=== PATIENT | female | born 1935 | race Caucasian/White ===

== ENCOUNTER 2022-10-31 12:46 | Emergency (ER) | payer OTHER, SELFPAY ==
[2022-10-31 13:00] VITALS: BP 134/86; PULSE 58; RESP 20; TEMP 36.2; O2SAT 98; BMI 38.6
--- NOTE | 2022-10-31 13:23 | CRLHL7_ITS ---
For Patients: As a result of the Cures Act, medical imaging exams and procedure reports are released immediately into your electronic medical record. You may view this report before your referring provider. If you have questions, please contact your health care provider. INDICATION: Shortness of breath. TECHNIQUE: Chest 1 views. COMPARISON: None. FINDINGS: Lungs: Clear lungs. No consolidation. Pleura: No pleural effusion or pneumothorax. Heart and Mediastinum: The cardiomediastinal silhouette is enlarged. The vessels are unremarkable. Bones: Unremarkable. IMPRESSION: No acute cardiopulmonary disease. Dictated by Chad Nunes MD @ 10/31/2022 2:20:40 PM (Electronically Signed)
--- OUTSIDE RECORDS SUMMARY | 2022-10-31 13:40 | XMS_ITS | Clinical Summary ---
:1935 Author Organization [email or web address] [facility] [place] [address] Care Team Providers Name Role Phone Pcp, No Primary Care Provider Unavailable Allergies Active Allergy Reactions Severity Noted Date Comments Alendronate Other - Describe In Low 12/16/2021 Nauseate d, joint Comment Field pain Codeine Rash 04/10/2015 Morphine Rash 04/10/2015 Phenobarbital Itching 07/15/2019 Sulfa (Sulfonamide Stomach Upset 04/10/2015 Antibiotics) Medications Medication Sig Dispensed Refills Start Date End Date Status albuterol HFA Inhale 2 0 04/10/2015 Activ e (PROAIR HFA) 90 Puffs by mcg/actuation mouth 4 inhaler times daily if needed. torsemide (DEMADEX) Take 1 30 tablet 2 07/22/2019 Active 10 mg tablet by tabletIndications: mouth once HTN (hypertension) daily. fluticasone Use once 0 01/14/2021 Active yac-zyhkdhjomzxl-oty daily anterol (Trelegy Ellipta) 100-62.5-25 mcg inhaler cholecalciferol Take 1 0 Acti ve (VITAMIN D3) 1,000 Capsule by unit capsule mouth. artificial tears, Place 1 Drop 0 Active [employer]-Uen, into the 0.1-0.3-0.2 % eye(s). ophthalmic solution ibuprofen (ADVIL; Take 400 mg 0 Active MOTRIN) 200 mg by mouth tablet every 6 hours if needed. Eliquis 2.5 mg Take 2.5 mg 0 05/08/2022 Ac tive tablet by mouth two times daily. metoprolol tartrate Take 1 0 10/02/2022 Active (LOPRESSOR) 50 mg Tablet (50 tablet mg) by mouth once daily. calcium carbonate Chew 1 0 10/02/2022 A ctive CHEWABLE (Tums Tablet by Ultra) 400 mg mouth once calcium (1,000 mg) daily. chew atorvastatin Take 1 0 10/02/2022 Active (LIPITOR) 80 mg Tablet (80 tablet mg) by mouth at bedtime. multivitamin (MVI) Take 1 0 10/02/2022 Active tablet Tablet by mouth once daily. carvedilol (COREG) 1 tablet 2 0 04/10/2015 Discontinued 3.125 mg tablet times daily. 2 ( *Patient states no longer taking/Not on sending fa cility list) potassium chloride Daily 0 07/15/2019 Discontinued (MICRO-K) 10 mEq 2 (*P atient states Controlled-release n o longer capsule taking/Not on sending fa cility list) apixaban (ELIQUIS) Twice A Day 0 Discontinued tablet in a dose 2 (*P atient states pack no longer taking/Not on sending fa cility list) calcium carbonate Daily 0 Di scontinued (OS-TOO 500) 500 mg 2 (*Patient states calcium (1,250 mg) n o longer tablet taking/Not on sending fa cility list) BREO ELLIPTA 100-25 3 05/21/2019 Discontinued mcg/dose inhaler 2 (*P atient states no longer taking/Not on sending fa cility list) lisinopril Take 1 30 tablet 3 07/22/2019 Disconti nued (PRINIVIL; ZESTRIL) tablet by 2 (*Patient states 20 mg mouth once no longer tabletIndications: daily. t aking/Not on HTN (hypertension) s ending facility list) atorvastatin 0 09/17/2022 Discon tinued (LIPITOR) 80 mg 2 (Reo rder tablet (E-cancel not sent)) metoprolol tartrate Take 50 mg 0 01/14/2021 10/02/20 2 Discontinued (LOPRESSOR) 50 mg by mouth. 2 (R eorder tablet (E-cancel not sent)) Active Problems Problem Noted Date Chronic atrial fibrillation 10/02/2022 COPD (chronic obstructive pulmonary disease) 2 Age related osteoporosis 10/02/2022 HTN (hypertension) 10/02/2022 Encounters Date Type Specialty Care Team Description 10/31/2022 Office Visit Karissa San PA Aiyana rtness Of Breath (Low heart rate and Bp at home, low energy) 10/31/2022 Telephone Karissa San PA ER visit 10/31/2022 Travel 10/29/2022 Nurse Triage Jaci Gómez Low Blo od Pressure MD Leann 10/23/2022 Orders Only Scanner <No scans attac hed> 10/23/2022 Orders Only Scanner <No scans attac hed> 10/20/2022 Telephone Jaci Gómez (Physical Therapy) MD Leann 10/02/2022 Office Visit [facility] (discharged MD Leann 09/18- stroke ) 10/02/2022 Travel from Last 3 Months Immunizations Name Administration Dates Next Due AMB INFLUENZA IIV3 (AGE 65+ YRS) PF (Flu Clinic Only) 2021 COVID-19 vaccine (Moderna 100mcg/0.5mL) MD JMV 07/11/2021, 06/13/2021 Hepatitis B (Adult) 11/23/1994 Influenza, High-dose Quadrivalent Inactivated 07/17/2022, Pneumococcal Poly,23-Valent (Pneumovax) 11/23/2001 Pneumococcal conj 7-Valent (Prevnar 7) 11/23/2014 Tdap 04/16/2022 Family History Medical History Relation Name Comments Other Daughter Adopted Other Son Adopted Relation Name Status Comments Daughter Alive Son Alive Social History Tobacco Use Types Packs/Day Years Used Date Former Smoker Smokeless Tobacco: Never Used Tobacco Cessation: Counseling Given: Yes Alcohol Use Standard Drinks/Week Comments Yes 0 (1 standard drink = 0.6 oz pure alcoho l) Alcohol Habits Answer Date Recorded How often do you have a drink containing alcohol? 2-4 times a month 07/22/2019 How many drinks containing alcohol do you have on a 1 or 2 07/22/2019 typical day when you are drinking? How often do you have six or more drinks on one Not asked occasion? 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 Obstetrics History Last Filed Vital Signs Vital Sign Reading Time Taken Comments Blood Pressure 97/62 10/31/2022 11:25 AM CONCRETE HOPPER OPERATOR Pulse 64 10/31/2022 11:25 AM CONCRETE HOPPER OPERATOR Temperature 37.2 ??C (98.9 ??F) 07/22/2019 2:39 PM CDT Respiratory Rate - - Oxygen Saturation 98% 10/31/2022 11:25 AM CONCRETE HOPPER OPERATOR Inhaled Oxygen Concentration - - Weight 101 kg (222 lb 9.6 oz) 10/02/2022 1:34 PM CONCRETE HOPPER OPERATOR Height 162 cm (5' 3.78) 07/22/2019 2:39 PM CDT Body Mass Index 38.47 07/22/2019 2:39 PM CDT Plan of Treatment Health Maintenance Due Date Last Done Comments Zoster (shingles) series for age 50+ 1987 (1 of 2) DEXA/DXA scan for age 65+ 2002 Medicare Wellness for age 65+ 2002 Pneumococcal series for age 65+ (2 - 11/23/2015 11/23/2014, 11/23/2001 PCV) BMI (ht and wt on same day) for age 0807/22/2020 07/22/2019 18+ Depression screening for age 12+ 07/22/2020 07/22/2019 COVID-19 vaccine series (3 - Booster 09/05/2021 07/11/2021, 06/13/2021 for Moderna series) Influenza for age 65+ 07/24/2022 07/17/2022, 07/17/2022, 08/20/2020 Tetanus booster 04/16/2032 04/16/2022 Tdap Completed 04/16/2022 Procedures Procedure Name Priority Date/Time Associated Diagnosis Comme nts SCAN CORRESP-EKG 10/23/2022 12:00 AM Resu lts for this RESULTS CONCRETE HOPPER OPERATOR procedure are i n the results section. SCAN 10/23/2022 12:00 AM Results for this CORRESP-DIAGNOSTICS CONCRETE HOPPER OPERATOR procedur e are in the results section. from Last 3 Months Results SCAN CORRESP-EKG RESULTS (10/23/2022 12:00 AM CONCRETE HOPPER OPERATOR) Narrative This result has an attachment that is no t available. Scanner OTHER SCAN CORRESP-DIAGNOSTICS (10/23/2022 12:00 AM CONCRETE HOPPER OPERATOR) Narrative This result has an attachment that is no t available. 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
[2022-10-31 13:44] VITALS: O2SAT 96
[2022-10-31 13:48] LABS: Basophils Percent Auto 0.3 % (0.0-3.0); Eosinophils Percent Auto 1.9 % (0.0-7.0); Hematocrit 38.3 % (33.0-51.0); Hemoglobin* 12.7 gm/dL (12.0-16.0); Immature Granulocytes Pct Auto 0.3 %; Lymphocytes Percent Auto 19.8 % (20-44); Mean Corpuscular HGB Conc 33 gm/dL (32-36); Mean Corpuscular Hemoglobin 28 pg (26-34); Mean Corpuscular Volume 83 fL (80-100); Monocytes Percent Auto 7.9 % (0.0-11.0); Neutrophils Percent Auto 69.8 % (42.0-72.0); Platelet Count* 354 K/uL (140-440); RDW Coefficient of Variation % 13.6 % (11.5-15.5); Red Blood Count 4.59 m/uL (4.00-5.20); White Blood Count* 11.69 K/uL (4.50-11.00)
[2022-10-31 13:53] LABS: Slide Review Reflex No
[2022-10-31 13:55] LABS: Appearance Urine Clear (Clear); Bilirubin Urine Negative (Negative); Blood Urine Trace-intact (Negative); Color Urine Yellow (Yellow); Glucose Urine Negative (Negative); Ketones Urine Negative (Negative); Leukocyte Esterase Urine Negative (Negative); Nitrite Urine Negative (Negative); Protein Urine Negative (Negative); Urobilinogen Urine 0.2 (0.2-1.0); pH Urine 6.5 (5.0-8.5)
[2022-10-31 13:59] LABS: Albumin* 4.2 g/dL (3.3-5.0); Chloride* 96 mmol/L (96-114); Sodium* 132 mmol/L (135-149)
[2022-10-31 14:01] LABS: Creatinine* 0.9 mg/dL (0.5-1.5); Est. Creatinine Clearance* 36.16; Estimated Glomerular Filt Rate 63 ml/min
[2022-10-31 14:02] LABS: Alanine Aminotransferase* 26 U/L (4-35); Alkaline Phosphatase* 113 U/L (40-150); Aspartate Amino Transferase* 33 U/L (12-35); Bilirubin Direct* 0.2 mg/dL (0.0-0.5); Bilirubin Total* 0.6 mg/dL (0.1-1.5); Blood Urea Nitrogen* 17 mg/dL (7-30); Carbon Dioxide* 27 mmol/L (20-32); Glucose* 98 mg/dL (60-115); Total Protein* 7.1 g/dL (6.0-8.3)
[2022-10-31 14:03] LABS: Calcium* 8.5 mg/dL (8.4-10.6)
[2022-10-31 14:05] LABS: C Reactive Protein* 1.6 mg/dL (0.5-1.0)
[2022-10-31] MEDS: IPRAT-ALBUT 0.5-2.5 MG/3 ML NEB 1 NEB IH (14:05)
[2022-10-31 14:06] LABS: RBC Urine 0-2 (0-2); WBC Urine 0-2 (0-5)
[2022-10-31 14:11] VITALS: PULSE 71; O2SAT 100
[2022-10-31 14:19] LABS: PCR FLU A Negative PCR FLU A (Negative); PCR FLU B Negative PCR FLU B (Negative)
[2022-10-31 14:21] VITALS: BP 138/89; PULSE 76; O2SAT 96
[2022-10-31 14:25] LABS: SARS PCR* Negative SARS-CoV-2 (Negative)
[2022-10-31 14:31] VITALS: BP 142/80; PULSE 76; O2SAT 94
[2022-10-31 14:32] VITALS: PULSE 84; O2SAT 97
[2022-10-31 14:33] LABS: Troponin I* < 0.01 ng/mL (0.01-0.04)
--- NOTE | 2022-10-31 14:33 | ED.NURSE ---
feels improved after neb
--- NOTE | 2022-10-31 14:38 | ED_ITS ---
HPI - General Adult General Chief complaint: Shortness of Breath/Dyspnea Stated complaint: Irregular EKG Time Seen by Provider: 10/31/22 12:52 Source: patient Mode of arrival: ambulatory Limitations: no limitations History of Present Illness HPI narrative: 86-year-old female coming in today concerned about shortness of breath. She has felt this way for about a week with worsening shortness of breath. She does h ave a COPD which is not oxygen dependent. She denies any fevers or chills. No changes in her appetite. She does have a cough which is not new. She denies difficulty sleeping at night or lying flat. She denies swelling of her legs. She denies chest pain. Shortness of breath comes on with minimal exertion, which she also has some baseline shortness of breath at rest. Patient is in [place] resident, moved to [place] last August. She denies any recent trips. No recent surgeries. Patient's past medical history significant for COPD for which she is on Trelegy. Atrial fibrillation-patient is on daily aspirin and Eliquis. History of CVA-patient is on atorvastatin. She is also on daily metoprolol and torsemide. Related Data Home Medications Medication Instructions Recorded Confirmed apixaban 2.5 mg tablet (Eliquis) 2.5 mg PO Q12H 10/31/22 10/31/22 aspirin 81 mg chewable tablet 81 mg PO DAILY 10/31/22 10/31/22 (Aspirin Childrens) atorvastatin 80 mg tablet (Lipitor) 80 mg PO DAILY 10/31/22 10/31/22 fluticasone fur. 100 mcg-umeclid 1 inh inhalation Q24H 10/31/22 10/31/22 62.5 mcg-vilant 25 mcg inhalat.powder (Trelegy Ellipta) metoprolol tartrate 50 mg tablet 50 mg PO DAILY 10/31/22 10/31/22 torsemide 10 mg tablet 10 mg PO DAILY 10/31/22 10/31/22 Previous Rx's Medication Instructions Recorded methylprednisolone 4 mg tablets in See Rx Instructions PO .COMPLEX 10/31/22 a dose pack (Medrol (Michael)) #21 ea Allergies Allergy/AdvReac Type Severity Reaction Status Date / Time codeine Allergy Mild itchy Verified 10/31/22 13:06 morphine Allergy Mild itchy Verified 10/31/22 13:06 Sulfa (Sulfonamide Allergy Mild rash Verified 10/31/22 13:06 Antibiotics) oxycodone Allergy Mild stomach Uncoded 10/31/22 13:06 upset Review of Systems Status of ROS: Reports: 10 or more systems reviewed and unremarkable except as noted in History and below [facility] Social History Smoking Status: Never smoker Do you use any of these nicotine containing products: None How often do you have a drink containing alcohol: never How often do you have six or more drinks on one occasion: Never AUDIT-C Alcohol total score: 0 Non-prescribed substance use: denies use Exam Narrative: Exam Narrative: Overweight, well-developed patient in no acute distress. Alert and oriented. Answers questions appropriately. Mood and affect are appropriate. Thoughts are goal oriented and rational. No tangential or magical thinking noted. Patient speaks in full sentences without needing to catch her breath. Speech is not slurred or pressured. HEENT: Normocephalic atraumatic. Pupils are equally round reactive to light. Extraocular muscles are intact. Conjunctivae are moist without any icterus noted. Moist mucous membranes. Cardiovascular: Heart is regular rate and rhythm S1 and S2 are present without any murmurs. Lungs: Bilateral wheezing is appreciated. Abdomen: Soft and nontender nondistended with normal bowel sounds. No guarding or rebound. Extremities: Bilateral lower extremities are without edema. Normal DP and PT pulses. Skin: Well perfused without any obvious rashes. Const: Vital Signs, click to edit/add: Vital Signs - 24 hr 10/31/22 13:00 10/31/22 13:44 10/31/22 14:11 Temperature 97.1 F L Pulse Rate 71 Pulse Rate [Left P ulse Oximeter] 58 L Respiratory Rate 20 Blood Pressure [Ri ght Upper Arm] 134/86 Pulse Oximetry 98 96 100 Oxygen Delivery Me thod Room Air Course Course Hospital Course: Patient received a DuoNeb which did seem to make her feel better. Lab work was unremarkable. EKG, read by me, shows atrial fibrillation with a pulse of 59. Chest x-ray, read by me, was unremarkable. Patient had no evidence of hypoxia or tachypnea while she was here. Vital Signs Vital signs: Initial Vital Signs Temperature 97.1 F L 10/31/22 13:00 Temperature Source Temporal Artery Scan 10/31/22 13:00 Pulse Rate 58 L 10/31/22 13:00 Respiratory Rate 20 10/31/22 13:00 Blood Pressure 134/86 10/31/22 13:00 Blood Pressure Mean 102 10/31/22 13:00 Blood Pressure Position Sitting 10/31/22 13:00 Pulse Oximetry 98 10/31/22 13:00 Oxygen Delivery Method 10/31/22 13:00 Vital Signs Temperature 97.1 F L 10/31/22 13:00 Pulse Rate 58 L 10/31/22 13:00 Respiratory Rate 20 10/31/22 13:00 Blood Pressure 134/86 10/31/22 13:00 Pulse Oximetry 98 10/31/22 13:00 Oxygen Delivery Method 10/31/22 13:00 Temperature 97.1 F L 10/31/22 13:00 Pulse Rate 71 10/31/22 14:11 Respiratory Rate 20 10/31/22 13:00 Blood Pressure 134/86 10/31/22 13:00 Pulse Oximetry 100 10/31/22 14:11 Oxygen Delivery Method 10/31/22 13:00 Medical Decision Making MDM Narrative Medical decision making narrative: 86-year-old female with a probable COPD exacerbation which is fairly mild. Will treat her with a Medrol Dosepak. I do want her follow-up with primary care next week. Patient was agreeable with everything we discussed had no other questions. Lab Data Lab results reviewed: Yes I reviewed the patient's lab results Labs: Lab Results 10/31/22 10/31/22 10/31/22 Range/Units 13:23 13:37 13:37 WBC 11.69 H (4.50-11.00) K/uL RBC 4.59 (4.00-5.20) m/uL Hgb 12.7 (12.0-16.0) gm/dL Hct 38.3 (33.0-51.0) % MCV 83 (80-100) fL MCH 28 (26-34) pg MCHC 33 (32-36) gm/dL RDW Coeff of Marissa 13.6 (11.5-15.5) % Plt Count 354 (140-440) K/uL Neut % (Auto) 69.8 (42.0-72.0) % Lymph % (Auto) 19.8 L (20-44) % Walker % (Auto) 7.9 (0.0-11.0) % Eos % (Auto) 1.9 (0.0-7.0) % Baso % (Auto) 0.3 (0.0-3.0) % Neut # (Auto) 8.20 H (1.7-7.0) K/uL Lymph # (Auto) 2.30 (0.90-2.90) K/uL Walker # (Auto) 0.90 (0.00-0.90) K/UL Eos # (Auto) 0.20 (0.00-0.50) K/uL Baso # (Auto) 0.00 (0.00-0.30) K/uL Abs Immat Gran (auto) 0.00 (0.00-0.30) K/uL Imm/Tot Granulo (auto) 0.3 % Sodium 132 L (135-149) mmol/L Potassium 4.0 (3.6-5.1) mmol/L Chloride 96 (96-114) mmol/L Carbon Dioxide 27 (20-32) mmol/L BUN 17 (7-30) mg/dL Creatinine 0.9 (0.5-1.5) mg/dL Estimated Creat Clear 36.16 Estimated GFR 63 ml/min Glucose 98 (60-115) mg/dL Calcium 8.5 (8.4-10.6) mg/dL Total Bilirubin 0.6 (0.1-1.5) mg/dL Direct Bilirubin 0.2 (0.0-0.5) mg/dL AST 33 (12-35) U/L ALT 26 (4-35) U/L Alkaline Phosphatase 113 (40-150) U/L Troponin I (0.01-0.04) ng/mL C-Reactive Protein 1.6 H (0.5-1.0) mg/dL Total Protein 7.1 (6.0-8.3) g/dL Albumin 4.2 (3.3-5.0) g/dL Urine Color (Yellow) Urine Appearance (Clear) Urine pH (5.0-8.5) Ur Specific [place] (1.000-1.030) Urine Protein (Negative) Urine Glucose (UA) (Negative) Urine Ketones (Negative) Urine Blood (Negative) Urine Nitrite (Negative) Urine Bilirubin (Negative) Urine Urobilinogen (0.2-1.0) Ur Leukocyte Esterase (Negative) Urine RBC (0-2) Urine WBC (0-5) Ur Squamous Epith Cells (None-Few) Urine Bacteria (None) SARS-CoV-2 (PCR) Negative SARS-CoV-2 (Negative) Influenza Type A (PCR) Negative PCR FLU A (Negative) Influenza Type B (PCR) Negative PCR FLU B (Negative) 10/31/22 10/31/22 Range/Units 13:37 13:45 WBC (4.50-11.00) K/uL RBC (4.00-5.20) m/uL Hgb (12.0-16.0) gm/dL Hct (33.0-51.0) % MCV (80-100) fL MCH (26-34) pg MCHC (32-36) gm/dL RDW Coeff of Marissa (11.5-15.5) % Plt Count (140-440) K/uL Neut % (Auto) (42.0-72.0) % Lymph % (Auto) (20-44) % Walker % (Auto) (0.0-11.0) % Eos % (Auto) (0.0-7.0) % Baso % (Auto) (0.0-3.0) % Neut # (Auto) (1.7-7.0) K/uL Lymph # (Auto) (0.90-2.90) K/uL Walker # (Auto) (0.00-0.90) K/UL Eos # (Auto) (0.00-0.50) K/uL Baso # (Auto) (0.00-0.30) K/uL Abs Immat Gran (auto) (0.00-0.30) K/uL Imm/Tot Granulo (auto) % Sodium (135-149) mmol/L Potassium (3.6-5.1) mmol/L Chloride (96-114) mmol/L Carbon Dioxide (20-32) mmol/L BUN (7-30) mg/dL Creatinine (0.5-1.5) mg/dL Estimated Creat Clear Estimated GFR ml/min Glucose (60-115) mg/dL Calcium (8.4-10.6) mg/dL Total Bilirubin (0.1-1.5) mg/dL Direct Bilirubin (0.0-0.5) mg/dL AST (12-35) U/L ALT (4-35) U/L Alkaline Phosphatase (40-150) U/L Troponin I < 0.01 L (0.01-0.04) ng/mL C-Reactive Protein (0.5-1.0) mg/dL Total Protein (6.0-8.3) g/dL Albumin (3.3-5.0) g/dL Urine Color Yellow (Yellow) Urine Appearance Clear (Clear) Urine pH 6.5 (5.0-8.5) Ur Specific [place] 1.010 (1.000-1.030) Urine Protein Negative (Negative) Urine Glucose (UA) Negative (Negative) Urine Ketones Negative (Negative) Urine Blood Trace-intact A (Negative) Urine Nitrite Negative (Negative) Urine Bilirubin Negative (Negative) Urine Urobilinogen 0.2 (0.2-1.0) Ur Leukocyte Esterase Negative (Negative) Urine RBC 0-2 (0-2) Urine WBC 0-2 (0-5) Ur Squamous Epith Cells None (None-Few) Urine Bacteria None (None) SARS-CoV-2 (PCR) (Negative) Influenza Type A (PCR) (Negative) Influenza Type B (PCR) (Negative) Imaging Data Chest x-ray: Attestation: I have reviewed the pertinent imaging results. Radiologist's impression: Chest 1 views. COMPARISON: None. FINDINGS: Lungs: Clear lungs. No consolidation. Pleura: No pleural effusion or pneumothorax. Heart and Mediastinum: The cardiomediastinal silhouette is enlarged. The vessels are unremarkable. Bones: Unremarkable. IMPRESSION: No acute cardiopulmonary disease. ECG Data Attestation: I personally reviewed and interpreted this ECG as follows: (Atrial fibrillation, pulse 59) Discharge Plan Discharge Clinical Impression: COPD exacerbation Patient Disposition: Home, Self-Care Condition: Stable Additional Instructions: Take steroids as prescribed. Follow-up with your primary care provider next week for a checkup. Return to the ER if your symptoms are getting worse instead of better. Prescriptions: New methylprednisolone [Medrol (Michael)] 4 mg tablets,dose pack See Rx Instructions .ROUTE .COMPLEX Qty: 21 0RF Rx Instructions: orally per package directions No Action Eliquis 2.5 mg tablet 2.5 mg PO Q12H Label Comments: TAKE 1 TABLET BY MOUTH TWICE DAILY torsemide 10 mg tablet 10 mg PO DAILY Label Comments: TAKE 1 TABLET BY MOUTH TWICE DAILY metoprolol tartrate 50 mg tablet 50 mg PO DAILY Label Comments: TAKE 1 TABLET BY MOUTH EVERY DAY WITH MEALS Trelegy Ellipta 100-62.5-25 mcg blister with device 1 inh INHALATION Q24H Label Comments: INHALE 1 PUFF BY MOUTH EVERY DAY atorvastatin [Lipitor] 80 mg tablet 80 mg PO DAILY aspirin [Aspirin Childrens] 81 mg tablet,chewable 81 mg PO DAILY Follow Up/Referrals: Provider,Not a Local [Primary Care Provider] - Stand Alone Forms: [email or web address] Info Instructions
== END 2022-10-31 15:13 | disposition home or self-care (01) ==
PROVIDERS: Emergency Provider Family Medicine
DX: J44.1 Chronic obstructive pulmonary disease with (acute) exacerbation (principal)
CPT/HCPCS: 36415; 71046; 80048; 80076; 81003; 81015; 84484; 85025; 86140; 87631; 93005; 94640; 94761; 99284; 99285

== ENCOUNTER 2022-12-07 04:15 | Outpatient (CLI) | payer OTHER, SELFPAY | END 2022-12-07 04:16 | disposition home or self-care (01) | LOC: AMB 12-08 01:35 | PROVIDERS: Visit Provider Family Medicine | DX: R10.9 Unspecified abdominal pain (principal) | CPT/HCPCS: A0425; A0433 ==

== ENCOUNTER 2022-12-07 04:57 | Inpatient (IN) | payer OTHER, SELFPAY ==
[2022-12-07] VITALS (37 sets, daily range): BP systolic 103–176; BP diastolic 66–113; PULSE 66–101; RESP 16–20; TEMP 36.4–37.4; O2SAT 87–98; BMI 36.4
--- NOTE | 2022-12-07 05:39 | ED_ITS ---
HPI - Abdominal Pain General Chief Complaint: Abdominal Pain Stated Complaint: Abdominal Pain Time Seen by Provider: 12/07/22 05:29 History of Present Illness HPI narrative: 87 yo woman presenting to the ED with almost 8 hours now of colicky abdominal pain. Would describe herself as constipated. Has struggled with this for years. However did have a bowel movement earlier today. Prior to that had been a couple of days. No fever. Is nauseated. Does not feel she needs anything fo r pain right now. Did receive something for nausea and pain via EMS. Initiated on fluids. Never history kidney stones. History of smoking but quit 27-30 years ago. Tingling in her feet that is chronic. Otherwise no pain radiating pain to arms or legs. No loss of sensation otherwise. No dysuria or frequency. Generally lives in [place]. Here staying with daughter. 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 History of chronic atrial fibrillation anticoagulated with apixaban and rate controlled History of CLL Hypertension COPD History of venous stasis leg disease with endovenous ablation bilaterally history of endometriosis status post total abdominal hysterectomy with bilateral salpingo-oophorectomy Related Data Home Medications Medication Instructions Recorded Confirmed apixaban 2.5 mg tablet (Eliquis) 2.5 mg PO Q12H 10/31/22 10/31/22 aspirin 81 mg chewable tablet 81 mg PO DAILY 10/31/22 10/31/22 (Aspirin Childrens) atorvastatin 80 mg tablet (Lipitor) 80 mg PO DAILY 10/31/22 10/31/22 fluticasone fur. 100 mcg-umeclid 1 inh inhalation Q24H 10/31/22 10/31/22 62.5 mcg-vilant 25 mcg inhalat.powder (Trelegy Ellipta) metoprolol tartrate 50 mg tablet 50 mg PO DAILY 10/31/22 10/31/22 torsemide 10 mg tablet 10 mg PO DAILY 10/31/22 10/31/22 Previous Rx's Medication Instructions Recorded methylprednisolone 4 mg tablets in See Rx Instructions PO .COMPLEX 10/31/22 a dose pack (Medrol (Michael)) #21 ea Allergies Allergy/AdvReac Type Severity Reaction Status Date / Time codeine Allergy Mild itchy Verified 10/31/22 13:06 morphine Allergy Mild itchy Verified 10/31/22 13:06 Sulfa (Sulfonamide Allergy Mild rash Verified 10/31/22 13:06 Antibiotics) oxycodone Allergy Mild stomach Uncoded 10/31/22 13:06 upset Review of Systems Status of ROS Reports: 10 or more systems reviewed and unremarkable except as noted in History and below [facility] Social History Smoking Status: Never smoker Do you use any of these nicotine containing products: None How often do you have a drink containing alcohol: never How often do you have six or more drinks on one occasion: Never AUDIT-C Alcohol total score: 0 Non-prescribed substance use: denies use service: No Exam Narrative: Exam Narrative: Seems generally uncomfortable as she looks me up and down. Skin is warm and dry. No no extremity edema maybe little dependent in the lower extremities with some diffuse superficial varicosities. Oropharynx is rather dry. Cranial nerves 2-12 look to be intact. Lungs with clearing bi basilar crepitus otherwise clear. heart appears to be irregularly irregular. Abdomen with normoactive bowel sounds. Quite tender in right upper quadrant and little bit in the epigastrium. No peritoneal signs Const: Vital Signs, click to edit/add: Vital Signs - 24 hr 12/07/22 05:04 12/07/22 06:34 12/07/22 07:06 Temperature 97.6 F Pulse Rate Pulse Rate [Right Pulse Oximeter] 76 75 67 Respiratory Rate 20 18 16 Blood Pressure Blood Pressure [Le ft Upper Arm] 147/98 H 171/113 H 171/106 H Pulse Oximetry 96 98 92 Oxygen Delivery Me thod Room Air Room Air Room Air 12/07/22 07:30 12/07/22 08:35 12/07/22 08:36 Temperature Pulse Rate 101 H Pulse Rate [Right Pulse Oximeter] 79 Respiratory Rate Blood Pressure 165/80 H Blood Pressure [Le ft Upper Arm] 151/102 H Pulse Oximetry 96 92 Oxygen Delivery Me thod Room Air 12/07/22 08:00 Temperature Pulse Rate Pulse Rate [Right Pulse Oximeter] 89 Respiratory Rate Blood Pressure Blood Pressure [Le ft Upper Arm] 166/113 H Pulse Oximetry 95 Oxygen Delivery Me thod Room Air Documenting provider has reviewed patient's vital signs: yes Course Vital Signs Vital signs: Initial Vital Signs Temperature 97.6 F 12/07/22 05:04 Temperature Source Temporal Artery Scan 12/07/22 05:04 Pulse Rate 76 12/07/22 05:04 Pulse Rhythm 12/07/22 05:04 Respiratory Rate 20 12/07/22 05:04 Blood Pressure 147/98 H 12/07/22 05:04 Blood Pressure Mean 114 12/07/22 05:04 Blood Pressure Position Semi-Fowlers 12/07/22 05:04 Pulse Oximetry 96 12/07/22 05:04 Oxygen Delivery Method 12/07/22 05:04 Vital Signs Temperature 97.6 F 12/07/22 05:04 Pulse Rate 76 12/07/22 05:04 Respiratory Rate 20 12/07/22 05:04 Blood Pressure 147/98 H 12/07/22 05:04 Pulse Oximetry 96 12/07/22 05:04 Oxygen Delivery Method 12/07/22 05:04 Temperature 97.6 F 12/07/22 05:04 Pulse Rate 101 H 12/07/22 08:35 Respiratory Rate 16 12/07/22 07:06 Blood Pressure 165/80 H 12/07/22 08:36 Pulse Oximetry 92 12/07/22 08:35 Oxygen Delivery Method 12/07/22 08:00 MDM - Abdominal Pain MDM Narrative Medical decision making narrative: Certainly could simply be constipation, for pain on exam at least most concentrated right upper quadrant. Initially ordered of flat plate of the abdomen. She noted initially she did feel she needed anything for pain but after I left did request pain medication. Was ordered for fentanyl which showed apparently did help. Has required repeat dosing. White count rather elevated. Will change flat plate to CT. Transaminases show an AST of 44. IV contrasted CT scan by my read shows atherosclerotic disease and a rather dilated gallbladder. Radiology over-read as below Indication: Abdominal pain, right upper quadrant Comparison: 07/15/2019 Technique: CT of the abdomen and pelvis with intravenous contrast. Findings: Gallbladder distention measuring up to 5.1 cm, with pericholecystic fat stranding seen. Small amount of high density material seen within the gallbladder on image 71, series 2. Trace/mild intrahepatic biliary ductal dilatation. The common bile duct appears normal in size. Duodenal diverticulum is present. No pancreatic ductal dilatation. Coronary artery calcifications. Biatrial enlargement. No pericardial effusion. No pleural effusion lung bases. Severe atherosclerotic disease. No abdominal aortic aneurysm. Non cirrhotic liver morphology with patent portal and hepatic veins. No suspicious liver lesion. The spleen is normal size. Adrenal glands appear unremarkable. The kidneys enhance symmetrically without hydronephrosis. No bowel obstruction. The urinary bladder appears unremarkable. Hysterectomy change. No suspicious adnexal mass. The bones appear stable. Mild wedging of several lower thoracic vertebral bodies. Large body habitus. End-stage degenerative change left hip. Mild degenerative change right hip. Impression: Acute cholecystitis. I have spoke with our surgeon who would anticipate admission with antibiotics and surgery pending hold of anticoagulant. At this time struggling with bed availability. Hoping to still admit at this facility but also looking elsewhere. This disposition pending at change of shift handoff. Medical Records Attestation: I reviewed the patient's medical records. Lab Data Attestation: I reviewed the patient's lab results. Labs: Lab Results 12/07/22 12/07/22 12/07/22 Range/Units 05:56 05:56 05:56 WBC 15.78 H (4.50-11.00) K/uL RBC 4.34 (4.00-5.20) m/uL Hgb 12.1 (12.0-16.0) gm/dL Hct 36.9 (33.0-51.0) % MCV 85 (80-100) fL MCH 28 (26-34) pg MCHC 33 (32-36) gm/dL RDW Coeff of Marissa 14.2 (11.5-15.5) % Plt Count 290 (140-440) K/uL Neut % (Auto) 76.2 H (42.0-72.0) % Lymph % (Auto) 13.3 L (20-44) % [place] % (Auto) 6.7 (0.0-11.0) % Eos % (Auto) 3.2 (0.0-7.0) % Baso % (Auto) 0.3 (0.0-3.0) % Neut # (Auto) 12.00 H (1.7-7.0) K/uL Lymph # (Auto) 2.10 (0.90-2.90) K/uL [place] # (Auto) 1.10 H (0.00-0.90) K/UL Eos # (Auto) 0.50 (0.00-0.50) K/uL Baso # (Auto) 0.00 (0.00-0.30) K/uL INR 1.22 H (0.91-1.10) APTT 34 H (23-33) Seconds D-Dimer Quant (PE/DVT) 0.51 H (0.00-0.50) ug/ml Sodium 134 L (135-149) mmol/L Potassium 4.3 (3.6-5.1) mmol/L Chloride 103 (96-114) mmol/L Carbon Dioxide 25 (20-32) mmol/L BUN 24 (7-30) mg/dL Creatinine 0.9 (0.5-1.5) mg/dL Estimated GFR 63 ml/min Glucose 133 H (60-115) mg/dL Calcium 8.9 (8.4-10.6) mg/dL Total Bilirubin (0.1-1.5) mg/dL Direct Bilirubin (0.0-0.5) mg/dL AST (12-35) U/L ALT (4-35) U/L Alkaline Phosphatase (40-150) U/L C-Reactive Protein 0.5 (0.5-1.0) mg/dL Total Protein (6.0-8.3) g/dL Albumin (3.3-5.0) g/dL Lipase (23-300) U/L Urine Color (Yellow) Urine Appearance (Clear) Urine pH (5.0-8.5) Ur Specific [place] (1.000-1.030) Urine Protein (Negative) Urine Glucose (UA) (Negative) Urine Ketones (Negative) Urine Blood (Negative) Urine Nitrite (Negative) Urine Bilirubin (Negative) Urine Urobilinogen (0.2-1.0) Ur Leukocyte Esterase (Negative) Urine RBC (0-2) Urine WBC (0-5) Ur Squamous Epith Cells (None-Few) Urine Bacteria (None) Ethyl Alcohol (0.01-0.03) % 12/07/22 12/07/22 Range/Units 05:56 07:20 WBC (4.50-11.00) K/uL RBC (4.00-5.20) m/uL Hgb (12.0-16.0) gm/dL Hct (33.0-51.0) % MCV (80-100) fL MCH (26-34) pg MCHC (32-36) gm/dL RDW Coeff of Marissa (11.5-15.5) % Plt Count (140-440) K/uL Neut % (Auto) (42.0-72.0) % Lymph % (Auto) (20-44) % [place] % (Auto) (0.0-11.0) % Eos % (Auto) (0.0-7.0) % Baso % (Auto) (0.0-3.0) % Neut # (Auto) (1.7-7.0) K/uL Lymph # (Auto) (0.90-2.90) K/uL [place] # (Auto) (0.00-0.90) K/UL Eos # (Auto) (0.00-0.50) K/uL Baso # (Auto) (0.00-0.30) K/uL INR (0.91-1.10) APTT (23-33) Seconds D-Dimer Quant (PE/DVT) (0.00-0.50) ug/ml Sodium (135-149) mmol/L Potassium (3.6-5.1) mmol/L Chloride (96-114) mmol/L Carbon Dioxide (20-32) mmol/L BUN (7-30) mg/dL Creatinine (0.5-1.5) mg/dL Estimated GFR ml/min Glucose (60-115) mg/dL Calcium (8.4-10.6) mg/dL Total Bilirubin 0.8 (0.1-1.5) mg/dL Direct Bilirubin 0.3 (0.0-0.5) mg/dL AST 44 H (12-35) U/L ALT 33 (4-35) U/L Alkaline Phosphatase 153 H (40-150) U/L C-Reactive Protein (0.5-1.0) mg/dL Total Protein 6.5 (6.0-8.3) g/dL Albumin 3.8 (3.3-5.0) g/dL Lipase 128 (23-300) U/L Urine Color Yellow (Yellow) Urine Appearance Clear (Clear) Urine pH 6.0 (5.0-8.5) Ur Specific [place] 1.015 (1.000-1.030) Urine Protein Negative (Negative) Urine Glucose (UA) Negative (Negative) Urine Ketones 1+ A (Negative) Urine Blood Trace-intact A (Negative) Urine Nitrite Negative (Negative) Urine Bilirubin Negative (Negative) Urine Urobilinogen 0.2 (0.2-1.0) Ur Leukocyte Esterase Negative (Negative) Urine RBC 0-2 (0-2) Urine WBC 0-2 (0-5) Ur Squamous Epith Cells None (None-Few) Urine Bacteria Few A (None) Ethyl Alcohol < 0.01 L (0.01-0.03) % Discharge Plan Discharge Clinical Impression: Abdominal pain, Acute cholecystitis Prescriptions: No Action Eliquis 2.5 mg tablet 2.5 mg PO Q12H Label Comments: TAKE 1 TABLET BY MOUTH TWICE DAILY torsemide 10 mg tablet 10 mg PO DAILY Label Comments: TAKE 1 TABLET BY MOUTH TWICE DAILY metoprolol tartrate 50 mg tablet 50 mg PO DAILY Label Comments: TAKE 1 TABLET BY MOUTH EVERY DAY WITH MEALS Trelegy Ellipta 100-62.5-25 mcg blister with device 1 inh INHALATION Q24H Label Comments: INHALE 1 PUFF BY MOUTH EVERY DAY atorvastatin [Lipitor] 80 mg tablet 80 mg PO DAILY aspirin [Aspirin Childrens] 81 mg tablet,chewable 81 mg PO DAILY methylprednisolone [Medrol (Michael)] 4 mg tablets,dose pack See Rx Instructions .ROUTE .COMPLEX Qty: 21 0RF Rx Instructions: orally per package directions Follow Up/Referrals: Provider,Not a Local [Primary Care Provider] -
[2022-12-07] MEDS: 0.9 % SODIUM CHLORIDE 1000 ml 1,000 ML IV (05:51)
[2022-12-07 06:01] LABS: Basophils Percent Auto 0.3 % (0.0-3.0); Eosinophils Percent Auto 3.2 % (0.0-7.0); Hematocrit 36.9 % (33.0-51.0); Hemoglobin* 12.1 gm/dL (12.0-16.0); Immature Granulocytes Pct Auto 0.3 %; Lymphocytes Percent Auto 13.3 % (20-44); Mean Corpuscular HGB Conc 33 gm/dL (32-36); Mean Corpuscular Hemoglobin 28 pg (26-34); Mean Corpuscular Volume 85 fL (80-100); Monocytes Percent Auto 6.7 % (0.0-11.0); Neutrophils Percent Auto 76.2 % (42.0-72.0); Platelet Count* 290 K/uL (140-440); RDW Coefficient of Variation % 14.2 % (11.5-15.5); Red Blood Count 4.34 m/uL (4.00-5.20); White Blood Count* 15.78 K/uL (4.50-11.00)
[2022-12-07 06:02] LABS: Slide Review Reflex No
--- NOTE | 2022-12-07 06:06 | CRLHL7_ITS ---
For Patients: As a result of the Century Cures Act, medical imaging exams and procedure reports are released immediately into your electronic medical record. You may view this report before your referring provider. If you have questions, please contact your health care provider. Indication: Abdominal pain, right upper quadrant Comparison: 07/15/2019 Technique: CT of the abdomen and pelvis with intravenous contrast. Findings: Gallbladder distention measuring up to 5.1 cm, with pericholecystic fat stranding seen. Small amount of high density material seen within the gallbladder on image 71, series 2. Trace/mild intrahepatic biliary ductal dilatation. The common bile duct appears normal in size. Duodenal diverticulum is present. No pancreatic ductal dilatation. Coronary artery calcifications. Biatrial enlargement. No pericardial effusion. No pleural effusion lung bases. Severe atherosclerotic disease. No abdominal aortic aneurysm. Non cirrhotic liver morphology with patent portal and hepatic veins. No suspicious liver lesion. The spleen is normal size. Adrenal glands appear unremarkable. The kidneys enhance symmetrically without hydronephrosis. No bowel obstruction. The urinary bladder appears unremarkable. Hysterectomy change. No suspicious adnexal mass. The bones appear stable. Mild wedging of several lower thoracic vertebral bodies. Large body habitus. End-stage degenerative change left hip. Mild degenerative change right hip. Impression: Acute cholecystitis. Please note that all CT scans at this facility use dose modulation, iterative reconstruction, and/or weight-based dosing when appropriate to reduce radiation dose to as low as reasonably achievable. Dictated by Estuardo Carroll MD @ 12/07/2022 8:12:21 AM (Electronically Signed)
[2022-12-07 06:14] LABS: Chloride* 103 mmol/L (96-114); Potassium* 4.3 mmol/L (3.6-5.1); Sodium* 134 mmol/L (135-149)
[2022-12-07 06:15] LABS: Albumin* 3.8 g/dL (3.3-5.0)
[2022-12-07 06:17] LABS: Creatinine* 0.9 mg/dL (0.5-1.5); Estimated Glomerular Filt Rate 63 ml/min
[2022-12-07 06:18] LABS: Aspartate Amino Transferase* 44 U/L (12-35); Bilirubin Direct* 0.3 mg/dL (0.0-0.5); Bilirubin Total* 0.8 mg/dL (0.1-1.5); Blood Urea Nitrogen* 24 mg/dL (7-30); Calcium* 8.9 mg/dL (8.4-10.6); Carbon Dioxide* 25 mmol/L (20-32); Glucose* 133 mg/dL (60-115); Total Protein* 6.5 g/dL (6.0-8.3)
[2022-12-07 06:19] LABS: Alanine Aminotransferase* 33 U/L (4-35); Alkaline Phosphatase* 153 U/L (40-150); Lipase* 128 U/L (23-300)
[2022-12-07 06:20] LABS: D Dimer Quantitative* 0.51 ug/ml (0.00-0.50); Ethanol* < 0.01 % (0.01-0.03)
[2022-12-07 06:21] LABS: C Reactive Protein* 0.5 mg/dL (0.5-1.0)
[2022-12-07] MEDS: fentaNYL 100 MCG/2 ML inj 25 MCG IVP ×4 (06:33→13:56)
[2022-12-07 07:33] LABS: Appearance Urine Clear (Clear); Bilirubin Urine Negative (Negative); Blood Urine Trace-intact (Negative); Color Urine Yellow (Yellow); Glucose Urine Negative (Negative); Ketones Urine 1+ (Negative); Leukocyte Esterase Urine Negative (Negative); Nitrite Urine Negative (Negative); Protein Urine Negative (Negative); Specific Gravity Urine 1.015 (1.000-1.030); Urobilinogen Urine 0.2 (0.2-1.0)
[2022-12-07 07:49] LABS: RBC Urine 0-2 (0-2); WBC Urine 0-2 (0-5)
[2022-12-07 07:50] LABS: Bacteria Urine Few
[2022-12-07 08:49] LABS: INR 1.22 (0.91-1.10); Prothrombin Time 16.1 Seconds
[2022-12-07 08:50] LABS: Partial Thromboplastin Time* 34 Seconds (23-33)
--- NOTE | 2022-12-07 09:10 | ED.NURSE ---
HYDRATE CONTROL TENDER swabbed
[2022-12-07 10:16] LABS: SARS PCR* Negative SARS-CoV-2 (Negative)
--- NOTE | 2022-12-07 10:54 | ED.NURSE ---
pt was able to sleep for a little bit. up to bsc with assist. RUQ pain continues, asking for more pain meds. pt drinking water.
[2022-12-07] MEDS: LACTATED RINGERS 1000 ML 1,000 ML 100 ML IV (11:11)
[2022-12-07] MEDS: ONDANSETRON 2 MG/ML inj 4 MG IVP (11:12)
[2022-12-07] MEDS: PIPERACILLIN/TAZOBACTAM 3.375 GM in 0.9 % SODIUM CHLORIDE Mini-bag 100 ML IVPB ×2 (13:37→19:55)
--- NOTE | 2022-12-07 13:45 | ED.NURSE ---
pt has been sleeping well. easily arouses to voice. antibiotics infusing. pt up to bsc with assist. pt's sister here and at bedside. pt continues to have RUQ pain.
--- NOTE | 2022-12-07 14:15 | ED.NURSE ---
pt will transfer to room 261 via cart with belongings.
--- NOTE | 2022-12-07 14:20 | P.IMHP_ITS ---
Hospitalist- H&P: HPI History of Present Illness Date Seen: 12/07/22 Chief complaint: Abdominal Pain Narrative: Sofiya Torres is a 87 year old female with past medical history of CLL, COPD, Atrial fibrillation (on metoprolol, eliquis), Hypertension, hyponatremia who presented to the ED for evaluation of abdominal pain. She has had crampy intermittent abdominal pain. She denies nausea and vomiting. Denies chest pain. Denies adverse reaction to general anthesia. In the ED CT AP showed acute cholecystitis. Notable labs included WBc 15.8, Sodium 134, AST 44, ALT 33, Alk Phos 153. She was started on IVF, fentantyl, and zosyn. Her case was discussed with surgery and she was admitted for further evaluation. CT AP Acute cholecystitis. PMHx Atrial Fibrillation CLL COPD HTN CKD 3 CVA Venous stasis Hyponatremia Surgical History Surgical History Surgery Date Site/Laterality Comments APPENDECTOMY ? ? ? HYSTERECTOMY ? ? Total abdominal hysterectomy with removal of ovaries? Medical History Medical History Medical History Date Comments Pneumonia of right upper lobe due to infectious organism 01/11/2021 ? Family History Family History Medical History Relation Comments Diabetes Father ? Breast cancer Mother ? Cancer Mother ? Family History Relation Status Comments Father ? ? Mother ? ? Social History Social History Tobacco Use Types Packs/Day Years Used Date Smoking Tobacco: Former Cigarettes 2 40 Quit: 1994 Smokeless Tobacco: Never ? Social History Alcohol Use Standard Drinks/Week Comments Yes 0 (1 standard drink = 0.6 oz pure alcohol) social drinker Social History Sex Assigned at Date Recorded Not on file ? Review of Systems Status of ROS: Reports: 10 or more systems reviewed and unremarkable except as noted in History and below [facility] Social History Highest level of school completed/degree received: Bachelor's degree Smoking Status: Never smoker Do you use any of these nicotine containing products: None How often do you have a drink containing alcohol: never How often do you have six or more drinks on one occasion: Never AUDIT-C Alcohol total score: 0 Non-prescribed substance use: denies use Caffeine: Yes (1 cup of coffee/day) service: No Meds Home Medications and Allergies Home Medications Medication Instructions Recorded Confirmed Type apixaban 2.5 mg tablet (Eliquis) 2.5 mg PO BID 10/31/22 12/07/22 History aspirin 81 mg chewable tablet 81 mg PO DAILY 10/31/22 12/07/22 History (Aspirin Childrens) atorvastatin 80 mg tablet (Lipitor) 80 mg PO HS 10/31/22 12/07/22 History fluticasone fur. 100 mcg-umeclid 1 inh inhalation DAILY 10/31/22 12/07/22 Histor y 62.5 mcg-vilant 25 mcg inhalat.powder (Trelegy Ellipta) metoprolol tartrate 50 mg tablet 50 mg PO DAILY 10/31/22 12/07/22 History torsemide 10 mg tablet 10 mg PO DAILY 10/31/22 12/07/22 History albuterol sulfate 90 mcg/actuation 2 inh inhalation Q6H PRN 12/07/22 12/07/22 History breath activated powder inhaler calcium carbonate 400 mg calcium 400 mg PO DAILY 12/07/22 12/07/22 History (1,000 mg) chewable tablet (Tums Ultra) cholecalciferol (vitamin D3) 25 75 mcg PO DAILY 12/07/22 12/07/22 History mcg (1,000 unit) capsule diphenhydramine HCl 25 mg capsule 25 mg PO QHS PRN 12/07/22 12/07/22 History (Allergy Medication) multivitamin (Daily Multi-Vitamin 1 tab PO DAILY 12/07/22 12/07/22 History tablet) sennosides 8.6 mg-docusate sodium 1 tab-cap PO DAILY 12/07/22 12/07/22 History 50 mg tablet (Senna with Docusate Sodium) Allergies Allergy/AdvReac Type Severity Reaction Status Date / Time codeine Allergy Mild itchy Verified 10/31/22 13:06 morphine Allergy Mild itchy Verified 10/31/22 13:06 oxycodone Allergy Mild Gastrointestinal Verified 12/07/22 14:28 Upset Sulfa (Sulfonamide Allergy Mild rash Verified 10/31/22 13:06 Antibiotics) Exam Narrative: Exam Narrative: Gen: no acute distress HEENT: NCAT EOMI mmm Neck: Supple CV: RRR normal s1 s2 Lungs: CTAB Abd: mild tenderness no rebound or guarding Neuro: Alert, oriented, CN grossly intact; nonfocal screening?exam Psych: appropriate affect MSK: age appropriate muscle mass Skin; Warm, dry no rash on face EXT: 1+ bilateral lower extremity edema Const: Vital Signs, click to edit/add: Vital Signs - 24 hr 12/07/22 05:04 12/07/22 06:34 12/07/22 07:06 Temperature 97.6 F Pulse Rate Pulse Rate [Right Pulse Oximeter] 76 75 67 Respiratory Rate 20 18 16 Blood Pressure Blood Pressure [Le ft Upper Arm] 147/98 H 171/113 H 171/106 H Pulse Oximetry 96 98 92 Oxygen Delivery Me thod Room Air Room Air Room Air 12/07/22 07:30 12/07/22 08:35 12/07/22 08:36 Temperature Pulse Rate 101 H Pulse Rate [Right Pulse Oximeter] 79 Respiratory Rate Blood Pressure 165/80 H Blood Pressure [Le ft Upper Arm] 151/102 H Pulse Oximetry 96 92 [facility] 12/07/22 08:00 12/07/22 08:48 12/07/22 09:00 Temperature Pulse Rate 87 91 Pulse Rate [Right Pulse Oximeter] 89 Respiratory Rate Blood Pressure Blood Pressure [Le ft Upper Arm] 166/113 H Pulse Oximetry 95 96 93 [facility] 12/07/22 09:02 12/07/22 09:30 12/07/22 09:32 Temperature Pulse Rate 93 81 84 Pulse Rate [Right Pulse Oximeter] Respiratory Rate Blood Pressure 154/94 H 173/94 H Blood Pressure [Le ft Upper Arm] Pulse Oximetry 96 94 94 Oxygen Delivery Pa thod 12/07/22 10:00 12/07/22 10:02 12/07/22 10:30 Temperature Pulse Rate 84 90 83 Pulse Rate [Right Pulse Oximeter] Respiratory Rate Blood Pressure 176/104 H Blood Pressure [Le ft Upper Arm] Pulse Oximetry 94 94 94 [facility] 12/07/22 10:32 12/07/22 10:33 12/07/22 11:00 Temperature Pulse Rate 85 87 91 Pulse Rate [Right Pulse Oximeter] Respiratory Rate Blood Pressure 171/103 H Blood Pressure [Le ft Upper Arm] Pulse Oximetry 94 94 94 Oxygen Delivery Pa thod 12/07/22 11:02 12/07/22 11:03 12/07/22 11:30 Temperature Pulse Rate 98 86 78 Pulse Rate [Right Pulse Oximeter] Respiratory Rate Blood Pressure 131/71 Blood Pressure [Le ft Upper Arm] Pulse Oximetry 87 L 94 91 [facility] 12/07/22 11:32 12/07/22 12:00 12/07/22 12:02 Temperature Pulse Rate 82 76 77 Pulse Rate [Right Pulse Oximeter] Respiratory Rate Blood Pressure 124/75 126/79 Blood Pressure [Le ft Upper Arm] Pulse Oximetry 91 91 92 [facility] 12/07/22 12:30 12/07/22 12:32 12/07/22 13:00 Temperature Pulse Rate 79 85 92 Pulse Rate [Right Pulse Oximeter] Respiratory Rate Blood Pressure 133/81 Blood Pressure [Le ft Upper Arm] Pulse Oximetry 92 91 91 [facility] 12/07/22 13:02 12/07/22 13:03 12/07/22 13:30 Temperature Pulse Rate 85 91 81 Pulse Rate [Right Pulse Oximeter] Respiratory Rate Blood Pressure 150/82 H Blood Pressure [Le ft Upper Arm] Pulse Oximetry 91 91 94 [facility] 12/07/22 13:32 12/07/22 14:03 12/07/22 14:04 Temperature Pulse Rate 89 87 Pulse Rate [Right Pulse Oximeter] Respiratory Rate Blood Pressure 136/71 103/86 Blood Pressure [Le ft Upper Arm] Pulse Oximetry 93 94 [facility] - H&P: Result Labs Labs: Short CBC 12/07/22 Range/Units 05:56 WBC 15.78 H (4.50-11.00) K/uL Hgb 12.1 (12.0-16.0) gm/dL Hct 36.9 (33.0-51.0) % Plt Count 290 (140-440) K/uL [facility] 12/07/22 05:56 Sodium 134 L Potassium 4.3 Chloride 103 Carbon Dioxide 25 BUN 24 Creatinine 0.9 Glucose 133 H Calcium 8.9 Liver Function 12/07/22 Range/Units 05:56 Total Bilirubin 0.8 (0.1-1.5) mg/dL Direct Bilirubin 0.3 (0.0-0.5) mg/dL AST 44 H (12-35) U/L ALT 33 (4-35) U/L Alkaline Phosphatase 153 H (40-150) U/L Albumin 3.8 (3.3-5.0) g/dL Urine 12/07/22 Range/Units 07:20 Urine Color Yellow (Yellow) Urine Appearance Clear (Clear) Urine pH 6.0 (5.0-8.5) Ur Specific [place] 1.015 (1.000-1.030) Urine Protein Negative (Negative) Urine Glucose (UA) Negative (Negative) Assessment and Plan Assessment and plan (1) Acute cholecystitis: Status: Acute (2) Atrial fibrillation: Status: Acute (3) COPD (chronic obstructive pulmonary disease): Status: Acute (4) HTN (hypertension): Status: Acute (5) CLL (chronic lymphocytic leukemia): Status: Acute (6) CVA (cerebral vascular accident): Status: Acute Plan Sofiya Torres is a 87 year old female with past medical history of CLL, COPD, Atrial fibrillation (on metoprolol, eliquis), Hypertension, hyponatremia who pre sented to the ED for evaluation of abdominal pain. In the ED CT AP showed acute cholecystitis. Notable labs included WBc 15.8, Sodium 134, AST 44, ALT 33, Alk Phos 153. She was started on IVF, fentantyl, and zosyn. Her case was discussed with surgery and she was admitted for further evaluation. 1. Acute cholecystitis 2. Hx of chronic Atrial Fibrillation 3. Hx of CLL 4. Hx of COPD 5. Hx of HTN 6. Hx of CKD 3 7. Hx of CVA 8. Hx of Venous stasis 9. Hx of Hyponatremia Plan -admit to inpatient -Preop evaluation: EKG, UA -continue zosyn -RUQ US -follow LFTs -NPO midnight -surgery consult -continue metoprolol; give dose today -continue TRAFFIC INVESTIGATOR inhalers, prn nebs -hold statin -hold aspirin -hold eliquis -hold torsemide Code-Full DVT ppx-SCD
[2022-12-07] MEDS: IPRAT-ALBUT 0.5-2.5 MG/3 ML NEB 1 NEB IH (15:07)
[2022-12-07] MEDS: METOPROLOL TARTRATE 50 MG TABLET PO (15:07)
[2022-12-07] MEDS: HYDROmorphone 0.5 mg/0.5 ml inj IVP ×2 (15:21→23:56)
[2022-12-07] MEDS: 5 % DEXTROSE IN LAC RINGER'S 1,000 ML 75 ML IV (15:22)
[2022-12-07] MEDS: SODIUM CHLORIDE 0.9 % (FLUSH) 10 ML SYRINGE 5 ML IVF (19:56)
[2022-12-08] MEDS: PIPERACILLIN/TAZOBACTAM 3.375 GM in 0.9 % SODIUM CHLORIDE Mini-bag 100 ML IVPB ×4 (01:29→22:39)
[2022-12-08 03:00] VITALS: BP 118/61; PULSE 80; RESP 20; TEMP 36.8; O2SAT 92
[2022-12-08] MEDS: METOPROLOL TARTRATE 50 MG TABLET PO (06:11)
[2022-12-08] MEDS: Fluticasone-Umeclidin-Vilanter [Trelegy Ellipta] 1 EACH IH (06:15)
--- NOTE | 2022-12-08 06:24 | PC.NURSE ---
Shift note: Pt still complained of abdominal pain and right upper quadrant tenderness. A1 with GB to bed side commode. No BM this shift. Right antecubital IV got infiltrated at 0555. Attempt to insert new one failed. New IV inserted at 0630. NPO status maintained for possible surgery today.
[2022-12-08] MEDS: 5 % DEXTROSE IN LAC RINGER'S 1,000 ML 75 ML IV ×2 (06:29→21:57)
[2022-12-08] MEDS: HYDROmorphone 0.5 mg/0.5 ml inj IVP ×5 (06:37→20:45)
[2022-12-08 07:18] LABS: Eosinophils Percent Auto 0.2 % (0.0-7.0); Hematocrit 41.9 % (33.0-51.0); Hemoglobin* 13.6 gm/dL (12.0-16.0); Immature Granulocytes Pct Auto 0.7 %; Lymphocytes Percent Auto 7.6 % (20-44); Mean Corpuscular HGB Conc 33 gm/dL (32-36); Mean Corpuscular Hemoglobin 28 pg (26-34); Mean Corpuscular Volume 86 fL (80-100); Neutrophils Percent Auto 84.5 % (42.0-72.0); Platelet Count* 276 K/uL (140-440); RDW Coefficient of Variation % 14.8 % (11.5-15.5); Red Blood Count 4.86 m/uL (4.00-5.20)
[2022-12-08 07:37] LABS: Albumin* 3.8 g/dL (3.3-5.0)
[2022-12-08 07:38] LABS: Chloride* 102 mmol/L (96-114); Potassium* 4.4 mmol/L (3.6-5.1); Sodium* 133 mmol/L (135-149)
[2022-12-08 07:40] LABS: Creatinine* 0.9 mg/dL (0.5-1.5); Est. Creatinine Clearance* 35.52; Estimated Glomerular Filt Rate 63 ml/min
[2022-12-08 07:41] LABS: Alanine Aminotransferase* 37 U/L (4-35); Alkaline Phosphatase* 127 U/L (40-150); Aspartate Amino Transferase* 52 U/L (12-35); Bilirubin Direct* 0.5 mg/dL (0.0-0.5); Bilirubin Total* 1.5 mg/dL (0.1-1.5); Blood Urea Nitrogen* 20 mg/dL (7-30); Calcium* 8.3 mg/dL (8.4-10.6); Carbon Dioxide* 24 mmol/L (20-32); Glucose* 91 mg/dL (60-115); Total Protein* 6.8 g/dL (6.0-8.3)
[2022-12-08 07:45] VITALS: BP 106/63; PULSE 77; RESP 20; TEMP 37.2; O2SAT 92
[2022-12-08 07:45] LABS: INR 1.57 (0.91-1.10); Prothrombin Time 19.6 Seconds
--- NOTE | 2022-12-08 07:47 | PM.IMPN1 ---
Progress Note: A&P Assessment and plan (1) Acute cholecystitis: Problem details: -on zosyn; to the OR later today (12/08/22) -trending leukocytosis, inflammatory markers. Lipase and bilirubin normal. Status: Acute (2) Atrial fibrillation: Problem details: -rate controlled; holding eliquis. Last dose was p.m. of 10/06. -last dose of aspirin a.m. of 10/06 Status: Acute (3) COPD (chronic obstructive pulmonary disease): Problem details: -on room air Status: Acute (4) HTN (hypertension): Status: Acute (5) CLL (chronic lymphocytic leukemia): Problem details: Under surveillance only. Has been reassured by Oncology in recent visits. Status: Acute Subjective Date Seen: 12/08/22 Interval history: Daily Progress Note - Hospital Medicine #: 2 CC: Acute cholecystitis, history of recent stroke OVERNIGHT UPDATES FROM STAFF & MED, LAB, IMAGING UPDATES 87-year-old Sofiya was admitted yesterday with acute cholecystitis. She presented to the ER with abdominal pain. Please see the H&P for further detail. Overnight her pain has been fairly well managed. She is coherent this morning. She has pain worse with any ambulation and with deep breathing. As she lies still she says it is fairly manageable. Her mouth is dry. She is using some ice chips for comfort. Afebrile Blood pressure 106/63, 118/61 pulse 80s Pulse ox 92% on room air Weight is 96 kilos CBC reflects an up trending white blood cell count, 15.8-25.5 - her inflammatory marker, CRP, has up trended from 0.5-8.1. Hemoglobin is stable Platelet count is stable INR is 1.57 (PATIENT IS ON ELIQUIS, LAST DOSE P.M. OF 12/06) Sodium is stable at 133. The rest of her electrolytes are unremarkable. Her renal function is normal. Her glucose is 91. Her LFTs are still abnormal. However, her total bilirubin has remained normal. Lipase is normal. CT abdomen pelvis from yesterday Gallbladder distention measuring up to 5.1 cm, with pericholecystic fat stranding seen. Small amount of high density material seen within the gallbladder on image 71, series 2. Trace/mild intrahepatic biliary ductal dilatation. The common bile duct appears normal in size. Duodenal diverticulum is present. No pancreatic ductal dilatation. Review of Systems: See subjective Cardiac: No new chest pain/pressure/palpitations. Respiratory: no new dyspnea. GI: No abdominal bloating Objective: Vitals: see above Lungs: Clear. Cardiac: S1S2. Abdomen: Moderately obese. No rebound. Generally tender mid epigastric and right upper quadrant. Disposition/Potential discharge - Patient is currently living with her daughter, Manuela, here in [place]. Her residence is in [facility]. Manuela and the patient's sister, Abbey, our emergency contacts. Total time is 35 minutes with greater than 50% spent in counseling and coordination of care. Exam Const: Vital Signs, click to edit/add: Vital Signs - 24 hr 12/07/22 08:35 12/07/22 08:36 12/07/22 08:00 Temperature Pulse Rate 101 H Pulse Rate [Left R adial] Pulse Rate [Right Pulse Oximeter] 89 Respiratory Rate Blood Pressure 165/80 H Blood Pressure [Le ft Arm] Blood Pressure [Le ft Upper Arm] 166/113 H Pulse Oximetry 92 [facility] 12/07/22 08:48 12/07/22 09:00 12/07/22 09:02 Temperature Pulse Rate 87 91 93 Pulse Rate [Left R adial] Pulse Rate [Right Pulse Oximeter] Respiratory Rate Blood Pressure 154/94 H Blood Pressure [Le ft Arm] Blood Pressure [Le ft Upper Arm] Pulse Oximetry 96 93 96 [facility] 12/07/22 09:30 12/07/22 09:32 12/07/22 10:00 Temperature Pulse Rate 81 84 84 Pulse Rate [Left R adial] Pulse Rate [Right Pulse Oximeter] Respiratory Rate Blood Pressure 173/94 H Blood Pressure [Le ft Arm] Blood Pressure [Le ft Upper Arm] Pulse Oximetry 94 94 94 [facility] 12/07/22 10:02 12/07/22 10:30 12/07/22 10:32 Temperature Pulse Rate 90 83 85 Pulse Rate [Left R adial] Pulse Rate [Right Pulse Oximeter] Respiratory Rate Blood Pressure 176/104 H 171/103 H Blood Pressure [Le ft Arm] Blood Pressure [Le ft Upper Arm] Pulse Oximetry 94 94 94 [facility] 12/07/22 10:33 12/07/22 11:00 12/07/22 11:02 Temperature Pulse Rate 87 91 98 Pulse Rate [Left R adial] Pulse Rate [Right Pulse Oximeter] Respiratory Rate Blood Pressure 131/71 Blood Pressure [Le ft Arm] Blood Pressure [Le ft Upper Arm] Pulse Oximetry 94 94 87 L [facility] 12/07/22 11:03 12/07/22 11:30 12/07/22 11:32 Temperature Pulse Rate 86 78 82 Pulse Rate [Left R adial] Pulse Rate [Right Pulse Oximeter] Respiratory Rate Blood Pressure 124/75 Blood Pressure [Le ft Arm] Blood Pressure [Le ft Upper Arm] Pulse Oximetry 94 91 91 [facility] 12/07/22 12:00 12/07/22 12:02 12/07/22 12:30 Temperature Pulse Rate 76 77 79 Pulse Rate [Left R adial] Pulse Rate [Right Pulse Oximeter] Respiratory Rate Blood Pressure 126/79 Blood Pressure [Le ft Arm] Blood Pressure [Le ft Upper Arm] Pulse Oximetry 91 92 92 Oxygen Delivery [facility] 12/07/22 12:32 12/07/22 13:00 12/07/22 13:02 Temperature Pulse Rate 85 92 85 Pulse Rate [Left R adial] Pulse Rate [Right Pulse Oximeter] Respiratory Rate Blood Pressure 133/81 150/82 H Blood Pressure [Le ft Arm] Blood Pressure [Le ft Upper Arm] Pulse Oximetry 91 91 91 [facility] 12/07/22 13:03 12/07/22 13:30 12/07/22 13:32 Temperature Pulse Rate 91 81 89 Pulse Rate [Left R adial] Pulse Rate [Right Pulse Oximeter] Respiratory Rate Blood Pressure 136/71 Blood Pressure [Le ft Arm] Blood Pressure [Le ft Upper Arm] Pulse Oximetry 91 94 93 [facility] 12/07/22 14:03 12/07/22 14:04 12/07/22 14:27 Temperature 98.5 F Pulse Rate 87 Pulse Rate [Left R adial] 66 Pulse Rate [Right Pulse Oximeter] Respiratory Rate 20 Blood Pressure 103/86 Blood Pressure [Le ft Arm] 134/83 Blood Pressure [Le ft Upper Arm] Pulse Oximetry 94 94 Oxygen Delivery [facility] Room Air 12/07/22 15:30 12/07/22 15:30 12/07/22 19:00 Temperature 98.5 F 98.2 F Pulse Rate Pulse Rate [Left R adial] 80 70 Pulse Rate [Right Pulse Oximeter] Respiratory Rate 18 18 20 Blood Pressure Blood Pressure [Le ft Arm] 134/83 109/83 Blood Pressure [Le ft Upper Arm] Pulse Oximetry 92 92 92 Oxygen Delivery Me thod Room Air Room Air Room Air 12/07/22 23:00 12/07/22 23:00 12/08/22 03:00 Temperature 99.3 F 98.2 F Pulse Rate Pulse Rate [Left R adial] 77 77 80 Pulse Rate [Right Pulse Oximeter] Respiratory Rate 20 20 20 Blood Pressure Blood Pressure [Le ft Arm] 111/66 118/61 Blood Pressure [Le ft Upper Arm] Pulse Oximetry 95 92 Oxygen Delivery Me thod Room Air Room Air Labs Labs: Laboratory Results - last 24 hr 12/07/22 12/07/22 12/07/22 05:56 07:20 09:09 INR 1.22 H APTT 34 H Sodium Potassium Chloride Carbon Dioxide BUN Creatinine Estimated Creat Clear Estimated GFR Glucose Calcium Total Bilirubin Direct Bilirubin AST ALT Alkaline Phosphatase Total Protein Albumin Urine Color Yellow Urine Appearance Clear Urine pH 6.0 Ur Specific [place] 1.015 Urine Protein Negative Urine Glucose (UA) Negative Urine Ketones 1+ A Urine Blood Trace-intact A Urine Nitrite Negative Urine Bilirubin Negative Urine Urobilinogen 0.2 Ur Leukocyte Esterase Negative Urine RBC 0-2 Urine WBC 0-2 Ur Squamous Epith Cells None Urine Bacteria Few A SARS-CoV-2 (PCR) Negative SARS-CoV-2 12/08/22 12/08/22 06:24 06:24 INR 1.57 H APTT Sodium 133 L Potassium 4.4 Chloride 102 Carbon Dioxide 24 BUN 20 Creatinine 0.9 Estimated Creat Clear 35.52 Estimated GFR 63 Glucose 91 Calcium 8.3 L Total Bilirubin 1.5 Direct Bilirubin 0.5 AST 52 H ALT 37 H Alkaline Phosphatase 127 Total Protein 6.8 Albumin 3.8 Urine Color Urine Appearance Urine pH Ur Specific [place] Urine Protein Urine Glucose (UA) Urine Ketones Urine Blood Urine Nitrite Urine Bilirubin Urine Urobilinogen Ur Leukocyte Esterase Urine RBC Urine WBC Ur Squamous Epith Cells Urine Bacteria SARS-CoV-2 (PCR)
[2022-12-08 07:56] LABS: Slide Review Acceptable Review (Acceptable); Slide Review Reflex Yes; White Blood Count* 25.48 K/uL (4.50-11.00)
[2022-12-08 08:11] LABS: C Reactive Protein* 8.1 mg/dL (0.5-1.0)
[2022-12-08 11:00] VITALS: BP 118/60; PULSE 82; RESP 20; TEMP 36.9; O2SAT 94
[2022-12-08] MEDS: SODIUM CHLORIDE 0.9 % (FLUSH) 10 ML SYRINGE 5 ML IVF ×2 (11:39→17:36)
--- NOTE | 2022-12-08 13:24 | PC.NURSE ---
Pt remains NPO for removal of gall bladder secondary to cholecystitis this afternoon @ 4:30 pm. Surgical paperwork initiated on front of chart. Teaching with pt and her sister Oralia by primary RN and Dr. Meraz. RUQ pain treated with IV Dilaudid 0.5 mg prn. Pt VS are unremarkable, Sofiya is calm/cooperative. Sleeping between nsg interventions. IV Zosyn infused w/o difficulty, maintenance fluids continue at 75 cc/hr. Up with GB and walker to BSC, 150cc out in clear yellow urine.
--- NOTE | 2022-12-08 13:43 | PM.GSCN ---
History of Present Illness Consult details Date Seen: 12/08/22 Consult date: 12/08/22 Narrative: Patient is an 87-year-old female, who presented the emergency department with persistent right upper quadrant abdominal pain. The pain started on Thursday and has persisted. She has never had pain like this before. Initially she thought she may be constipated, however the pain persisted despite having a bowel movement. She denies any nausea or vomiting. No fevers. Her abdominal surgical history is positive for hysterectomy and appendectomy. She is on Eliquis for atrial fibrillation, which she last took Thursday evening. 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 She lives in [place], but is currently staying with her daughter here in [place]. Review of Systems Status of ROS: Reports: 6 or more systems reviewed and unremarkable except as noted in History and below [facility] Medical History (Updated 12/08/22 @ 11:19 by Manuela Meraz MD) Atrial fibrillation CLL (chronic lymphocytic leukemia) COPD (chronic obstructive pulmonary disease) CVA (cerebral vascular accident) HTN (hypertension) Surgical History (Updated 12/08/22 @ 07:49 by Manuela Meraz MD) Hx of appendectomy Hx of total hysterectomy with removal of both tubes and ovaries Social History (Updated 12/08/22 @ 11:18 by Manuela Meraz MD) Narrative: in July of 2022. Lives in [facility]. Has family in [place] and here in [place]. Daughter Manuela and sister Abbey are her emergency contacts. Cellphone 4 Abbey is phone #[phone]. Highest level of school completed/degree received: Bachelor's degree Smoking Status: Never smoker Do you use any of these nicotine containing products: None How often do you have a drink containing alcohol: never How often do you have six or more drinks on one occasion: Never AUDIT-C Alcohol total score: 0 Non-prescribed substance use: denies use Caffeine: Yes (1 cup of coffee/day) service: No Meds Home Medications and Allergies Home Medications Medication Instructions Recorded Confirmed Type apixaban 2.5 mg tablet (Eliquis) 2.5 mg PO BID 10/31/22 12/07/22 History aspirin 81 mg chewable tablet 81 mg PO DAILY 10/31/22 12/07/22 History (Aspirin Childrens) atorvastatin 80 mg tablet (Lipitor) 80 mg PO HS 10/31/22 12/07/22 History fluticasone fur. 100 mcg-umeclid 1 inh inhalation DAILY 10/31/22 12/07/22 History 62.5 mcg-vilant 25 mcg inhalat.powder (Trelegy Ellipta) metoprolol tartrate 50 mg tablet 50 mg PO DAILY 10/31/22 12/07/22 History torsemide 10 mg tablet 10 mg PO DAILY 10/31/22 12/07/22 History albuterol sulfate 90 mcg/actuation 2 inh inhalation Q6H PRN 12/07/22 12/07/22 History breath activated powder inhaler calcium carbonate 400 mg calcium 400 mg PO DAILY 12/07/22 12/07/22 History (1,000 mg) chewable tablet (Tums Ultra) cholecalciferol (vitamin D3) 25 75 mcg PO DAILY 12/07/22 12/07/22 History mcg (1,000 unit) capsule diphenhydramine HCl 25 mg capsule 25 mg PO QHS PRN 12/07/22 12/07/22 History (Allergy Medication) multivitamin (Daily Multi-Vitamin 1 tab PO DAILY 12/07/22 12/07/22 History tablet) sennosides 8.6 mg-docusate sodium 1 tab-cap PO DAILY 12/07/22 12/07/22 History 50 mg tablet (Senna with Docusate Sodium) Allergies Allergy/AdvReac Type Severity Reaction Status Date / Time codeine Allergy Mild itchy Verified 10/31/22 13:06 morphine Allergy Mild itchy Verified 10/31/22 13:06 oxycodone Allergy Mild Gastrointestinal Verified 12/07/22 14:28 Upset Sulfa (Sulfonamide Allergy Mild rash Verified 10/31/22 13:06 Antibiotics) Exam Narrative: Exam Narrative: General: Alert and oriented, no acute distress. Nontoxic in appearance. Respiratory: Equal breath rise bilaterally, maintained on room air CV irregularly irregular, regular rate Abdomen: Lower midline incision well healed. Abdomen is soft, nondistended. Tender to palpation right upper quadrant with positive Duke sign. Const: Vital Signs, click to edit/add: Vital Signs - 24 hr 12/07/22 14:03 12/07/22 14:04 12/07/22 14:27 Temperature 98.5 F Pulse Rate 87 Pulse Rate [Left R adial] 66 Respiratory Rate 20 Blood Pressure 103/86 Blood Pressure [Le ft Arm] 134/83 Pulse Oximetry 94 94 Oxygen Delivery Ut thod Room Air 12/07/22 15:30 12/07/22 15:30 12/07/22 19:00 Temperature 98.5 F 98.2 F Pulse Rate Pulse Rate [Left R adial] 80 70 Respiratory Rate 18 18 20 Blood Pressure Blood Pressure [Le ft Arm] 134/83 109/83 Pulse Oximetry 92 92 92 Oxygen Delivery Ut thod Room Air Room Air Room Air 12/07/22 23:00 12/07/22 23:00 12/08/22 03:00 Temperature 99.3 F 98.2 F Pulse Rate Pulse Rate [Left R adial] 77 77 80 Respiratory Rate 20 20 20 Blood Pressure Blood Pressure [Le ft Arm] 111/66 118/61 Pulse Oximetry 95 92 Oxygen Delivery Ut thod Room Air Room Air 12/08/22 07:45 12/08/22 11:00 Temperature 98.9 F 98.4 F Pulse Rate Pulse Rate [Left R adial] 77 82 Respiratory Rate 20 20 Blood Pressure Blood Pressure [Le ft Arm] 106/63 118/60 Pulse Oximetry 92 94 Oxygen Delivery Ut thod Room Air Room Air Results Labs Labs: Abnormal lab results 12/08/22 12/08/22 12/08/22 Range/Units 06:24 06:24 06:24 WBC 25.48 H* (4.50-11.00) K/uL Neut % (Auto) 84.5 H (42.0-72.0) % Lymph % (Auto) 7.6 L (20-44) % Neut # (Auto) 21.50 H (1.7-7.0) K/uL [place] # (Auto) 1.80 H (0.00-0.90) K/UL INR 1.57 H (0.91-1.10) Sodium 133 L (135-149) mmol/L Calcium 8.3 L (8.4-10.6) mg/dL AST 52 H (12-35) U/L ALT 37 H (4-35) U/L C-Reactive Protein 8.1 H (0.5-1.0) mg/dL Diabetes panel 12/08/22 Range/Units 06:24 Sodium 133 L (135-149) mmol/L Potassium 4.4 (3.6-5.1) mmol/L Chloride 102 (96-114) mmol/L Carbon Dioxide 24 (20-32) mmol/L BUN 20 (7-30) mg/dL Creatinine 0.9 (0.5-1.5) mg/dL Glucose 91 (60-115) mg/dL Calcium 8.3 L (8.4-10.6) mg/dL AST 52 H (12-35) U/L ALT 37 H (4-35) U/L Alkaline Phosphatase 127 (40-150) U/L Total Protein 6.8 (6.0-8.3) g/dL Albumin 3.8 (3.3-5.0) g/dL Calcium panel 12/08/22 Range/Units 06:24 Calcium 8.3 L (8.4-10.6) mg/dL Albumin 3.8 (3.3-5.0) g/dL Pituitary panel 12/08/22 Range/Units 06:24 Sodium 133 L (135-149) mmol/L Potassium 4.4 (3.6-5.1) mmol/L Chloride 102 (96-114) mmol/L Carbon Dioxide 24 (20-32) mmol/L BUN 20 (7-30) mg/dL Creatinine 0.9 (0.5-1.5) mg/dL Glucose 91 (60-115) mg/dL Calcium 8.3 L (8.4-10.6) mg/dL Adrenal panel 12/08/22 Range/Units 06:24 Sodium 133 L (135-149) mmol/L Potassium 4.4 (3.6-5.1) mmol/L Chloride 102 (96-114) mmol/L Carbon Dioxide 24 (20-32) mmol/L BUN 20 (7-30) mg/dL Creatinine 0.9 (0.5-1.5) mg/dL Glucose 91 (60-115) mg/dL Calcium 8.3 L (8.4-10.6) mg/dL Total Bilirubin 1.5 (0.1-1.5) mg/dL AST 52 H (12-35) U/L ALT 37 H (4-35) U/L Alkaline Phosphatase 127 (40-150) U/L Total Protein 6.8 (6.0-8.3) g/dL Albumin 3.8 (3.3-5.0) g/dL All other labs normal. Imaging Abdomen CT scan report/results: report reviewed and image reviewed Assessment and Plan Assessment and plan (1) Acute cholecystitis: Problem comment: -on zosyn; to the OR later today (12/08/22) -trending leukocytosis, inflammatory markers. Lipase and bilirubin normal. Status: Acute Plan Patient is an 87-year-old female with clinical history and workup consistent with acute cholecystitis. Vital signs stable and afebrile since admission. Her CT scan did demonstrated distended gallbladder with associated gayatri cholecystic inflammation. Her clinical exam is consistent with acute cholecystitis with tenderness in the right upper quadrant. Her LFTs have been within normal limits. WBC is elevated and increased when compared to yesterday (15--25). Patient does have significant comorbidities, including a recent CVA and being on anticoagulation secondary to atrial fibrillation. Her Eliquis has been held for greater than 24 hours. She has been evaluated by the hospitalist, who advised that she is medically optimized to proceed to the operating room. I had a detailed conversation with the patient regarding the diagnosis of acute cholecystitis. We discussed the treatment options including observation with diet modification and laparoscopic cholecystectomy. We discussed the risks of surgery (including but not limited to) the risks of bleeding, infection, injury to other structures in the abdomen including bile duct injury, bile leak and conversion to an open operation. We discussed the possibility that the patient's pain not improve with surgery. We discussed the possibility of permanent post-operative diarrhea that may require medical management. Additionally, the conceivably of complications requiring additional surgery or further hospitalization were also discussed including the risks of NM, respiratory failure, stroke and blood clots. The patient voiced an understanding of our conversation, had the opportunity to ask questions, agreed to accept the risks of surgery and asked that we proceed with surgery. -OR for laparoscopic cholecystectomy
--- NOTE | 2022-12-08 14:37 | PC.NURSE ---
Pre-op check list initiated with assistance of pt and her sister Oralia. Both are [employer] [employer]. Dr. Cisneros had them sign the operative permit. Dilaudid 0.5 given for pain 7 of 10 w/movement, 9 of 10 with coughing per pt report this afternoon. Report will be given to oncoming shift RN.
[2022-12-08 16:30] VITALS: BP 107/65; PULSE 77; RESP 16; TEMP 36.8; O2SAT 94
[2022-12-08 19:05] VITALS: BP 118/65; PULSE 97; RESP 18; TEMP 37.2; O2SAT 95
--- NOTE | 2022-12-08 22:57 | PC.NURSE ---
Addendum entered by Tess Keith RN 12/08/22 23:36: MD contacted due to oliguria- see charting for values. orders bladder scan to check for retaining. No further orders Original Note: Shift [id number]- Patient states pain at rest is minimal, but it is 7-9/10 with exertion or coughing. PRN pain medication administered with relief- see eMAR. She states tonight that the antibiotics must be helping because her pain is less than it was earlier. She remains NPO, IV patent. She uses bedside commode with SBA. She is [place]. Sx planned for tomorrow. Demetra, granddaughter, updated.
[2022-12-08 23:00] VITALS: BP 132/86; PULSE 84; RESP 20; TEMP 37.1; O2SAT 95
[2022-12-09] VITALS (19 sets, daily range): BP systolic 94–146; BP diastolic 28–87; PULSE 73–111; RESP 10–20; TEMP 35.8–37.4; O2SAT 91–100
[2022-12-09] MEDS: HYDROmorphone 0.5 mg/0.5 ml inj IVP ×8 (02:11→23:03)
[2022-12-09] MEDS: SODIUM CHLORIDE 0.9 % (FLUSH) 10 ML SYRINGE 5 ML IVF ×5 (02:12→19:58)
[2022-12-09] MEDS: PIPERACILLIN/TAZOBACTAM 3.375 GM in 0.9 % SODIUM CHLORIDE Mini-bag 100 ML IVPB ×4 (04:13→22:16)
[2022-12-09] MEDS: IPRAT-ALBUT 0.5-2.5 MG/3 ML NEB 1 NEB IH (04:57)
[2022-12-09] MEDS: METOPROLOL TARTRATE 50 MG TABLET PO (05:22)
[2022-12-09] MEDS: Fluticasone-Umeclidin-Vilanter [Trelegy Ellipta] 1 EACH IH (05:22)
--- NOTE | 2022-12-09 05:55 | PC.NURSE ---
[id number] Pt uncomfortable during night, some relief with prn pain medications, states she has no pain at rest, increases with coughing and movement. BM x1, watery, NPO with ice chips at bedside. hypoactive bowel sounds. denies chest pain, acknowledged SOB but states this is baseline for her.
[2022-12-09 06:29] LABS: HCO3 VBG 25 mmol/L (21-28); Ionized Calcium* 1.01 mmol/L (1.11-1.30); PCO2 VBG 47 mmHG (40-50); PO2 VBG 29.6 mmHG (25-47); pH VBG 7.332 (7.32-7.43)
[2022-12-09 06:40] LABS: Basophils Percent Auto 0.1 % (0.0-3.0); Eosinophils Percent Auto 0.2 % (0.0-7.0); Hematocrit 39.4 % (33.0-51.0); Hemoglobin* 12.7 gm/dL (12.0-16.0); Immature Granulocytes Pct Auto 0.9 %; Lymphocytes Percent Auto 8.7 % (20-44); Mean Corpuscular HGB Conc 32 gm/dL (32-36); Mean Corpuscular Hemoglobin 28 pg (26-34); Mean Corpuscular Volume 87 fL (80-100); Monocytes Percent Auto 7.1 % (0.0-11.0); Platelet Count* 285 K/uL (140-440); RDW Coefficient of Variation % 14.8 % (11.5-15.5); Red Blood Count 4.53 m/uL (4.00-5.20)
[2022-12-09 06:52] LABS: Albumin* 3.5 g/dL (3.3-5.0); Chloride* 104 mmol/L (96-114)
[2022-12-09 06:53] LABS: Potassium* 3.7 mmol/L (3.6-5.1); Sodium* 133 mmol/L (135-149)
[2022-12-09 06:55] LABS: Creatinine* 0.9 mg/dL (0.5-1.5); Est. Creatinine Clearance* 35.52; Estimated Glomerular Filt Rate 63 ml/min
[2022-12-09 06:56] LABS: Alanine Aminotransferase* 31 U/L (4-35); Alkaline Phosphatase* 131 U/L (40-150); Aspartate Amino Transferase* 38 U/L (12-35); Blood Urea Nitrogen* 19 mg/dL (7-30); Calcium* 7.9 mg/dL (8.4-10.6); Carbon Dioxide* 23 mmol/L (20-32); Glucose* 126 mg/dL (60-115); Lipase* 32 U/L (23-300); Total Protein* 6.6 g/dL (6.0-8.3)
[2022-12-09 06:57] LABS: Magnesium* 1.9 mg/dL (1.5-2.6)
[2022-12-09 07:35] LABS: Slide Review Reflex Yes; White Blood Count* 32.16 K/uL (4.50-11.00)
[2022-12-09 07:36] LABS: Slide Review Acceptable Review (Acceptable)
[2022-12-09 07:37] LABS: Bilirubin Direct* 0.7 mg/dL (0.0-0.5)
[2022-12-09 07:41] LABS: C Reactive Protein* 4.7 mg/dL (0.5-1.0)
--- NOTE | 2022-12-09 07:43 | PM.IMPN1 ---
Progress Note: A&P Assessment and plan (1) Acute cholecystitis: Problem details: -on zosyn; to the OR 12/09/2022 -trending leukocytosis, inflammatory markers. Status: Acute (2) Atrial fibrillation: Problem details: -rate controlled; holding eliquis. Last dose was p.m. of 10/06. -last dose of aspirin a.m. of 10/06 Patient is typically on home furosemide. Unclear why this was held at admission. We will place a Fregoso catheter this morning and give her some IV Lasix to alleviate some of the pedal edema we are seeing and shortness of breath. Also I am sure 3rd spacing is coming postop. Status: Acute (3) COPD (chronic obstructive pulmonary disease): Problem details: -on room air Status: Acute (4) HTN (hypertension): Status: Acute Subjective Date Seen: 12/09/22 Interval history: Daily Progress Note - Hospital Medicine Day #: 3 CC: Acute cholecystitis, history of recent stroke OVERNIGHT UPDATES FROM STAFF & MED, LAB, IMAGING UPDATES Overnight patient continued to have mild to moderate abdominal pain. This was relieved by IV Dilaudid. Dosing of Dilaudid overnight was every 1-4 hours. She is still on fluids, 75 mL of LR per hour. She has been without her home torsemide now for 3 days. While still on room air she is a little more short of breath. Were going to place a Fregoso this morning and start some IV Lasix. Labs reflect continued climbing leukocytosis, WBC 32 K. Hemoglobin stable, platelet count stable PH this morning 7.3 Sodium stable, creatinine stable, GFR 63. Glucose 126. Ionized calcium 1.01- WILL REPLACE WITH CALCIUM GLUCONATE Magnesium normal. LFTs are down trending. Total bilirubin is up just mildly to 1.6 C reactive protein is down trending Procalcitonin reassuring No micro pending T-max 99.3? F 146/84, 132/86 Pulse rate 103 Respiratory rate 18 Pulse ox 94% on RA Weight 96.2 kilos Hydromorphone: 0626 half a mg 0530 half a mg 0200 half a mg 845pm half a mg 445pm half a mg Continues on Zosyn INR is 1.57 on 12/08 (PATIENT IS ON ELIQUIS, LAST DOSE P.M. OF 12/06) From Admission CT abdomen pelvis from yesterday Gallbladder distention measuring up to 5.1 cm, with pericholecystic fat stranding seen. Small amount of high density material seen within the gallbladder on image 71, series 2. Trace/mild intrahepatic biliary ductal dilatation. The common bile duct appears normal in size. Duodenal diverticulum is present. No pancreatic ductal dilatation. Objective: Vitals: see above Lungs: Clear. Cardiac: S1S2. 1+ pedal edema Abdomen: Moderately obese. No rebound. Generally tender mid epigastric and right upper quadrant. Disposition/Potential discharge - Patient is currently living with her daughter, Manuela, here in [place]. Her residence is in [facility]. Manuela and the patient's sister, Abbey, our emergency contacts. Total time is 35 minutes with greater than 50% spent in counseling and coordination of care. Exam Const: Vital Signs, click to edit/add: Vital Signs - 24 hr 12/08/22 07:45 12/08/22 11:00 12/08/22 16:30 Temperature 98.9 F 98.4 F 98.3 F Pulse Rate [Left R adial] 77 82 77 Respiratory Rate 20 20 16 Blood Pressure [Le ft Arm] 106/63 118/60 107/65 Pulse Oximetry 92 94 94 Oxygen Delivery Me thod Room Air Room Air Room Air 12/08/22 19:05 12/08/22 23:00 12/09/22 03:00 Temperature 98.9 F 98.7 F 98.5 F Pulse Rate [Left R adial] 97 84 103 H Respiratory Rate 18 20 18 Blood Pressure [Le ft Arm] 118/65 132/86 146/84 H Pulse Oximetry 95 95 94 Oxygen Delivery Me thod Room Air Room Air Room Air Labs Labs: Laboratory Results - last 24 hr 12/08/22 12/08/22 12/08/22 06:24 06:24 06:24 WBC 25.48 H* RBC 4.86 Hgb 13.6 Hct 41.9 MCV 86 MCH 28 MCHC 33 RDW Coeff of Marissa 14.8 Plt Count 276 Neut % (Auto) 84.5 H Lymph % (Auto) 7.6 L [place] % (Auto) 7.0 Eos % (Auto) 0.2 Baso % (Auto) 0.0 Neut # (Auto) 21.50 H Lymph # (Auto) 1.90 [place] # (Auto) 1.80 H Eos # (Auto) 0.10 Baso # (Auto) 0.00 Diff Slide Review Acceptable Review INR 1.57 H VBG pH VBG pCO2 VBG pO2 VBG HCO3 Sodium 133 L Potassium 4.4 Chloride 102 Carbon Dioxide 24 BUN 20 Creatinine 0.9 Estimated Creat Clear 35.52 Estimated GFR 63 Glucose 91 Calcium 8.3 L Ionized Calcium Gilda Magnesium Total Bilirubin 1.5 Direct Bilirubin 0.5 AST 52 H ALT 37 H Alkaline Phosphatase 127 C-Reactive Protein 8.1 H Total Protein 6.8 Albumin 3.8 Lipase Procalcitonin 12/09/22 12/09/22 12/09/22 06:09 06:09 06:09 WBC 32.16 H* RBC 4.53 Hgb 12.7 Hct 39.4 MCV 87 MCH 28 MCHC 32 RDW Coeff of Marissa 14.8 Plt Count 285 Neut % (Auto) 83.0 H Lymph % (Auto) 8.7 L [place] % (Auto) 7.1 Eos % (Auto) 0.2 Baso % (Auto) 0.1 Neut # (Auto) 26.70 H Lymph # (Auto) 2.80 [place] # (Auto) 2.30 H Eos # (Auto) 0.10 Baso # (Auto) 0.00 Diff Slide Review Acceptable Review INR VBG pH 7.332 VBG pCO2 47 VBG pO2 29.6 VBG HCO3 25 Sodium 133 L Potassium 3.7 Chloride 104 Carbon Dioxide 23 BUN 19 Creatinine 0.9 Estimated Creat Clear 35.52 Estimated GFR 63 Glucose 126 H Calcium 7.9 L Ionized Calcium Gilda 1.01 L Magnesium 1.9 Total Bilirubin 1.6 H Direct Bilirubin 0.7 H AST 38 H ALT 31 Alkaline Phosphatase 131 C-Reactive Protein 4.7 H Total Protein 6.6 Albumin 3.5 Lipase 32 Procalcitonin 0.43
[2022-12-09] MEDS: FUROSEMIDE 10 MG/ML inj 20 MG IVP (07:58)
[2022-12-09 08:01] LABS: Bilirubin Total* 1.7 mg/dL (0.1-1.5)
[2022-12-09] MEDS: LIDOCAINE 0.5%-EPI 1:200,000 50 ML VIAL INJECTION (11:58)
[2022-12-09] MEDS: BUPIVACAINE 0.25% 30 ML INJECTION (11:58)
--- NOTE | 2022-12-09 13:42 | PC.NURSE ---
BP elevated at initial assessment. New orders for norvasc & atenolol initiated. Pt UAL in room and hallway. Denies SOB or pain. Adequate I & 0. Tele indicates afib with RVR and occasionl PACs noted-rate 118. MD aware of high BP and tachycardia. Echocardiogram in process at bedside currently. Adequate I & 0. Rechecked standing scale weight at pt's request this am 296.7. No behaviors or difficulty with swallowing pills.
--- NOTE | 2022-12-09 13:50 | W.ANESCHARGE ---
Anesthesia Charges Start Date/Time Anesthesia Start Date: 12/09/22 Anesthesia Start Time: 11:34 Stop Date/Time Anesthesia Stop Date: 12/09/22 Anesthesia Stop Time: 13:49 Summary Emergency: No Extremes of Age: Over 72-CPT 98396
--- NOTE | 2022-12-09 13:55 | W.ANESCHARGE ---
Anesthesia Charges Start Date/Time Anesthesia Start Date: 12/09/22 Anesthesia Start Time: 11:34 Stop Date/Time Anesthesia Stop Date: 12/09/22 Anesthesia Stop Time: 13:49 Summary Emergency: No Extremes of Age: Over 72-CPT 73748
--- NOTE | 2022-12-09 13:57 | PC.NURSE ---
Pt NPO except for ice chips sparingly this am. Pt stated she did not sleep well overnight and startled awake every 10 minutes or so. Pt has profound hearing loss, bilateral hearing aides out for planned surgery at 1100 am today. Jewelry removed and glasses are off. Pt received 20mg of IV Lasix, guardado catheter #16 Czech inserted with 350 cc of light melanie urine returned. IV Calcium gluconate infused per new order. Pain managed with dilaudid 0.5 mg prn. Pt states pain is 0 at rest, 8-9 with movement or deep breathing w/cough. Sister Oralia and her sister's spouse Skip present at bedside. IV Zosyn 3.375 mg completed through patent IV #[address] Zarate surgeon up to speak with pt and family. Anesthesia visit. SBAR completed. Pt taken to OR in her hospital bed for planned laparoscopic cholecystectomy with Dr. Zarate.
--- NOTE | 2022-12-09 14:03 | P.GSOP_ITS ---
Operative Note Date of procedure: 12/09/22 Pre-op diagnosis: 1. Acute cholecystitis. Post-op diagnosis: 1. Acute necrotizing cholecystitis with peritonitis. Type of Procedure: 1. Laparoscopic cholecystectomy. Indications: 87-year-old female was admitted to the hospital with acute cholecystitis. Patient was on Eliquis and Eliquis was held. Patient's WBC was elevated with normal liver function tests. An abdominal CT was obtained that showed acute cholecystitis with pericholecystic inflammation. On clinical exam patient had tenderness to palpation in the right upper quadrant. Given patient's clinical history and her imaging laboratory findings, acute cholecystitis was suspected, and laparoscopic cholecystectomy was recommended. Procedure was discussed in detail. The risks associated procedure including infection, bleeding, injury to intra-abdominal organs, and injury to the common bile duct were all discussed with the patient, and she agreed to proceed. Procedure Description: After discussing the risks and benefits of the procedure, the patient signed informed consent.? The operative site was marked and the patient was brought to the operating room and placed on the operating table in supine position.? Care was taken to pad the patient's pressure points.?? The patient was then intubated by anesthesia.?? The operative site was then prepped and draped in the usual sterile fashion.? A time-out was then performed. A 5-mm laparoscopy port was placed in the left upper quadrant guided by a 5-mm laparoscope placed into a translucent trochar.~ Passage through the layers of the abdominal wall was visualized with the laparoscope.~ A pneumoperitoneum was established. A 0-degree 5-mm laparoscope was advanced into the abdomen. The abdomen was briefly surveyed, and no adhesions were noted. A 10-mm port were placed supraumbilically and two more 5 mm ports were placed on the right under direct visualization by laparoscope. The camera was then changed to 10 mm 30- degree scope and placed into the abdomen through the 10 mm port. The left upper quadrant port entrance was examined and no injury to intra-abdominal organs was identified. Small bowel was dilated and there was evidence of peritonitis in the right upper quadrant. Omentum and transverse colon were adherent to the gallbladder and th ose were peeled off of the gallbladder with blunt dissection. The gallbladder was visualized and had patchy necrotic areas. The gallbladder was distended. I used laparoscopic needle and a 60 mL syringe to drain cloudy bile out of the gallbladder to be able to grasp the gallbladder with laparoscopic grasper. The bile was sent to microbiology for culture. The gallbladder was then dissected from nearby structures with blunt dissection and minimal hook cautery to avoid injury to adjacent structures. A thick inflammatory rind was encasing the gallbladder. The infundibulum was grasped and retracted laterally, the node of Calot was identified and dissected of the gallbladder with hook cautery. The cystic artery was clearly identified and was just medial and posterior to the cystic duct. The cystic artery was circumferentially dissected bluntly and with hook cautery. The cystic artery was then clipped with 2 5 mm clips on the patient's side and a single clip on the specimen side and divided with scissors. This allowed increased visualization to the structures posterior to the cystic duct. I continued dissecting bluntly posterior to the cystic duct until the cystic duct was circumferentially clear from inflammatory tissues. The cystic duct was clearly going into the gallbladder. The cystic duct was then doubly ligated with surgical clips on the patient's side and singly clipped on the gallbladder side and divided. The gallbladder was dissected from the liver bed in retrograde fashion using hookcautery. Significant inflammation was noted in the gallbladder wall. Ble eding was noted from the gallbladder fossa. This was controlled with hook cautery. The surface of the liver was friable. The gallbladder was placed into an Endo-Catch bag and removed through the supraumbilical incision. Surgical site was examined for bleeding and the surfaces in the gallbladder fossa were friable. Surgicel was used at the lateral edge of the liver to control bleeding that was not controlled with hook cautery. The Surgicel was then removed. No active bleeding was visualized. I elected to leave a GOMEZ drain in the gallbladder fossa. The drain was placed into the abdomen through the right- sided 5 mm port. The port was removed. The drain was secured in place with nylon stitch. The intra-abdominal portion of the drain was placed in the gallbladder fossa. Lobito was sprayed in the gallbladder fossa as well. The fascia of the supraumbilical incision was then closed with 0-0 vicryl running stitch under direct visualization. This closure was examined intra-abdominally and no intra-abdominal structures were incarcerated in the closure. Pneumoperitoneum was completely reduced after viewing removal of the trocars under direct vision. The skin was then closed with 4-0 monocryl and steristrips were applied. Instrument, sponge, and needle counts were correct at closure and at the conclusion of the case. The patient was transferred to PACU in stable condition. Findings: Necrotizing cholecystitis with peritonitis and ileus. Anesthesia: GETA Surgeon: Gabriella Zarate MD Estimated blood loss (mL): 10 Specimen: Gallbladder Condition: stable Disposition: PACU
--- NOTE | 2022-12-09 14:53 | PC.NURSE ---
Pt returned to room 261 s/p surgery @ 1425 pm. Initial assessment completed by myself. Pt has glassy stare and responds to voice, follows simple commands, oxygen at 2L/NC. Please see frequent VS. Pt is tolerating ice chips. Pt denies pain, dozes off between nsg interventions. HOB slightly elevated. GOMEZ draining serosanguinous fluid. Fregoso patent with light yellow urine. Abdominal dressing CDI. Family notified that pt has returned to her room. HUSLIA. Report will be given to oncoming shift RN.
[2022-12-09] MEDS: 0.9 % SODIUM CHLORIDE 250 ml IV (18:20)
--- NOTE | 2022-12-09 18:41 | PC.NURSE ---
Shift note: Pt condition is stable and has been in bed throughout the shift. Pt complained of incisional pain of 7 and get worse with movement in bed. Ice pack applied and PRN pain medication given as ordered. Dressing appears clean and dry. Jourdan tube drained bloody content and empted about 160ml this shift. Vitally stable. Sips and ice chips given as ordered. Appears comfortable and sleeping. Urethral catheter is patent draining clear urine.
[2022-12-09 18:52] LABS: Albumin* 3.2 g/dL (3.3-5.0)
[2022-12-09 18:54] LABS: Bilirubin Direct* 2.3 mg/dL (0.0-0.5); Bilirubin Total* 2.8 mg/dL (0.1-1.5)
[2022-12-09 18:55] LABS: Alanine Aminotransferase* 45 U/L (4-35); Alkaline Phosphatase* 309 U/L (40-150); Aspartate Amino Transferase* 80 U/L (12-35); Total Protein* 6.2 g/dL (6.0-8.3)
[2022-12-09] MEDS: 5 % DEXTROSE IN LAC RINGER'S 1,000 ML 75 ML IV (22:16)
[2022-12-10] VITALS (12 sets, daily range): BP systolic 118–162; BP diastolic 75–112; PULSE 86–136; RESP 12–20; TEMP 36.4–36.9; O2SAT 94–100
[2022-12-10] MEDS: HYDROmorphone 0.5 mg/0.5 ml inj IVP ×9 (00:14→23:33)
[2022-12-10] MEDS: SODIUM CHLORIDE 0.9 % (FLUSH) 10 ML SYRINGE 5 ML IVF ×3 (00:15→17:36)
[2022-12-10] MEDS: PIPERACILLIN/TAZOBACTAM 3.375 GM in 0.9 % SODIUM CHLORIDE Mini-bag 100 ML IVPB ×4 (04:28→22:39)
--- NOTE | 2022-12-10 05:25 | PC.NURSE ---
[id number] Pt bedrest during shift, pain to upper abdomen increases with cough/movement. some relief with prn dilaudid and ice. Pt c/o hard area to upper abdomen feels bloated, tender to touch and distended. bowel sounds hypoactive, pt unsure if shes passing gas. Lap sites C/D/I, GOMEZ drain stripped and emptied q4h. Denies N/V, occasionally burps. Eating ice chips. Fregoso patent and draining. Denies SOB, chest pain or headache.
[2022-12-10] MEDS: Fluticasone-Umeclidin-Vilanter [Trelegy Ellipta] 1 EACH IH (05:56)
[2022-12-10 07:37] LABS: Hematocrit 37.2 % (33.0-51.0); Hemoglobin* 12.2 gm/dL (12.0-16.0); Immature Granulocytes Pct Auto 0.3 %; Lymphocytes Percent Auto 10.9 % (20-44); Mean Corpuscular HGB Conc 33 gm/dL (32-36); Mean Corpuscular Hemoglobin 28 pg (26-34); Mean Corpuscular Volume 85 fL (80-100); Monocytes Percent Auto 3.8 % (0.0-11.0); Platelet Count* 300 K/uL (140-440); RDW Coefficient of Variation % 14.6 % (11.5-15.5); Red Blood Count 4.36 m/uL (4.00-5.20); White Blood Count* 22.92 K/uL (4.50-11.00)
[2022-12-10 07:39] LABS: Slide Review Reflex No
[2022-12-10 07:52] LABS: Chloride* 102 mmol/L (96-114)
[2022-12-10 07:53] LABS: Potassium* 3.2 mmol/L (3.6-5.1); Sodium* 135 mmol/L (135-149)
[2022-12-10 07:55] LABS: Creatinine* 0.9 mg/dL (0.5-1.5); Est. Creatinine Clearance* 35.52; Estimated Glomerular Filt Rate 63 ml/min
[2022-12-10 07:56] LABS: Blood Urea Nitrogen* 17 mg/dL (7-30); Calcium* 8.2 mg/dL (8.4-10.6); Carbon Dioxide* 28 mmol/L (20-32); Glucose* 153 mg/dL (60-115)
[2022-12-10] MEDS: ONDANSETRON 2 MG/ML inj 4 MG IVP ×3 (09:17→20:11)
--- NOTE | 2022-12-10 09:26 | PM.GSPN ---
Subjective Subjective Date Seen: 12/10/22 Interval history: Patient complains of abdominal bloating and pain. She states that she ?does not feel good?. Patient was tachycardic at multiple checks. She denies vomiting. She is not passing gas. She has not been out of bed. Patient's hemoglobin is 12.2 today, not significantly changed from yesterday. Exam Narrative: Exam Narrative: Abdomen is mildly distended in the upper abdomen, tender to palpation in the right upper quadrant and epigastrium. The GOMEZ drain is in place with minimal amount of serosanguineous fluid. Const: Vital Signs, click to edit/add: Vital Signs - 24 hr 12/09/22 11:00 12/09/22 13:45 12/09/22 14:00 Temperature 98.2 F Pulse Rate 77 81 Pulse Rate [Left R adial] 99 Respiratory Rate 20 19 16 Blood Pressure 95/28 L 97/69 Blood Pressure [Le ft Arm] Blood Pressure [Ri ght Arm] Pulse Oximetry 99 91 Oxygen Delivery Me thod OxyMask Room Air Oxygen Flow Rate 12/09/22 14:10 12/09/22 13:55 12/09/22 14:05 Temperature Pulse Rate 84 73 87 Pulse Rate [Left R adial] Respiratory Rate 16 16 16 Blood Pressure 94/59 L 100/63 99/57 L Blood Pressure [Le ft Arm] Blood Pressure [Ri ght Arm] Pulse Oximetry 92 98 92 Oxygen Delivery Me thod Nasal Cannula OxyMask Nasal Cannula Oxygen Flow Rate 2 2 12/09/22 14:15 12/09/22 14:25 12/09/22 14:45 Temperature 97.8 F 97.8 F Pulse Rate 93 111 H Pulse Rate [Left R adial] 111 H Respiratory Rate 16 20 20 Blood Pressure 101/72 Blood Pressure [Le ft Arm] 111/47 L 119/61 Blood Pressure [Ri ght Arm] Pulse Oximetry 94 97 Oxygen Delivery Me thod Nasal Cannula Nasal Cannula Nasal Cannula Oxygen Flow Rate 2 2 2 12/09/22 14:45 12/09/22 15:00 12/09/22 15:00 Temperature 97.6 F Pulse Rate Pulse Rate [Left R adial] 91 95 96 Respiratory Rate 20 20 18 Blood Pressure Blood Pressure [Le ft Arm] 110/46 L 112/62 105/61 Blood Pressure [Ri ght Arm] Pulse Oximetry 92 95 97 Oxygen Delivery Me thod Nasal Cannula Nasal Cannula Room Air Oxygen Flow Rate 2 2 12/09/22 15:15 12/09/22 15:45 12/09/22 16:00 Temperature 97.6 F 97.1 F L 96.5 F L Pulse Rate Pulse Rate [Left R adial] 96 104 H 108 H Respiratory Rate 18 18 18 Blood Pressure Blood Pressure [Le ft Arm] 105/61 107/76 118/72 Blood Pressure [Ri ght Arm] Pulse Oximetry 97 95 100 Oxygen Delivery Me thod Room Air Room Air Room Air Oxygen Flow Rate 2 2 2 12/09/22 18:00 12/09/22 19:00 12/09/22 19:00 Temperature 97 F L 97.8 F 97.8 F Pulse Rate Pulse Rate [Left R adial] 110 H 96 96 Respiratory Rate 18 18 18 Blood Pressure Blood Pressure [Le ft Arm] 121/73 Blood Pressure [Ri ght Arm] 130/87 130/87 Pulse Oximetry 100 96 96 Oxygen Delivery Me thod Room Air Room Air Room Air Oxygen Flow Rate 2 0 0 12/09/22 20:00 12/09/22 22:49 12/10/22 03:00 Temperature 97.3 F L 97.1 F L 98.1 F Pulse Rate Pulse Rate [Left R adial] 101 H 108 H 120 H Respiratory Rate 18 10 L 12 Blood Pressure Blood Pressure [Le ft Arm] Blood Pressure [Ri ght Arm] 130/77 130/77 161/75 H Pulse Oximetry 95 94 97 Oxygen Delivery Me thod Room Air Room Air Room Air Oxygen Flow Rate 0 0 0 Progress Note: A&P Assessment and plan (1) Acute cholecystitis: Problem details: -on zosyn; -trending leukocytosis, inflammatory markers. Status: Acute Plan 87-year-old female s/p laparoscopic cholecystectomy for necrotizing cholecystitis with peritonitis POD 1. I explained to the patient that she had significant inflammation in her abdomen and most likely has an ileus now. Will continue with IV antibiotics and NPO. Patient can have ice chips for comfort. Patient is tachycardic and this is most likely due to systemic inflammatory response or sepsis. Her blood pressure is stable. Her hemoglobin is not significantly changed from preoperative. Will work on controlling patient's pain. I discussed with the patient that she needs to sit in the chair and ambulate. We can start her Lovenox for DVT prophylaxis tonight.
[2022-12-10 09:57] LABS: Albumin* 3.2 g/dL (3.3-5.0)
[2022-12-10 10:00] LABS: Aspartate Amino Transferase* 73 U/L (12-35); Bilirubin Direct* 0.8 mg/dL (0.0-0.5); Bilirubin Total* 1.3 mg/dL (0.1-1.5); Total Protein* 6.7 g/dL (6.0-8.3)
[2022-12-10 10:01] LABS: Alanine Aminotransferase* 46 U/L (4-35); Alkaline Phosphatase* 281 U/L (40-150)
[2022-12-10] MEDS: dilTIAZem 5 MG/ML inj 10 MG IVP (10:08)
[2022-12-10] MEDS: 0.9 % SODIUM CHLORIDE 500 ML 500 ML IV (10:11)
--- NOTE | 2022-12-10 10:29 | CRLHL7_ITS ---
For Patients: As a result of the Century Cures Act, medical imaging exams and procedure reports are released immediately into your electronic medical record. You may view this report before your referring provider. If you have questions, please contact your health care provider. INDICATION: Congestive heart failure COMPARISON: October 31, 2022 TECHNIQUE: Single-view study December 02, 2022 at 10:37 a.m. FINDINGS: TUBES AND LINES: None. HEART AND MEDIASTINUM: Stable enlargement of the heart. LUNGS AND PLEURAL SPACES: Vascular congestion likely representing mild edema/CHF. The pleural spaces appear normal OSSEOUS STRUCTURES: Age-appropriate appearance. No acute focal finding. IMPRESSION: Unchanged enlargement of the heart. Vascular congestion likely representing mild edema/CHF. No focal consolidation. Normal pleural spaces. Dictated by Yakov Mccormick MD @ 12/10/2022 12:17:58 PM (Electronically Signed)
[2022-12-10 10:59] LABS: Gamma Glutamyl Transpeptidase* 244 U/L (8-55); Magnesium* 2.7 mg/dL (1.5-2.6)
[2022-12-10] MEDS: METOPROLOL TARTRATE 25 MG TABLET PO (11:07)
[2022-12-10 11:10] LABS: NT Pro B Type NatriureticPept* 3710 pg/mL
[2022-12-10 11:17] LABS: Procalcitonin* 0.29 ng/mL (<0.50)
[2022-12-10 11:24] LABS: Troponin I* < 0.01 ng/mL (0.01-0.04)
--- NOTE | 2022-12-10 12:20 | PM.IMPN1 ---
Progress Note: A&P Assessment and plan (1) Peritonitis: Problem details: -continue Zosyn -I's and O's. Follow urine output. Already has some mild CHF so we need to be gentle with our fluids. She is in RVR. Needs rate control while preserving systolic blood pressure. Her anticoagulation will begin tonight with Lovenox. He does have home Eliquis to start, if she is able to tolerate p.o. we can also do this in lieu of Lovenox. Status: Acute (2) Acute cholecystitis: Problem details: -necrotizing with peritonitis. Likely postop ileus. -ice chips only -supportive care - antiemetics, fluid bolus p.r.n. -pain management Status: Acute (3) Atrial fibrillation with RVR: Problem details: Given 1 dose of IV diltiazem this morning on the floor followed by 1 p.o. dose of oral metoprolol 25 mg. I have this ordered Q 4 p.r.n. heart rate greater than 110. Status: Acute (4) CHF with unknown LVEF: Problem details: reviewed echo 09/13, normal EF. neg troponin this am AFIB/RVR hemodynamically stable careful observation of UOP/fluids/O2 needs/GALAVIZ Status: Acute (5) HTN (hypertension): Problem details: stable Status: Acute Subjective Date Seen: 12/10/22 Interval history: Daily Progress Note - Hospital Medicine Day #: 4 POD #1 1. Laparoscopic cholecystectomy. CC: Acute necrotizing cholecystitis with peritonitis, history of recent stroke OVERNIGHT UPDATES FROM STAFF & MED, LAB, IMAGING UPDATES Patient feels unwell this morning. She states she feels so exhausted, intermittent abdominal pain, shortness of breath and anxious but tired all at the same time. She has remained on room air. She has remained afebrile. She does have a Fregoso and a GOMEZ drain from her lap choly last night. Her acute cholecystitis was complicated by peritonitis. She is on only sips and chips p.o.. Afebrile since surgery Blood pressure is 140/90, 160/75, 130/77 Pulse rate she started become tachycardia yesterday afternoon prior to surgery, seem to level out but then became tachycardic to the 120s and 130s overnight. ECG showed AFib with RVR. Her AFib is not new. Her meds were not restarted after surgery so she did not get her metoprolol this morning. She continues to be on room air White blood cell count is down to 22.9 from 30/ 0.16 Hemoglobin is stable 12.2 85% neutrophils Platelet count is adequate at 300 Potassium is a little low at 3.2 Renal function and other electrolytes are normal Glucose 153 Magnesium is acceptable Bilirubin has down trended nicely LFTs are down trending Troponin negative this morning CRP did jump quite a bit from 4.7-27, procalcitonin 0.29 BNP is 3700 - no baseline Abdomen is just a little low at 3.2 Chest x-ray this morning Unchanged enlargement of the heart. Vascular congestion likely representing mild edema/CHF. No focal consolidation. Normal pleural spaces. G stain from the biliary fluid shows Gram-positive cocci, cultures pending No blood cultures are pending Patient continues on Zosyn Echo ([employer] 09/13) Normal EF (60-65%) . mild LVH. indeterminate dystolic function, normal systolic function and right sided function. No significant vavlular abnl. From Admission CT abdomen pelvis from yesterday Gallbladder distention measuring up to 5.1 cm, with pericholecystic fat stranding seen. Small amount of high density material seen within the gallbladder on image 71, series 2. Trace/mild intrahepatic biliary ductal dilatation. The common bile duct appears normal in size. Duodenal diverticulum is present. No pancreatic ductal dilatation. Objective: Vitals: see above Lungs: Clear. Cardiac: S1S2. 1+ pedal edema Abdomen: Moderately obese. No rebound. Generally tender mid epigastric and right upper quadrant. Disposition/Potential discharge - Patient is currently living with her daughter, Manuela, here in [place]. Her residence is in [facility]. Manuela and the patient's sister, Abbey, our emergency contacts. Total time is 35 minutes with greater than 50% spent in counseling and coordination of care. Exam Const: Vital Signs, click to edit/add: Vital Signs - 24 hr 12/09/22 13:45 12/09/22 14:00 12/09/22 14:10 Temperature 98.2 F Pulse Rate 77 81 84 Pulse Rate [Left R adial] Respiratory Rate 19 16 16 Blood Pressure 95/28 L 97/69 94/59 L Blood Pressure [Le ft Arm] Blood Pressure [Ri ght Arm] Pulse Oximetry 99 91 92 Oxygen Delivery Me thod OxyMask Room Air Nasal Cannula Oxygen Flow Rate 2 12/09/22 13:55 12/09/22 14:05 12/09/22 14:15 Temperature Pulse Rate 73 87 93 Pulse Rate [Left R adial] Respiratory Rate 16 16 16 Blood Pressure 100/63 99/57 L 101/72 Blood Pressure [Le ft Arm] Blood Pressure [Ri ght Arm] Pulse Oximetry 98 92 94 Oxygen Delivery Me thod OxyMask Nasal Cannula Nasal Cannula Oxygen Flow Rate 2 2 12/09/22 14:25 12/09/22 14:45 12/09/22 14:45 Temperature 97.8 F 97.8 F Pulse Rate 111 H Pulse Rate [Left R adial] 111 H 91 Respiratory Rate 20 20 20 Blood Pressure Blood Pressure [Le ft Arm] 111/47 L 119/61 110/46 L Blood Pressure [Ri ght Arm] Pulse Oximetry 97 92 Oxygen Delivery Me thod Nasal Cannula Nasal Cannula Nasal Cannula Oxygen Flow Rate 2 2 2 12/09/22 15:00 12/09/22 15:00 12/09/22 15:15 Temperature 97.6 F 97.6 F Pulse Rate Pulse Rate [Left R adial] 95 96 96 Respiratory Rate 20 18 18 Blood Pressure Blood Pressure [Le ft Arm] 112/62 105/61 105/61 Blood Pressure [Ri ght Arm] Pulse Oximetry 95 97 97 Oxygen Delivery Me thod Nasal Cannula Room Air Room Air Oxygen Flow Rate 2 2 12/09/22 15:45 12/09/22 16:00 12/09/22 18:00 Temperature 97.1 F L 96.5 F L 97 F L Pulse Rate Pulse Rate [Left R adial] 104 H 108 H 110 H Respiratory Rate 18 18 18 Blood Pressure Blood Pressure [Le ft Arm] 107/76 118/72 121/73 Blood Pressure [Ri ght Arm] Pulse Oximetry 95 100 100 Oxygen Delivery Me thod Room Air Room Air Room Air Oxygen Flow Rate 2 2 2 12/09/22 19:00 12/09/22 19:00 12/09/22 20:00 Temperature 97.8 F 97.8 F 97.3 F L Pulse Rate Pulse Rate [Left R adial] 96 96 101 H Respiratory Rate 18 18 18 Blood Pressure Blood Pressure [Le ft Arm] Blood Pressure [Ri ght Arm] 130/87 130/87 130/77 Pulse Oximetry 96 96 95 Oxygen Delivery Me thod Room Air Room Air Room Air Oxygen Flow Rate 0 0 0 12/09/22 22:49 12/10/22 03:00 12/10/22 08:03 Temperature 97.1 F L 98.1 F 97.5 F L Pulse Rate Pulse Rate [Left R adial] 108 H 120 H 103 H Respiratory Rate 10 L 12 20 Blood Pressure Blood Pressure [Le ft Arm] Blood Pressure [Ri ght Arm] 130/77 161/75 H 143/91 H Pulse Oximetry 94 97 99 Oxygen Delivery Me thod Room Air Room Air Room Air Oxygen Flow Rate 0 0 Labs Labs: Laboratory Results - last 24 hr 12/09/22 12/10/22 12/10/22 18:30 07:25 07:25 WBC 22.92 H RBC 4.36 Hgb 12.2 Hct 37.2 MCV 85 MCH 28 MCHC 33 RDW Coeff of Marissa 14.6 Plt Count 300 Neut % (Auto) 85.0 H Lymph % (Auto) 10.9 L [place] % (Auto) 3.8 Eos % (Auto) 0.0 Baso % (Auto) 0.0 Neut # (Auto) 19.50 H Lymph # (Auto) 2.50 [place] # (Auto) 0.90 Eos # (Auto) 0.00 Baso # (Auto) 0.00 Sodium 135 Potassium 3.2 L Chloride 102 Carbon Dioxide 28 BUN 17 Creatinine 0.9 Estimated Creat Clear 35.52 Estimated GFR 63 Glucose 153 H Calcium 8.2 L Magnesium 2.7 H Total Bilirubin 2.8 H Direct Bilirubin 2.3 H GGT 244 H AST 80 H ALT 45 H Alkaline Phosphatase 309 H Troponin I < 0.01 L C-Reactive Protein 27.0 H NT-Pro-B Natriuret Pep 3710 Total Protein 6.2 Albumin 3.2 L Procalcitonin 0.29 12/10/22 07:25 WBC RBC Hgb Hct MCV MCH MCHC RDW Coeff of Marissa Plt Count Neut % (Auto) Lymph % (Auto) [place] % (Auto) Eos % (Auto) Baso % (Auto) Neut # (Auto) Lymph # (Auto) [place] # (Auto) Eos # (Auto) Baso # (Auto) Sodium Potassium Chloride Carbon Dioxide BUN Creatinine Estimated Creat Clear Estimated GFR Glucose Calcium Magnesium Total Bilirubin 1.3 Direct Bilirubin 0.8 H GGT AST 73 H ALT 46 H Alkaline Phosphatase 281 H Troponin I C-Reactive Protein NT-Pro-B Natriuret Pep Total Protein 6.7 Albumin 3.2 L Procalcitonin
[2022-12-10] MEDS: PROCHLORPERAZINE 5 MG/ML VIAL IV (12:22)
[2022-12-10] MEDS: 5 % DEXTROSE IN LAC RINGER'S 1,000 ML 75 ML IV (15:36)
[2022-12-10] MEDS: METOPROLOL TARTRATE 25 MG TABLET 50 MG PO (17:34)
[2022-12-10] MEDS: 0.9 % SODIUM CHLORIDE 250 ml IV (17:34)
[2022-12-10] MEDS: ENOXAPARIN 40 MG/0.4 ML INJ SUBCUT (17:34)
--- NOTE | 2022-12-10 19:24 | PC.NURSE ---
Pt c/o nausea, pain at initial shift assessment. I just got up and walked around the bed. New IV bag hung, pt received ondansetron 4mg IV and 0.5mg IV Dilaudid from Demetra morse RN. Pt slept well. Continues on sips and chips. Pt received her IV ATB and Lovenox. Dilaudid repeated prior to scheduled shift change. Report to Tess Cohen RN for manager cardiac cath.
[2022-12-10] MEDS: 0.9 % SODIUM CHLORIDE 1000 ml 1,000 ML 500 ML IV (22:45)
[2022-12-11] VITALS (8 sets, daily range): BP systolic 138–173; BP diastolic 80–118; PULSE 81–106; RESP 18–20; TEMP 36.3–37; O2SAT 94–99
--- NOTE | 2022-12-11 00:01 | CRLHL7_ITS ---
For Patients: As a result of the Century Cures Act, medical imaging exams and procedure reports are released immediately into your electronic medical record. You may view this report before your referring provider. If you have questions, please contact your health care provider. INDICATION: Evaluate for small bowel obstruction versus postoperative ileus, bowel perforation. TECHNIQUE: CT abdomen and pelvis without contrast. COMPARISON: CT abdomen/pelvis dated 12/07/2022. FINDINGS: Lower chest: Small right pleural effusion, trace left pleural effusion, bibasilar dependent atelectasis. Evaluation of solid organs is limited secondary to lack of IV contrast administration. Liver: No suspicious focal hepatic lesion. Gallbladder and bile ducts: Postcholecystectomy. Mild inflammatory changes adjacent to the cholecystectomy bed, expected postoperatively. Pancreas: Unremarkable. Spleen: Unremarkable. Adrenal glands: Unremarkable. Kidneys: No renal calculi or hydronephrosis bilaterally. Retroperitoneum: No lymphadenopathy. Bowel and mesentery: Numerous loops of mildly dilated fluid-filled small bowel, with gradual tapering at the terminal ileum, favored to reflect ileus. Patulous fluid-filled distal esophagus is noted. Mild mesenteric edema. No pneumoperitoneum to suggest presence of bowel perforation. Right ventral abdominal wall percutaneous drain is in place, tip projects near the right pericolic gutter. No fluid collection identified. Bladder: Partially decompressed in the presence of a Fregoso catheter. Reproductive organs: Posthysterectomy. Pelvic lymph nodes: No lymphadenopathy. Vessels: Atherosclerotic calcifications. Abdominal wall: Laparoscopic port sites are noted. Mild anasarca. Bones: Multilevel degenerative changes of the spine. Bones are osteopenic. IMPRESSION: 1. Numerous loops of mildly dilated fluid-filled small bowel without focal transition point, favored to reflect ileus. 2. No pneumoperitoneum to suggest presence of bowel perforation. 3. Expected postsurgical changes following cholecystectomy. 4. Small bilateral pleural effusions. Patulous fluid-filled esophagus is noted, which predisposes the patient to aspiration. Please note that all CT scans at this facility use dose modulation, iterative reconstruction, and/or weight-based dosing when appropriate to reduce radiation dose to as low as reasonably achievable. Dictated by Nilam Fernandez MD @ 12/11/2022 1:08:38 AM (Electronically Signed)
[2022-12-11] MEDS: ONDANSETRON 2 MG/ML inj 4 MG IVP ×2 (01:04→05:51)
--- NOTE | 2022-12-11 01:05 | PM.EN ---
Chart Event Note Time Seen by Provider: 01:05 Date Seen: 12/11/22 Chart Event Note: yang c/o of dry lips, dry mouth and upper abdominal pain that is coming in waves, getting worse throughout he evening. AFIB RVR is much better controlled. CT A/P ordered I gave her a bolus and reviewed CT images - No perforation, SBO. ileus likely - may be at risk for aspiration. 30 degree HOB. pain management and antiemetics. no NG needed at this time
[2022-12-11] MEDS: HYDROmorphone 0.5 mg/0.5 ml inj IVP ×4 (03:50→16:01)
[2022-12-11] MEDS: PROCHLORPERAZINE 5 MG/ML VIAL IV (03:50)
[2022-12-11] MEDS: PIPERACILLIN/TAZOBACTAM 3.375 GM in 0.9 % SODIUM CHLORIDE Mini-bag 100 ML IVPB ×4 (04:28→22:41)
[2022-12-11] MEDS: Fluticasone-Umeclidin-Vilanter [Trelegy Ellipta] 1 EACH IH (05:46)
[2022-12-11] MEDS: METOPROLOL TARTRATE 50 MG TABLET PO (05:46)
--- NOTE | 2022-12-11 06:35 | PC.NURSE ---
Pt is alert and oriented x3. Afebrile. Pt reports 10/10 upper quadrant abdominal pain and nausea, pain and nausea managed with PRN medications throughout night. Pt has one right abdominal GOMEZ drain that is patent and draining serosanguinous liquid overnight it drained a total of 170 ml. Abdominal dressing is CDI. Pt is up A1 with walker and gait belt. Pt is NPO. ?
[2022-12-11 07:21] LABS: Basophils Percent Auto 0.1 % (0.0-3.0); Eosinophils Percent Auto 0.1 % (0.0-7.0); Hematocrit 35.6 % (33.0-51.0); Hemoglobin* 11.7 gm/dL (12.0-16.0); Immature Granulocytes Pct Auto 0.6 %; Lymphocytes Percent Auto 14.2 % (20-44); Mean Corpuscular HGB Conc 33 gm/dL (32-36); Mean Corpuscular Hemoglobin 28 pg (26-34); Mean Corpuscular Volume 85 fL (80-100); Platelet Count* 361 K/uL (140-440); RDW Coefficient of Variation % 14.5 % (11.5-15.5); Red Blood Count 4.17 m/uL (4.00-5.20); White Blood Count* 17.57 K/uL (4.50-11.00)
[2022-12-11 07:27] LABS: Slide Review Reflex No
[2022-12-11 07:38] LABS: Chloride* 102 mmol/L (96-114); Potassium* 3.1 mmol/L (3.6-5.1); Sodium* 137 mmol/L (135-149)
[2022-12-11 07:41] LABS: Blood Urea Nitrogen* 22 mg/dL (7-30); Calcium* 7.6 mg/dL (8.4-10.6); Carbon Dioxide* 28 mmol/L (20-32); Creatinine* 0.8 mg/dL (0.5-1.5); Est. Creatinine Clearance* 35.52; Estimated Glomerular Filt Rate 72 ml/min; Glucose* 149 mg/dL (60-115)
[2022-12-11] MEDS: SODIUM CHLORIDE 0.9 % (FLUSH) 10 ML SYRINGE 5 ML IVF (10:15)
--- NOTE | 2022-12-11 10:39 | P.IMPN_ITS ---
Progress Note: A&P Assessment and plan (1) Acute cholecystitis: Problem details: -necrotizing with peritonitis. Likely postop ileus. -pain control; diet; dvt ppx per surgery Status: Acute (2) Peritonitis: Problem details: -continue Zosyn -I's and O's. Follow urine output. Already has some mild CHF so we need to be gentle with our fluids. She is in RVR. Needs rate control while preserving sy stolic blood pressure. on prophylactic Lovenox. Resume eliquis once able to take meds and ok with surgery Status: Acute (3) Atrial fibrillation: Problem details: -rate controlled; holding eliquis. Last dose was p.m. of 10/06. -last dose of aspirin a.m. of 10/06 Status: Acute (4) CHF with unknown LVEF: Problem details: reviewed echo 09/13, normal EF. neg troponin this am AFIB/RVR hemodynamically stable careful observation of UOP/fluids/O2 needs/GALAVIZ Status: Acute (5) COPD (chronic obstructive pulmonary disease): Problem details: -on room air Status: Acute (6) CLL (chronic lymphocytic leukemia): Problem details: Under surveillance only. Has been reassured by Oncology in recent visits. Status: Acute (7) Hypokalemia: Problem details: potassium replacement ordered 12/11 Status: Acute Subjective Date Seen: 12/11/22 Interval history: patient endorses fatigue no BM/not passing gas NPO endorses nausea denies chest pain denies SOB Exam Narrative: Exam Narrative: Gen: no acute distress HEENT: NCAT EOMI mmm CV: IRIR normal s1 s2 Lungs: CTAB Abd: Soft,nt, nd; hypoactive bowel sounds Neuro: Alert, oriented, CN grossly intact; nonfocal screening?exam Psych: appropriate affect MSK: age appropriate muscle mass Skin; Warm, dry no rash on face Const: Vital Signs, click to edit/add: Vital Signs - 24 hr 12/10/22 11:17 12/10/22 10:42 12/10/22 12:19 Temperature Pulse Rate 109 H Pulse Rate [Left R adial] 109 H 96 Pulse Rate [Pulse Oximeter] Respiratory Rate Blood Pressure [Ri ght Arm] 144/108 H 149/82 H Pulse Oximetry Oxygen Delivery Me thod Oxygen Flow Rate 12/10/22 15:45 12/10/22 15:00 12/10/22 19:00 Temperature 98 F 98.2 F Pulse Rate 109 H Pulse Rate [Left R adial] 109 H 86 Pulse Rate [Pulse Oximeter] Respiratory Rate 20 20 Blood Pressure [Ri ght Arm] 153/108 H 118/93 H Pulse Oximetry 96 95 Oxygen Delivery Me thod Room Air Room Air Oxygen Flow Rate 0 12/10/22 19:00 12/11/22 01:23 12/10/22 23:00 Temperature Pulse Rate 103 H 106 H Pulse Rate [Left R adial] 104 H Pulse Rate [Pulse Oximeter] Respiratory Rate Blood Pressure [Ri ght Arm] Pulse Oximetry Oxygen Delivery Me thod Oxygen Flow Rate 12/10/22 23:00 12/11/22 04:30 12/11/22 05:21 Temperature 98.5 F 97.4 F L Pulse Rate 104 H Pulse Rate [Left R adial] 104 H 81 Pulse Rate [Pulse Oximeter] Respiratory Rate 20 20 Blood Pressure [Ri ght Arm] 119/95 H 141/90 H Pulse Oximetry 100 95 Oxygen Delivery Me thod Room Air Room Air Oxygen Flow Rate 0 12/11/22 07:30 12/11/22 08:09 Temperature 97.8 F Pulse Rate 94 Pulse Rate [Left R adial] Pulse Rate [Pulse Oximeter] 92 Respiratory Rate 18 Blood Pressure [Ri ght Arm] 153/105 H Pulse Oximetry 94 Oxygen Delivery Me thod Room Air Oxygen Flow Rate Labs Labs: Laboratory Results - last 24 hr 12/10/22 12/11/22 12/11/22 07:25 06:39 06:39 WBC 17.57 H RBC 4.17 Hgb 11.7 L Hct 35.6 MCV 85 MCH 28 MCHC 33 RDW Coeff of Marissa 14.5 Plt Count 361 Neut % (Auto) 78.0 H Lymph % (Auto) 14.[address] [facility] % (Auto) 7.0 Eos % (Auto) 0.1 Baso % (Auto) 0.1 Neut # (Auto) 13.70 H Lymph # (Auto) 2.50 [facility] # (Auto) 1.20 H Eos # (Auto) 0.00 Baso # (Auto) 0.00 Sodium 137 Potassium 3.1 L Chloride 102 Carbon Dioxide 28 BUN 22 Creatinine 0.8 Estimated Creat Clear 35.52 Estimated GFR 72 Glucose 149 H Calcium 7.6 L Magnesium 2.7 H GGT 244 H Troponin I < 0.01 L C-Reactive Protein 27.0 H NT-Pro-B Natriuret Pep 3710 Procalcitonin 0.29
[2022-12-11] MEDS: POTASSIUM CHLORIDE 10 MEQ/100 ML PIGGYBACK 100 MEQ IVPB ×4 (10:53→14:44)
[2022-12-11 10:54] LABS: Magnesium* 2.6 mg/dL (1.5-2.6)
[2022-12-11] MEDS: 5 % DEXTROSE IN LAC RINGER'S 1,000 ML 75 ML IV (10:55)
--- NOTE | 2022-12-11 12:34 | P.GSPN_ITS ---
Subjective Subjective Date Seen: 12/11/22 Interval history: Patient developed AFib with RVR yesterday. Her heart rate is coming down today. Patient complains of abdominal bloating. She is not passing gas. He still complains of abdominal pain that is relieved with pain medication. She sat in the chair yesterday and today. She did not ambulate. She vomited once yesterday. GOMEZ drain with serosanguineous fluid. Exam Narrative: Exam Narrative: Abdomen is distended, minimally tender to palpation in epigastrium but not tender anywhere else. This is improved from yesterday. GOMEZ drain with serosanguineous fluid. The drain was removed today and the drain site was covered with absorbent dressing. Laparoscopic incisions are covered with Steri- Strips and there is no surrounding erythema. Const: Vital Signs, click to edit/add: Vital Signs - 24 hr 12/10/22 15:45 12/10/22 15:00 12/10/22 19:00 Temperature 98 F 98.2 F Pulse Rate 109 H Pulse Rate [Left R adial] 109 H 86 Pulse Rate [Pulse Oximeter] Respiratory Rate 20 20 Blood Pressure [Ri ght Arm] 153/108 H 118/93 H Pulse Oximetry 96 95 Oxygen Delivery Me thod Room Air Room Air Oxygen Flow Rate 0 12/10/22 19:00 12/11/22 01:23 12/10/22 23:00 Temperature Pulse Rate 103 H 106 H Pulse Rate [Left R adial] 104 H Pulse Rate [Pulse Oximeter] Respiratory Rate Blood Pressure [Ri ght Arm] Pulse Oximetry Oxygen Delivery Me thod Oxygen Flow Rate 12/10/22 23:00 12/11/22 04:30 12/11/22 05:21 Temperature 98.5 F 97.4 F L Pulse Rate 104 H Pulse Rate [Left R adial] 104 H 81 Pulse Rate [Pulse Oximeter] Respiratory Rate 20 20 Blood Pressure [Ri ght Arm] 119/95 H 141/90 H Pulse Oximetry 100 95 Oxygen Delivery Me thod Room Air Room Air Oxygen Flow Rate 0 12/11/22 07:30 12/11/22 08:09 12/11/22 11:10 Temperature 97.8 F 98.6 F Pulse Rate 94 Pulse Rate [Left R adial] Pulse Rate [Pulse Oximeter] 92 86 Respiratory Rate 18 18 Blood Pressure [Ri ght Arm] 153/105 H 138/80 Pulse Oximetry 94 99 Oxygen Delivery Me thod Room Air Room Air Oxygen Flow Rate Progress Note: A&P Assessment and plan (1) Acute cholecystitis: Problem details: -necrotizing with peritonitis. Likely postop ileus. -pain control; diet; dvt ppx per surgery Status: Acute Assessment and Plan: 87-year-old female s/p laparoscopic cholecystectomy for necrotizing cholecystitis POD 2. Patient is starting around the corner. She has expected ileus given the amount of inflammation she had. Will continue with NPO but she can have ice chips for comfort until return of bowel function. Patient is on antibiotics. Her WBC is coming down. Patient had an abdominal CT scan yesterday that confirmed presence of ileus. Patient's hemoglobin is only slightly down from yesterday so I think it is reasonable to restart her Eliquis. Patient needs to ambulate and physical therapy will be consulted to increase her ambulation. I discussed with the patient that 1 my partners will see her tomorrow.
--- NOTE | 2022-12-11 14:05 | PC.NURSE ---
Pt up in chair X 2 this shift. Pt's pain has ranged 8-10 through out shift. Managed by movement and PRN medication-see EMAR. Pt. has been sleeping through out most of shift.
--- NOTE | 2022-12-11 16:45 | PC.SOCIAL ---
Discharge planning- Received a phone call from Helen in therapy informing that pt recommendation is SNF for short term rehab. Charge nurse informed that pt would like a phone call on her cell phone vs. the hospital phone. Phone call to pt on her cell phone at [phone] to discuss discharge plans. Informed that therapy was recommending a short term rehab stay at SNF. Pt stated that she would prefer to go home with her daughter in [place]. Pt states she is visiting the area and is from [place]. Pt stated that she will only go to SNF if it is absolutely necessary. Informed pt that this worker will visit in person with her in the AM to discuss discharge plans and recommendations. Phone call to pt's daughter, Manuela, to discuss discharge plans. Manuela states that she is not able to provide 24 hour care in the home and requests SNF for pt. Manuela will discuss with pt jodi. Manuela states that when pt is in her home she does not want to move or make progress and she believes pt would make more progress with therapy in SNF. Informed Manuela that there are a lack of beds in the area and pts insurance ([employer]) is only accepted at certain SNF's. Manuela understands and is ok with this worker locating a SNF as close to [place] as possible. Social Work will follow up as necessary.
[2022-12-11] MEDS: APIXABAN 5 MG TABLET 2.5 MG PO (20:39)
[2022-12-11] MEDS: 0.9 % SODIUM CHLORIDE 250 ml IV (20:40)
[2022-12-11] MEDS: IPRAT-ALBUT 0.5-2.5 MG/3 ML NEB 1 NEB IH (20:40)
[2022-12-11 20:45] LABS: Potassium* 3.8 mmol/L (3.6-5.1)
--- NOTE | 2022-12-11 23:40 | PC.NURSE ---
Shift Note [id number]: Pt verbalizes flatus, she is tolerating sips/chips. Up to chair for 2 hours this afternoon. Expiratory rhonci, moist and coarse cough. Duoneb given PRN. BP's slightly hypertensive, rate no higher than 110.
[2022-12-12] VITALS (8 sets, daily range): BP systolic 122–153; BP diastolic 66–106; PULSE 71–105; RESP 20; TEMP 36.6–37.2; O2SAT 94–98; BMI 39.9
[2022-12-12] MEDS: HYDRALAZINE HCL 20 MG/ML inj 10 MG IVP (00:15)
[2022-12-12] MEDS: 5 % DEXTROSE IN LAC RINGER'S 1,000 ML 75 ML IV (00:54)
[2022-12-12] MEDS: PIPERACILLIN/TAZOBACTAM 3.375 GM in 0.9 % SODIUM CHLORIDE Mini-bag 100 ML IVPB ×4 (04:36→22:36)
[2022-12-12] MEDS: METOPROLOL TARTRATE 50 MG TABLET PO (06:20)
[2022-12-12] MEDS: SODIUM CHLORIDE 0.9 % (FLUSH) 10 ML SYRINGE 5 ML IVF ×2 (06:21→08:30)
[2022-12-12] MEDS: Fluticasone-Umeclidin-Vilanter [Trelegy Ellipta] 1 EACH IH (06:21)
[2022-12-12] MEDS: HYDROmorphone 0.5 mg/0.5 ml inj IVP ×5 (06:21→22:36)
[2022-12-12 06:48] LABS: Basophils Percent Auto 0.2 % (0.0-3.0); Eosinophils Percent Auto 0.7 % (0.0-7.0); Hematocrit 34.1 % (33.0-51.0); Immature Granulocytes Pct Auto 1.1 %; Lymphocytes Percent Auto 19.1 % (20-44); Mean Corpuscular HGB Conc 32 gm/dL (32-36); Mean Corpuscular Hemoglobin 28 pg (26-34); Mean Corpuscular Volume 86 fL (80-100); Monocytes Percent Auto 9.7 % (0.0-11.0); Neutrophils Percent Auto 69.2 % (42.0-72.0); Platelet Count* 357 K/uL (140-440); RDW Coefficient of Variation % 14.7 % (11.5-15.5); Red Blood Count 3.98 m/uL (4.00-5.20); White Blood Count* 15.05 K/uL (4.50-11.00)
[2022-12-12 06:53] LABS: Albumin* 2.7 g/dL (3.3-5.0); Chloride* 107 mmol/L (96-114); Sodium* 136 mmol/L (135-149)
[2022-12-12 06:54] LABS: Potassium* 3.4 mmol/L (3.6-5.1)
[2022-12-12 06:56] LABS: Aspartate Amino Transferase* 30 U/L (12-35); Bilirubin Direct* 0.3 mg/dL (0.0-0.5); Bilirubin Total* 0.7 mg/dL (0.1-1.5); Blood Urea Nitrogen* 20 mg/dL (7-30); Creatinine* 0.8 mg/dL (0.5-1.5); Est. Creatinine Clearance* 35.52; Estimated Glomerular Filt Rate 72 ml/min; Glucose* 113 mg/dL (60-115); Slide Review Reflex No; Total Protein* 5.5 g/dL (6.0-8.3)
[2022-12-12 06:57] LABS: Alanine Aminotransferase* 25 U/L (4-35); Alkaline Phosphatase* 189 U/L (40-150); Calcium* 7.8 mg/dL (8.4-10.6)
[2022-12-12 07:13] LABS: Carbon Dioxide* 26 mmol/L (20-32)
--- NOTE | 2022-12-12 07:47 | PC.NURSE ---
Pt is alert and oriented x3. Afebrile. Pt?denies pain, SOB, chest pain and N/V. Pt slept intermittently throughout night only waking during vitals. Abdominal dressing is CDI. Pt is up A1 with walker and gait belt. Pt is sips and chips and tolerating well.
[2022-12-12] MEDS: APIXABAN 5 MG TABLET 2.5 MG PO ×2 (09:11→21:30)
--- NOTE | 2022-12-12 09:18 | PM.GSPN ---
Subjective Subjective Date Seen: 12/12/22 Interval history: This morning yang is having quite a bit of abdominal pain on the right side which is rating around to her back. She states that this has been coming and going since surgery. She states that she has passed a very small amount of gas from below but also has had some burping as well. She says that she has some intermittent nausea. Exam Narrative: Exam Narrative: General: Patient appears somewhat uncomfortable on my exam. CV: Irregular Respiratory: Breathing is nonlabored on room air Abdomen: Protuberant. Appropriately tender for the postop state. Incisions without erythema. Drain site without significant drainage at this time Const: Vital Signs, click to edit/add: Vital Signs - 24 hr 12/11/22 11:10 12/11/22 15:00 12/11/22 15:00 Temperature 98.6 F 98.4 F Pulse Rate Pulse Rate [Pulse Oximeter] 86 94 94 Respiratory Rate 18 18 18 Blood Pressure [Ri ght Arm] 138/80 142/118 H Pulse Oximetry 99 98 Oxygen Delivery Me thod Room Air Room Air Oxygen Flow Rate 0 12/11/22 15:00 12/11/22 23:00 12/11/22 23:00 Temperature Pulse Rate 90 89 Pulse Rate [Pulse Oximeter] Respiratory Rate 20 Blood Pressure [Ri ght Arm] Pulse Oximetry Oxygen Delivery Me thod Oxygen Flow Rate 12/11/22 23:00 12/12/22 04:25 Temperature 98.2 F 97.9 F Pulse Rate Pulse Rate [Pulse Oximeter] 102 H 100 Respiratory Rate 20 20 Blood Pressure [Ri ght Arm] 173/113 H 148/100 H Pulse Oximetry 97 94 Oxygen Delivery Me thod Room Air Room Air Oxygen Flow Rate Labs/Imaging Labs Labs: White blood cell count is down slightly to 15 from 17. There is no longer a left shift. Progress Note: A&P Assessment and plan (1) Acute cholecystitis: Status: Acute (2) S/P laparoscopic cholecystectomy: Status: Acute (3) Ileus: Status: Acute Plan The patient is an 87-year-old female status post laparoscopic cholecystectomy 3 days ago for gangrenous cholecystitis. She has been in AFib with RVR which seems better controlled now. She is back on Eliquis. Her drain has been removed. White blood cell count is improved as well. She appeared to have an ileus intraoperatively and continues to have this noted on her CT scan. Therefore I would not advance her diet until she has antegrade bowel function. I encouraged the patient to go very slowly with any liquids she takes in an only taken sips for comfort. I explained that she will feel more nauseated the more she takes in if she is not having bowel movements.
[2022-12-12] MEDS: POTASSIUM CHLORIDE 10 MEQ/100 ML PIGGYBACK 100 MEQ IVPB ×4 (11:06→14:04)
[2022-12-12] MEDS: PANTOPRAZOLE SODIUM 40 MG INJ IVP (11:06)
--- NOTE | 2022-12-12 11:47 | P.IMPN_ITS ---
Progress Note: A&P Assessment and plan (1) Ileus: Status: Acute Assessment and Plan: discussed with surgery will gently and slowly advance diet to clear liquid today (2) S/P laparoscopic cholecystectomy: Status: Acute (3) Peritonitis: Problem details: -continue Zosyn Status: Acute (4) Hypokalemia: Problem details: potassium replacement ordered Status: Acute (5) CHF with unknown LVEF: Problem details: reviewed echo 09/13, normal EF. Status: Acute (6) Atrial fibrillation: Problem details: -rate controlled; eliquis resumed -resume aspirin tomorrow Status: Acute (7) COPD (chronic obstructive pulmonary disease): Problem details: -on room air Status: Acute (8) HTN (hypertension): Problem details: stable Status: Acute (9) CLL (chronic lymphocytic leukemia): Problem details: Under surveillance only. Has been reassured by Oncology in recent visits. Status: Acute Subjective Date Seen: 12/12/22 Interval history: patient passing gas no BM denies chest pain denies SOB minimal abd pain Exam Narrative: Exam Narrative: Gen: no acute distress HEENT: NCAT EOMI mmm CV: RRR normal s1 s2 Lungs: CTAB Abd: Soft,nt, nd Neuro: Alert, oriented, CN grossly intact; nonfocal screening?exam Psych: appropriate affect MSK: age appropriate muscle mass Ext+1 UE edema Const: Vital Signs, click to edit/add: Vital Signs - 24 hr 12/11/22 15:00 12/11/22 15:00 12/11/22 15:00 Temperature 98.4 F Pulse Rate 90 Pulse Rate [Left R adial] Pulse Rate [Pulse Oximeter] 94 94 Respiratory Rate 18 18 Blood Pressure [Ri ght Arm] 142/118 H Pulse Oximetry 98 Oxygen Delivery Me thod Room Air Oxygen Flow Rate 0 12/11/22 23:00 12/11/22 23:00 12/11/22 23:00 Temperature 98.2 F Pulse Rate 89 Pulse Rate [Left R adial] Pulse Rate [Pulse Oximeter] 102 H Respiratory Rate 20 20 Blood Pressure [Ri ght Arm] 173/113 H Pulse Oximetry 97 Oxygen Delivery Me thod Room Air Oxygen Flow Rate 12/12/22 04:25 12/12/22 07:45 12/12/22 07:00 Temperature 97.9 F 98 F Pulse Rate 95 Pulse Rate [Left R adial] 91 Pulse Rate [Pulse Oximeter] 100 91 Respiratory Rate 20 20 Blood Pressure [Ri ght Arm] 148/100 H 122/66 Pulse Oximetry 94 98 Oxygen Delivery Me thod Room Air Room Air Oxygen Flow Rate 12/12/22 11:00 Temperature 98 F Pulse Rate Pulse Rate [Left R adial] 71 Pulse Rate [Pulse Oximeter] 71 Respiratory Rate 20 Blood Pressure [Ri ght Arm] 128/70 Pulse Oximetry 98 Oxygen Delivery Me thod Room Air Oxygen Flow Rate Labs Labs: Laboratory Results - last 24 hr 12/11/22 12/12/22 12/12/22 20:21 05:58 05:58 WBC 15.05 H RBC 3.98 L Hgb 11.0 L Hct 34.1 MCV 86 MCH 28 MCHC 32 RDW Coeff of Marissa 14.7 Plt Count 357 Neut % (Auto) 69.2 Lymph % (Auto) 19.1 L [place] % (Auto) 9.7 Eos % (Auto) 0.7 Baso % (Auto) 0.2 Neut # (Auto) 10.40 H Lymph # (Auto) 2.90 [place] # (Auto) 1.50 H Eos # (Auto) 0.10 Baso # (Auto) 0.00 Sodium 136 Potassium 3.8 3.4 L Chloride 107 Carbon Dioxide 26 BUN 20 Creatinine 0.8 Estimated Creat Clear 35.52 Estimated GFR 72 Glucose 113 Calcium 7.8 L Total Bilirubin 0.7 Direct Bilirubin 0.3 AST 30 ALT 25 Alkaline Phosphatase 189 H Total Protein 5.5 L Albumin 2.7 L
--- NOTE | 2022-12-12 14:50 | PC.NURSE ---
Pt to advance slowly to CL diet. Tolerated orange jello. Pt has dilaudid 0.5 mg twice on day shift for discomfort. Eval by Dr. Story. IV zosyn infused w/o difficulty. New orders for IV protonix 40 mg and 4 bumps of 10Meq of Potassium IV for K+ of 3.4. When 4th dose of potassium completed pt is to have D5LR w/20 mEq of KCL at 50cc/hr. Pt has had some swelling noted in bilateral LE and left arm, fingers. IV site remains patent. Pt has slept between nursing interventions. Evaluated by PT and OT this am. Up to recliner for meals. Report will be given to oncoming shift RN. BP improving since admission.
[2022-12-12] MEDS: ATORVASTATIN CALCIUM 40 MG TABLET 80 MG PO (21:30)
[2022-12-12] MEDS: ONDANSETRON 2 MG/ML inj 4 MG IVP (22:35)
[2022-12-12] MEDS: 0.9 % SODIUM CHLORIDE 250 ml IV (22:37)
[2022-12-13] VITALS (8 sets, daily range): BP systolic 139–144; BP diastolic 64–93; PULSE 69–100; RESP 16–20; TEMP 36.6–37.5; O2SAT 94–98
[2022-12-13] MEDS: PIPERACILLIN/TAZOBACTAM 3.375 GM in 0.9 % SODIUM CHLORIDE Mini-bag 100 ML IVPB ×4 (04:43→22:07)
--- NOTE | 2022-12-13 05:07 | PC.NURSE ---
[id number]: Patient talkative and pleasant this shift. BS active and passing gas (per patient). Tolerating clears. Denies N/V. PRN Dilaudid x1 for abdominal pain. Patient continues to require encouragement to mobilize. Educated patient on importance of movement to stimulate bowel movement and build strength. A1/walker/GB. Independently using Aerobika and IS. Lap sites and R. anterior dressing C/D/I. Ildefonso patent. Afebrile.
[2022-12-13] MEDS: METOPROLOL TARTRATE 50 MG TABLET PO (06:42)
[2022-12-13] MEDS: Fluticasone-Umeclidin-Vilanter [Trelegy Ellipta] 1 EACH IH (06:42)
[2022-12-13 07:11] LABS: Basophils Percent Auto 0.3 % (0.0-3.0); Eosinophils Percent Auto 2.6 % (0.0-7.0); Hematocrit 33.1 % (33.0-51.0); Hemoglobin* 10.6 gm/dL (12.0-16.0); Immature Granulocytes Pct Auto 2.9 %; Lymphocytes Percent Auto 19.1 % (20-44); Mean Corpuscular HGB Conc 32 gm/dL (32-36); Mean Corpuscular Hemoglobin 28 pg (26-34); Mean Corpuscular Volume 86 fL (80-100); Monocytes Percent Auto 8.2 % (0.0-11.0); Neutrophils Percent Auto 66.9 % (42.0-72.0); Platelet Count* 332 K/uL (140-440); RDW Coefficient of Variation % 14.6 % (11.5-15.5); Red Blood Count 3.83 m/uL (4.00-5.20); White Blood Count* 14.48 K/uL (4.50-11.00)
[2022-12-13 07:30] LABS: Slide Review Reflex No
[2022-12-13 07:34] LABS: Chloride* 111 mmol/L (96-114); Potassium* 3.3 mmol/L (3.6-5.1); Sodium* 136 mmol/L (135-149)
[2022-12-13 07:37] LABS: Blood Urea Nitrogen* 13 mg/dL (7-30); Carbon Dioxide* 22 mmol/L (20-32); Creatinine* 0.6 mg/dL (0.5-1.5); Est. Creatinine Clearance* 35.52; Estimated Glomerular Filt Rate 88 ml/min; Glucose* 94 mg/dL (60-115)
[2022-12-13 07:38] LABS: Calcium* 7.2 mg/dL (8.4-10.6); Magnesium* 2.1 mg/dL (1.5-2.6); Phosphorus* 2.2 mg/dL (2.5-4.5)
[2022-12-13] MEDS: ONDANSETRON 2 MG/ML inj 4 MG IVP ×3 (08:47→20:38)
[2022-12-13] MEDS: HYDROmorphone 0.5 mg/0.5 ml inj IVP ×3 (08:48→20:38)
[2022-12-13] MEDS: APIXABAN 5 MG TABLET 2.5 MG PO ×2 (08:49→20:38)
[2022-12-13] MEDS: PANTOPRAZOLE SODIUM 40 MG INJ IVP (08:49)
[2022-12-13] MEDS: TORSEMIDE 5 MG TABLET 10 MG PO (08:50)
[2022-12-13] MEDS: ASPIRIN 81 MG TAB.CHEW PO (08:50)
--- NOTE | 2022-12-13 12:10 | PM.GSPN ---
Subjective Subjective Date Seen: 12/13/22 Interval history: Sofiya states that she feels ?not perky. She has been passing gas and has been tolerating clear diet. No nausea. She states that her pain is much better today. She has been working with therapies. He has not had a bowel movement yet. Exam Narrative: Exam Narrative: General: No acute distress CV: Irregular rhythm Respiratory: Clear bilaterally Abdomen: Protuberant. No erythema around incisions. Drain site changed today. No significant drainage or erythema there. Const: Vital Signs, click to edit/add: Vital Signs - 24 hr 12/12/22 15:00 12/12/22 15:00 12/12/22 15:00 Temperature 98.2 F Pulse Rate 89 Pulse Rate [Left R adial] 71 Pulse Rate [Pulse Oximeter] 72 72 Respiratory Rate 20 20 Blood Pressure [Ri ght Arm] 153/75 H Pulse Oximetry 98 Oxygen Delivery Me thod Room Air Oxygen Flow Rate 0 12/12/22 19:45 12/12/22 22:45 12/12/22 23:00 Temperature 98.1 F 98.9 F Pulse Rate 82 Pulse Rate [Left R adial] Pulse Rate [Pulse Oximeter] 98 105 H Respiratory Rate 20 20 Blood Pressure [Ri ght Arm] 151/106 H 131/81 Pulse Oximetry 98 96 Oxygen Delivery Me thod Room Air Room Air Oxygen Flow Rate 12/13/22 04:45 12/13/22 07:00 12/13/22 07:50 Temperature 98.4 F Pulse Rate 76 Pulse Rate [Left R adial] 98 Pulse Rate [Pulse Oximeter] 69 98 Respiratory Rate 20 16 Blood Pressure [Ri ght Arm] 140/64 H Pulse Oximetry 98 Oxygen Delivery Me thod Room Air Oxygen Flow Rate Labs/Imaging Labs Labs: White blood cell count is 14 from 15. Phos is 2.3 K+ 3.2 Progress Note: A&P Assessment and plan (1) S/P laparoscopic cholecystectomy: Status: Acute (2) Hypokalemia: Problem details: potassium replacement ordered Status: Acute (3) CLL (chronic lymphocytic leukemia): Problem details: Under surveillance only. Has been reassured by Oncology in recent visits. Status: Acute (4) Acute cholecystitis: Status: Acute (5) Atrial fibrillation with RVR: Problem details: Given 1 dose of IV diltiazem this morning on the floor followed by 1 p.o. dose of oral metoprolol 25 mg. I have this ordered Q 4 p.r.n. heart rate greater than 110. Status: Acute Plan The patient is a 87-year-old female who is postop day 4 from laparoscopic cholecystectomy for gangrenous cholecystitis. Bile Cultures are growing Enterococcus. Overall she appears to be doing much better today from a heart rate standpoint as well as her labs are improving and she is having slow return of bowel function. -continue clears until patient has a bowel movement. Then diet can be advanced as tolerated. -continue to trend labs. Recommend continuing Zosyn. Given CLL diagnosis white blood cell count may not return to normal, however would like to see this trending down before switching to oral antibiotics. -patient is anticoagulated for atrial fibrillation -SUNG powell
--- NOTE | 2022-12-13 14:40 | PC.NURSE ---
Pt eval by Dr. Fong, Dr. Mckinney, PT and OT. Pt received zofran and dilaudid twice on day shift. Tolerating small amts of CL w/o increased pain or nausea. Up to recliner for meals. IV Zosyn infused w/o difficulty. Fregoso discontinued at 1320 pm, 425cc of clear melanie emptied from drainage bag. Pt had some upper airway expiratory wheezes that cleared with aerobika/IS use. New order for calcium phosphorus infusion at 35cc/hr over 3 hours. Tele indicates atrial fibrillation which is patient's baseline. Pt aware she will now be walking in to the bathroom to void. No emesis or BMs yet today.
--- NOTE | 2022-12-13 14:45 | PC.NURSE ---
Amend. Potassium phosphates (not phosphorus charted in error) infusion 35cc/hr over 3 hours.
--- NOTE | 2022-12-13 16:42 | PC.NURSE ---
SHELLEY: Tele indicates atrial fibrillation with normal ventricular rate. Dtr Manuela present and sister Oralia present for a visit at bedside. Pt denies CP or SOB. Pt has been up to void 200cc since guardado catheter discontinued at 1320 pm. IV tubing changed for primary NS 250 bag and secondary tubing for IV Zosyn infusion. RN will change pt back to maintenance IVF at D5LR with 20 KCL @ 50cc/hr. Assisted with CL dinner order. Occasional upper airway wheezes noted when pt is in a deep sleep. Wheezes cleared with IS/Aerobika and TCDB with abdominal splinting reinforced. Report will be given to noc shift RN.
--- NOTE | 2022-12-13 17:42 | PC.NURSE ---
Pt up with SBA of one and GB to toilet. Passing flatus and small liquid stool visible at bottom of toilet, flakes of stool debris visible in the water. Void recorded for assistant shift supervisor I and O.
--- NOTE | 2022-12-13 18:44 | P.IMPN_ITS ---
Progress Note: A&P Assessment and plan (1) S/P laparoscopic cholecystectomy: Problem details: Gradually improved. Some postoperative ileus. Continue antibiotics 1 more day Status: Acute (2) Hypokalemia: Problem details: potassium replacement ordered . Hypophosphatemia also addressed Status: Acute (3) CLL (chronic lymphocytic leukemia): Problem details: Under surveillance only. Has been reassured by Oncology in recent visits. Status: Acute (4) Acute cholecystitis: Problem details: Status post cholecystectomy Status: Acute (5) Atrial fibrillation with RVR: Problem details: Treat with oral metoprolol. Switch to metoprolol succinate from tartrate. On anticoagulation. Unclear need for aspirin at this time. Status: Acute Plan Continue in-hospital for monitoring of postoperative status, ileus, management of atrial fibrillation, fluid and electrolytes Time Spent With Patient Total time spent: Total time spent today is 40 minutes, 25 minutes in coordination of care and discussing with patient and other providers management of postoperative ileus, atrial fibrillation, hypertension Subjective Date Seen: 12/13/22 Interval history: 87-year-old female seen in followup of acute cholecystitis, cholecystectomy and postoperative ileus. Patient reports generally getting better though does not feel better today than yesterday. She is not having shortness of breath or fever or cough. Her abdominal pain is unchanged. She is passing gas. She is tolerating clear liquid diet. Exam Narrative: Exam Narrative: She is alert and appears in no distress. Respirations are clear to auscultation. Cardiovascular: S1, S2, regular rate and rhythm. No murmur gallop or rub. Abdomen: Bowel sounds are present. Abdomen is soft with mild right upper quadrant tenderness consistent with her status post cholecystectomy and mild diffuse distension and tenderness. Extremities with 1+ edema bilaterally. Const: Vital Signs, click to edit/add: Vital Signs - 24 hr 12/12/22 19:45 12/12/22 22:45 12/12/22 23:00 Temperature 98.1 F 98.9 F Pulse Rate 82 Pulse Rate [Left R adial] Pulse Rate [Pulse Oximeter] 98 105 H Respiratory Rate 20 20 Blood Pressure [Ri ght Arm] 151/106 H 131/81 Pulse Oximetry 98 96 Oxygen Delivery Me thod Room Air Room Air 12/13/22 04:45 12/13/22 07:00 12/13/22 07:50 Temperature 98.4 F Pulse Rate 76 Pulse Rate [Left R adial] 98 Pulse Rate [Pulse Oximeter] 69 98 Respiratory Rate 20 16 Blood Pressure [Ri ght Arm] 140/64 H Pulse Oximetry 98 Oxygen Delivery Me thod Room Air 12/13/22 11:10 12/13/22 15:25 12/13/22 15:25 Temperature 98.1 F 99.5 F Pulse Rate Pulse Rate [Left R adial] 99 99 Pulse Rate [Pulse Oximeter] 99 99 99 Respiratory Rate 20 20 20 Blood Pressure [Ri ght Arm] 139/93 H 141/84 H Pulse Oximetry 98 94 Oxygen Delivery Me thod Room Air Room Air 12/13/22 15:13 Temperature Pulse Rate 95 Pulse Rate [Left R adial] Pulse Rate [Pulse Oximeter] Respiratory Rate Blood Pressure [Ri ght Arm] Pulse Oximetry Oxygen Delivery Me thod Documenting provider has reviewed patient's vital signs: yes Labs Labs: Laboratory Results - last 24 hr 12/13/22 12/13/22 06:23 06:23 WBC 14.48 H RBC 3.83 L Hgb 10.6 L Hct 33.1 MCV 86 MCH 28 MCHC 32 RDW Coeff of Marissa 14.6 Plt Count 332 Neut % (Auto) 66.9 Lymph % (Auto) 19.1 L [place] % (Auto) 8.2 Eos % (Auto) 2.6 Baso % (Auto) 0.3 Neut # (Auto) 9.70 H Lymph # (Auto) 2.80 [place] # (Auto) 1.20 H Eos # (Auto) 0.40 Baso # (Auto) 0.00 Sodium 136 Potassium 3.3 L Chloride 111 Carbon Dioxide 22 BUN 13 Creatinine 0.6 Estimated Creat Clear 35.52 Estimated GFR 88 Glucose 94 Calcium 7.2 L Phosphorus 2.2 L Magnesium 2.1
[2022-12-13] MEDS: ATORVASTATIN CALCIUM 40 MG TABLET 80 MG PO (20:39)
[2022-12-13] MEDS: SODIUM CHLORIDE 0.9 % (FLUSH) 10 ML SYRINGE 5 ML IVF (20:39)
[2022-12-14] VITALS (9 sets, daily range): BP systolic 112–143; BP diastolic 62–98; PULSE 78–119; RESP 16–20; TEMP 36.1–37.3; O2SAT 94–96
[2022-12-14] MEDS: HYDROmorphone 0.5 mg/0.5 ml inj IVP ×4 (03:18→19:20)
[2022-12-14] MEDS: SODIUM CHLORIDE 0.9 % (FLUSH) 10 ML SYRINGE 5 ML IVF ×2 (03:18→09:37)
[2022-12-14] MEDS: PIPERACILLIN/TAZOBACTAM 3.375 GM in 0.9 % SODIUM CHLORIDE Mini-bag 100 ML IVPB ×4 (05:07→22:24)
--- NOTE | 2022-12-14 05:46 | PC.NURSE ---
Shift note: Pt's condition continue to improve. Doing well with ambulation with A1, walker and GB. Tolerating clear liquid diet considerable well with N/V and abd pain. Pt has greenish color smear of stool in the brief and continuous to pass gas. Pain has been rated between 2 and 6 which was effectively managed with Deluded. Incisional sites appears dry and clean, no discharges noted. Vitally stable.
[2022-12-14] MEDS: Fluticasone-Umeclidin-Vilanter [Trelegy Ellipta] 1 EACH IH (06:21)
[2022-12-14 07:38] LABS: Basophils Percent Auto 0.2 % (0.0-3.0); Eosinophils Percent Auto 2.7 % (0.0-7.0); Hematocrit 32.4 % (33.0-51.0); Hemoglobin* 10.4 gm/dL (12.0-16.0); Immature Granulocytes Pct Auto 2.1 %; Lymphocytes Percent Auto 17.6 % (20-44); Mean Corpuscular HGB Conc 32 gm/dL (32-36); Mean Corpuscular Hemoglobin 28 pg (26-34); Mean Corpuscular Volume 87 fL (80-100); Monocytes Percent Auto 7.5 % (0.0-11.0); Neutrophils Percent Auto 69.9 % (42.0-72.0); Platelet Count* 356 K/uL (140-440); RDW Coefficient of Variation % 14.7 % (11.5-15.5); Red Blood Count 3.74 m/uL (4.00-5.20); White Blood Count* 14.57 K/uL (4.50-11.00)
[2022-12-14 07:43] LABS: Slide Review Reflex No
[2022-12-14 07:52] LABS: Chloride* 110 mmol/L (96-114); Potassium* 3.2 mmol/L (3.6-5.1); Sodium* 136 mmol/L (135-149)
[2022-12-14 07:55] LABS: Blood Urea Nitrogen* 8 mg/dL (7-30); Carbon Dioxide* 23 mmol/L (20-32); Creatinine* 0.6 mg/dL (0.5-1.5); Est. Creatinine Clearance* 35.52; Estimated Glomerular Filt Rate 88 ml/min
[2022-12-14 07:56] LABS: Glucose* 107 mg/dL (60-115); Phosphorus* 2.6 mg/dL (2.5-4.5)
[2022-12-14 07:58] LABS: C Reactive Protein* 3.6 mg/dL (0.5-1.0)
[2022-12-14] MEDS: PANTOPRAZOLE SODIUM 40 MG INJ IVP (09:33)
[2022-12-14] MEDS: TORSEMIDE 5 MG TABLET 10 MG PO (09:34)
[2022-12-14] MEDS: APIXABAN 5 MG TABLET 2.5 MG PO ×2 (09:34→20:34)
[2022-12-14] MEDS: METOPROLOL SUCCINATE (XL) 50 MG TAB PO (09:35)
--- NOTE | 2022-12-14 14:10 | PM.GSPN ---
Subjective Subjective Date Seen: 12/14/22 Interval history: Sofiya feels about the same today. She states she had a very large liquid bowel movement today. She denies significant abdominal pain. No nausea. Tolerating clears well. Would like to advance to a full liquid diet. Exam Narrative: Exam Narrative: General: No acute distress Abdomen: Protuberant. Wounds are without erythema. Appropriately tender for the postop state. Const: Vital Signs, click to edit/add: Vital Signs - 24 hr 12/13/22 15:25 12/13/22 15:25 12/13/22 15:13 Temperature 99.5 F Pulse Rate 95 Pulse Rate [Left R adial] 99 99 Pulse Rate [Pulse Oximeter] 99 99 Respiratory Rate 20 20 Blood Pressure [Ri ght Arm] 141/84 H Pulse Oximetry 94 Oxygen Delivery Me thod Room Air 12/13/22 19:00 12/13/22 23:00 12/13/22 23:00 Temperature 97.9 F Pulse Rate 100 Pulse Rate [Left R adial] 99 Pulse Rate [Pulse Oximeter] 98 98 Respiratory Rate 20 20 Blood Pressure [Ri ght Arm] 144/77 H Pulse Oximetry 98 Oxygen Delivery Me thod Room Air 12/13/22 23:00 12/14/22 03:00 12/14/22 07:22 Temperature 97.9 F 97.8 F Pulse Rate 96 Pulse Rate [Left R adial] Pulse Rate [Pulse Oximeter] 96 113 H Respiratory Rate 20 20 Blood Pressure [Ri ght Arm] 141/87 H 137/77 Pulse Oximetry 98 96 Oxygen Delivery Me thod Room Air Room Air 12/14/22 09:00 12/14/22 12:09 Temperature 97 F L 97 F L Pulse Rate Pulse Rate [Left R adial] Pulse Rate [Pulse Oximeter] 96 84 Respiratory Rate 16 16 Blood Pressure [Ri ght Arm] 137/71 Pulse Oximetry 95 95 Oxygen Delivery Me thod Room Air Room Air Labs/Imaging Labs Labs: White blood cell count remains elevated at 14. CRP is down today. Progress Note: A&P Assessment and plan (1) S/P laparoscopic cholecystectomy: Problem details: Gradually improved. Some postoperative ileus. Continue antibiotics 1 more day Status: Acute (2) Atrial fibrillation with RVR: Problem details: Treat with oral metoprolol. Switch to metoprolol succinate from tartrate. On anticoagulation. Unclear need for aspirin at this time. Status: Acute (3) CLL (chronic lymphocytic leukemia): Problem details: Under surveillance only. Has been reassured by Oncology in recent visits. Status: Acute (4) Acute cholecystitis: Problem details: Status post cholecystectomy Status: Acute Plan Patient is an 87-year-old female who is postop day 5 status post laparoscopic cholecystectomy for acute cholecystitis. She is recovering appropriately. She still has a elevated white blood cell count. The left shift is improving. -okay to advance diet to full liquid diet and to regular diet as patient tolerates -if patient continues to have diarrhea recommend checking C diff -would continue antibiotics for 7 days
--- NOTE | 2022-12-14 15:57 | ONC.NURNOTE ---
pleasent alert and orinted. states feeling stronger than yest. vs wnl. ls cl. heart reg. except heart rate increases to 130 when up to restroom but quickly drops to 90 at rest and 80 at sleep.no increase in resp or SOB. enc tcdb IS. Dilaudid x2 for abd discomfort with relief. tamera 2 chi broth and jello this am. drinking water. denies nausea. abd soft. poss bsx4. poss flatus. large liquid stool in the afternoon. 400cc dark green. [id number]. enc teds and compression hoses. pt states chronic leg pain. heating pad to neck and repositioned for comfort. pt up to restroom to void and up to chair at meal time. up with one walker, belt SBA.
--- NOTE | 2022-12-14 16:09 | PM.IMPN1 ---
Progress Note: A&P Assessment and plan (1) S/P laparoscopic cholecystectomy: Problem details: Gradually improved. Some postoperative ileus. Continue antibiotics 1 more day Status: Acute (2) Atrial fibrillation with RVR: Problem details: Treat with oral metoprolol. Switch to metoprolol succinate from tartrate. On anticoagulation. Unclear need for aspirin at this time. Status: Acute (3) CLL (chronic lymphocytic leukemia): Problem details: Under surveillance only. Has been reassured by Oncology in recent visits. Status: Acute (4) Acute cholecystitis: Problem details: Status post cholecystectomy. Postoperative ileus appears to have resolved. Advanced diet. Status: Acute Plan Continue in hospital pending patient's ability to tolerate a normal diet and to ambulate. Continue antibiotics per surgery. Time Spent With Patient Total time spent: Total time spent today is 35 minutes, 25 minutes in coordination of care discussing with patient family and other providers ongoing management of postoperative care debility. Subjective Date Seen: 12/14/22 Interval history: 87-year-old female seen in followup of cholecystitis with cholecystectomy. Patient had a large loose stool today. She reports still some abdominal pain consistent with her postoperative status. She has been on clear liquids and now advancing to full liquids. She reports no shortness of breath or chest pain or fever. She remains on Zosyn. She was up walking with therapy with some standby assistance noting that she is weak and slow. Exam Narrative: Exam Narrative: She is alert and appears in no distress. She is oriented to her circumstances. Respirations are clear to auscultation. Cardiovascular: S1, S2, relatively regular rate and rhythm. Abdomen: Bowel sounds are active. Abdomen is soft with mild in tenderness around the incision consistent with her postoperative status. No peritonitis. Extremities with 1 to 2+ edema in both legs. Edema in her left upper extremity related to her infiltrated IV is improved. Const: Vital Signs, click to edit/add: Vital Signs - 24 hr 12/13/22 19:00 12/13/22 23:00 12/13/22 23:00 Temperature 97.9 F Pulse Rate 100 Pulse Rate [Left R adial] 99 Pulse Rate [Pulse Oximeter] 98 98 Respiratory Rate 20 20 Blood Pressure [Ri ght Arm] 144/77 H Pulse Oximetry 98 Oxygen Delivery Me thod Room Air 12/13/22 23:00 12/14/22 03:00 12/14/22 07:22 Temperature 97.9 F 97.8 F Pulse Rate 96 Pulse Rate [Left R adial] Pulse Rate [Pulse Oximeter] 96 113 H Respiratory Rate 20 20 Blood Pressure [Ri ght Arm] 141/87 H 137/77 Pulse Oximetry 98 96 Oxygen Delivery Me thod Room Air Room Air 12/14/22 09:00 12/14/22 12:09 12/14/22 14:00 Temperature 97 F L 97 F L Pulse Rate Pulse Rate [Left R adial] Pulse Rate [Pulse Oximeter] 96 84 Respiratory Rate 16 16 Blood Pressure [Oh ght Arm] 137/71 130/70 Pulse Oximetry 95 95 Oxygen Delivery Me thod Room Air Room Air Documenting provider has reviewed patient's vital signs: yes Labs Labs: Laboratory Results - last 24 hr 12/14/22 12/14/22 06:18 06:18 WBC 14.57 H RBC 3.74 L Hgb 10.4 L Hct 32.4 L MCV 87 MCH 28 MCHC 32 RDW Coeff of Marissa 14.7 Plt Count 356 Neut % (Auto) 69.9 Lymph % (Auto) 17.[address] [place] % (Auto) 7.5 Eos % (Auto) 2.7 Baso % (Auto) 0.2 Neut # (Auto) 10.20 H Lymph # (Auto) 2.60 [place] # (Auto) 1.10 H Eos # (Auto) 0.40 Baso # (Auto) 0.00 Sodium 136 Potassium 3.2 L Chloride 110 Carbon Dioxide 23 BUN 8 Creatinine 0.6 Estimated Creat Clear 35.52 Estimated GFR 88 Glucose 107 Calcium 7.0 L Phosphorus 2.6 C-Reactive Protein 3.6 H
[2022-12-14] MEDS: 0.9 % SODIUM CHLORIDE 250 ml IV (16:13)
[2022-12-14] MEDS: ACETAMINOPHEN 325 MG TABLET 650 MG PO (19:19)
[2022-12-14] MEDS: ONDANSETRON 2 MG/ML inj 4 MG IVP (19:28)
[2022-12-14] MEDS: ATORVASTATIN CALCIUM 40 MG TABLET 80 MG PO (20:34)
--- NOTE | 2022-12-14 23:00 | PC.NURSE ---
Shift [id number]- Patient complains of neck pain throughout shift. Heat pad applied, repositioned and PRN pain medication administered. Tonight she states her neck feels better than it did. Neck pain is more bothersome than abdominal pain- per her. She is tolerating full liquid diet without issue. Up with walker, gait belt and assist of 1, and voiding often. Surgical sites, clean dry and intact.
[2022-12-15] MEDS: HYDROmorphone 0.5 mg/0.5 ml inj IVP ×2 (00:37→07:06)
[2022-12-15] MEDS: ONDANSETRON 2 MG/ML inj 4 MG IVP ×2 (00:50→07:06)
[2022-12-15 04:22] VITALS: PULSE 99
[2022-12-15] MEDS: PIPERACILLIN/TAZOBACTAM 3.375 GM in 0.9 % SODIUM CHLORIDE Mini-bag 100 ML IVPB (04:28)
[2022-12-15 04:30] VITALS: BP 143/91; PULSE 98; RESP 18; TEMP 37.1; O2SAT 95
[2022-12-15 07:00] VITALS: BP 126/84; PULSE 86; PULSE 89; RESP 18; TEMP 37.2; O2SAT 98
[2022-12-15] MEDS: Fluticasone-Umeclidin-Vilanter [Trelegy Ellipta] 1 EACH IH (07:06)
--- NOTE | 2022-12-15 07:51 | PC.NURSE ---
Shift note: The abdominal lap sites x4 has been C/D/I. Bowel sounds active in all quadrants. The pt has been tolerated full liquid diet. The pt had large black loose stool this AM at 0600- Dr Fong was notified. The pt has been C/O mild abdominal pain- the pain has been managed with PRN pain medication. Up to the BR with a walker and gait belt- short of breath with activity. Denied chest pain and other acute distress.
--- NOTE | 2022-12-15 09:10 | PM.GSPN ---
Subjective Subjective Date Seen: 12/15/22 Interval history: Patient is recovering well. She continues to take Dilaudid for pain but her pain is well controlled. She had a bowel movement today that she describes as ?black?. She denies any nausea or vomiting. She tolerated full liquid. She does not want to advance to regular diet because she gets ?to full? with full liquid diet. Patient ambulated a little bit in the room but needs a walker and support for ambulation. Exam Narrative: Exam Narrative: Abdomen is soft, not distended, minimally tender to palpation in the right mid abdomen but nowhere else. Laparoscopic incisions are healing well. The drain site with no surrounding erythema. Const: Vital Signs, click to edit/add: Vital Signs - 24 hr 12/14/22 12:09 12/14/22 14:00 12/14/22 16:00 Temperature 97 F L 97.1 F L Pulse Rate Pulse Rate [Left R adial] Pulse Rate [Pulse Oximeter] 84 119 H Respiratory Rate 16 18 Blood Pressure [Ri ght Arm] 130/70 112/92 H Pulse Oximetry 95 95 Oxygen Delivery Me thod Room Air Room Air Oxygen Flow Rate 12/14/22 16:22 12/14/22 19:04 12/14/22 23:40 Temperature 98.6 F Pulse Rate 99 Pulse Rate [Left R adial] 78 Pulse Rate [Pulse Oximeter] 90 78 Respiratory Rate 18 18 Blood Pressure [Ri ght Arm] 127/62 Pulse Oximetry 94 Oxygen Delivery Me thod Room Air Oxygen Flow Rate 12/14/22 23:40 12/15/22 04:22 12/15/22 04:30 Temperature 99.1 F 98.8 F Pulse Rate 99 Pulse Rate [Left R adial] 78 98 Pulse Rate [Pulse Oximeter] 78 98 Respiratory Rate 18 18 Blood Pressure [Ri ght Arm] 143/98 H 143/91 H Pulse Oximetry 96 95 Oxygen Delivery Me thod Room Air Room Air Oxygen Flow Rate 0 0 12/15/22 07:00 Temperature 98.9 F Pulse Rate Pulse Rate [Left R adial] Pulse Rate [Pulse Oximeter] 86 Respiratory Rate 18 Blood Pressure [Ri ght Arm] 126/84 Pulse Oximetry 98 Oxygen Delivery Me thod Room Air Oxygen Flow Rate Progress Note: A&P Assessment and plan (1) S/P laparoscopic cholecystectomy: Status: Acute Assessment and Plan: 87-year-old female s/p laparoscopic cholecystectomy for necrotizing cholecystitis POD 6. Overall patient is improving very well. She continues to have mildly elevated WBC but no neutrophilia. Patient does have a history of CLL that might play part of and her elevated WBC. She stated that she had black stool today. Patient's hemoglobin has been stable in last couple days. She is on Eliquis. We will continue to monitor. Patient can advance to regular diet. We will switch her IV pain medication to p.o.. Patient's antibiotics can be stopped today since this will complete a 7 day course of a the antibiotics. From surgery standpoint patient is ready to discharge home. However, she needs lot of help with ambulation and may benefit from long-term care. This was discussed with the hospitalist.
[2022-12-15] MEDS: TORSEMIDE 5 MG TABLET 10 MG PO (09:57)
[2022-12-15] MEDS: METOPROLOL SUCCINATE (XL) 50 MG TAB PO (09:57)
[2022-12-15] MEDS: APIXABAN 5 MG TABLET 2.5 MG PO ×2 (09:58→20:35)
[2022-12-15 11:00] VITALS: BP 119/93; PULSE 102; RESP 18; TEMP 37.1; O2SAT 93
[2022-12-15 11:52] LABS: Basophils Percent Auto 0.1 % (0.0-3.0); Eosinophils Percent Auto 1.6 % (0.0-7.0); Hematocrit 33.2 % (33.0-51.0); Hemoglobin* 10.6 gm/dL (12.0-16.0); Immature Granulocytes Pct Auto 1.1 %; Lymphocytes Percent Auto 12.9 % (20-44); Mean Corpuscular HGB Conc 32 gm/dL (32-36); Mean Corpuscular Hemoglobin 28 pg (26-34); Mean Corpuscular Volume 87 fL (80-100); Monocytes Percent Auto 7.2 % (0.0-11.0); Neutrophils Percent Auto 77.1 % (42.0-72.0); Platelet Count* 362 K/uL (140-440); RDW Coefficient of Variation % 14.8 % (11.5-15.5); Red Blood Count 3.82 m/uL (4.00-5.20); White Blood Count* 14.11 K/uL (4.50-11.00)
[2022-12-15 12:03] LABS: Chloride* 106 mmol/L (96-114); Sodium* 136 mmol/L (135-149)
[2022-12-15 12:05] LABS: Creatinine* 0.7 mg/dL (0.5-1.5); Est. Creatinine Clearance* 35.52; Estimated Glomerular Filt Rate 85 ml/min; Slide Review Reflex No
[2022-12-15 12:06] LABS: Blood Urea Nitrogen* 5 mg/dL (7-30); Calcium* 6.9 mg/dL (8.4-10.6); Carbon Dioxide* 26 mmol/L (20-32); Glucose* 116 mg/dL (60-115)
[2022-12-15 12:15] LABS: Potassium* 2.9 mmol/L (3.6-5.1)
[2022-12-15] MEDS: POTASSIUM BICARB 25 MEQ EFFERVESCENT TAB PO ×4 (13:36→23:16)
[2022-12-15] MEDS: TORSEMIDE 20 MG TABLET 40 MG PO (13:36)
[2022-12-15 15:00] VITALS: BP 111/46; PULSE 104; PULSE 90; RESP 20; TEMP 36.8; O2SAT 94
--- NOTE | 2022-12-15 15:27 | PC.SOCIAL ---
Met with pt. to discuss discharge plans. Pt. is in agreement she needs a short-term rehab bed. Pt. wanted me to talk to her daughter to discuss where for placement as she would be doing the driving. Spoke with pt.'s daughter Manuela @ [phone] who understands placement is limited due to pt. having Human insurance. [facility] has a shared female bed and is assessing. A message was left with [facility] on availability and pt.'s information has been sent to assess. [facility] in [place] is full for the week.
[2022-12-15] MEDS: ACETAMINOPHEN 325 MG TABLET 650 MG PO (16:26)
--- NOTE | 2022-12-15 16:43 | PM.IMPN1 ---
Progress Note: A&P Assessment and plan (1) S/P laparoscopic cholecystectomy: Problem details: Doing well. Status: Acute (2) Volume overload: Problem details: Weight is up. Increased torsemide today and monitor. Status: Acute (3) Hypokalemia: Problem details: Increased potassium supplementation and monitor Status: Acute (4) Ileus: Problem details: Resolved Status: Acute (5) Peritonitis: Problem details: Resolved Status: Acute (6) CLL (chronic lymphocytic leukemia): Problem details: Under surveillance only. Has been reassured by Oncology in recent visits. Status: Acute (7) HTN (hypertension): Problem details: stable Status: Acute (8) COPD (chronic obstructive pulmonary disease): Problem details: -on room air. Doing well Status: Acute (9) Atrial fibrillation: Problem details: -rate controlled; eliquis resumed Status: Acute (10) Acute cholecystitis: Problem details: Status post cholecystectomy. Postoperative ileus appears to have resolved. Advanced diet. Status: Acute (11) Physical deconditioning: Problem details: Patient has difficulty with mobility. Continue therapy. May need senior living rehab before returning home. Status: Acute Plan Continue in-hospital to monitor and manage above problems, especially the addressing fluid and electrolytes. Time Spent With Patient Total time spent: Total time spent today is 40 minutes, 30 minutes in coordination of care discussing with patient other providers ongoing evaluation management nutrition, hydration, electrolytes and recovery from surgery Subjective Date Seen: 12/15/22 Interval history: 87-year-old female seen in followup of cholecystitis with cholecystectomy. Patient had another large loose stool today. She reports it was dark. Guaiac is pending. She reports still some abdominal pain consistent with her postoperative status. She has been on clear liquids and now advancing to full liquids. She reports she is concerned about eating solid food because she feels like it gets stuck in her throat. This is a new problem that was not present prior to her hospitalization. She has not had vomiting. She feels like she has abdominal bloating. Per Dr. Zarate will discontinue Zosyn today. Her weight is up several lb in the last few days. She was up walking with therapy with some standby assistance noting that she is weak and slow. Exam Narrative: Exam Narrative: She is alert and appears in no distress. Respirations are clear to auscultation. She has an occasional basilar crackle. Cardiovascular: S1, S2, regular rate and rhythm. Abdomen: Bowel sounds active. Abdomen has minimal tenderness around her incisions. No redness or drainage. Extremities with 2+ edema. Const: Vital Signs, click to edit/add: Vital Signs - 24 hr 12/14/22 19:04 12/14/22 23:40 12/14/22 23:40 Temperature 98.6 F 99.1 F Pulse Rate Pulse Rate [Left R adial] 78 78 Pulse Rate [Pulse Oximeter] 90 78 78 Respiratory Rate 18 18 18 Blood Pressure [Ri ght Arm] 127/62 143/98 H Pulse Oximetry 94 96 Oxygen Delivery Me thod Room Air Room Air Oxygen Flow Rate 0 12/15/22 04:22 12/15/22 04:30 12/15/22 07:00 Temperature 98.8 F 98.9 F Pulse Rate 99 Pulse Rate [Left R adial] 98 Pulse Rate [Pulse Oximeter] 98 86 Respiratory Rate 18 18 Blood Pressure [Ri ght Arm] 143/91 H 126/84 Pulse Oximetry 95 98 Oxygen Delivery Me thod Room Air Room Air Oxygen Flow Rate 0 12/15/22 07:00 12/15/22 07:00 12/15/22 11:00 Temperature 98.7 F Pulse Rate 89 Pulse Rate [Left R adial] Pulse Rate [Pulse Oximeter] 86 102 H Respiratory Rate 18 Blood Pressure [Ri ght Arm] 119/93 H Pulse Oximetry 93 Oxygen Delivery Me thod Room Air Oxygen Flow Rate 12/15/22 15:00 Temperature 98.3 F Pulse Rate Pulse Rate [Left R adial] Pulse Rate [Pulse Oximeter] 90 Respiratory Rate 20 Blood Pressure [Ri ght Arm] 111/46 L Pulse Oximetry 94 Oxygen Delivery Me thod Room Air Oxygen Flow Rate Documenting provider has reviewed patient's vital signs: yes Labs Labs: Laboratory Results - last 24 hr 12/15/22 12/15/22 11:42 11:42 WBC 14.11 H RBC 3.82 L Hgb 10.6 L Hct 33.2 MCV 87 MCH 28 MCHC 32 RDW Coeff of Marissa 14.8 Plt Count 362 Neut % (Auto) 77.1 H Lymph % (Auto) 12.9 L [place] % (Auto) 7.2 Eos % (Auto) 1.6 Baso % (Auto) 0.1 Neut # (Auto) 10.90 H Lymph # (Auto) 1.80 [place] # (Auto) 1.00 H Eos # (Auto) 0.20 Baso # (Auto) 0.00 Sodium 136 Potassium 2.9 L* Chloride 106 Carbon Dioxide 26 BUN 5 L Creatinine 0.7 Estimated Creat Clear 35.52 Estimated GFR 85 Glucose 116 H Calcium 6.9 L
[2022-12-15] MEDS: HYDROmorphone 2 MG TABLET PO (18:00)
[2022-12-15 18:51] LABS: C.Difficile Negative (Negative); CDIFFEPI 027 PRESUMPTIVE NEGATIVE (Negative)
--- NOTE | 2022-12-15 19:49 | PC.NURSE ---
Pt is alert and oriented x3. Afebrile. Pt reports 6/10 pain in abdomen, pain managed with PRN medications. Pt reports SOB with movement. Pt denies chest pain and N/V. Pt slept intermittently throughout night only waking during vitals. Abdominal dressing is CDI. Pt is up A1 with walker and gait belt. Pt is tolerating a full liquid diet. GUAIC positive. C-Diff negative. ?
[2022-12-15 20:31] VITALS: BP 141/76; PULSE 107; RESP 20; TEMP 36.9; O2SAT 94
[2022-12-15] MEDS: ONDANSETRON ODT 4 MG TAB PO (20:35)
[2022-12-15] MEDS: ATORVASTATIN CALCIUM 40 MG TABLET 80 MG PO (20:35)
[2022-12-15 22:16] LABS: Potassium* 3.2 mmol/L (3.6-5.1)
[2022-12-16] VITALS (8 sets, daily range): BP systolic 105–131; BP diastolic 55–92; PULSE 82–113; RESP 18–20; TEMP 36.6–37.3; O2SAT 92–99
[2022-12-16] MEDS: POTASSIUM BICARB 25 MEQ EFFERVESCENT TAB PO (02:02)
[2022-12-16] MEDS: Fluticasone-Umeclidin-Vilanter [Trelegy Ellipta] 1 EACH IH (07:01)
[2022-12-16 07:02] LABS: Basophils Percent Auto 0.1 % (0.0-3.0); Eosinophils Percent Auto 0.5 % (0.0-7.0); Hematocrit 34.6 % (33.0-51.0); Hemoglobin* 11.4 gm/dL (12.0-16.0); Immature Granulocytes Pct Auto 0.8 %; Lymphocytes Percent Auto 12.2 % (20-44); Mean Corpuscular HGB Conc 33 gm/dL (32-36); Mean Corpuscular Hemoglobin 28 pg (26-34); Mean Corpuscular Volume 85 fL (80-100); Monocytes Percent Auto 5.8 % (0.0-11.0); Neutrophils Percent Auto 80.6 % (42.0-72.0); Platelet Count* 443 K/uL (140-440); RDW Coefficient of Variation % 14.7 % (11.5-15.5); Red Blood Count 4.08 m/uL (4.00-5.20); White Blood Count* 17.29 K/uL (4.50-11.00)
[2022-12-16] MEDS: OMEPRAZOLE 20 MG CAPSULE DR PO ×2 (07:02→20:38)
[2022-12-16 07:17] LABS: Slide Review Reflex No
[2022-12-16 07:18] LABS: Chloride* 97 mmol/L (96-114); Sodium* 134 mmol/L (135-149)
[2022-12-16 07:21] LABS: Carbon Dioxide* 30 mmol/L (20-32); Creatinine* 0.8 mg/dL (0.5-1.5); Est. Creatinine Clearance* 35.52; Estimated Glomerular Filt Rate 72 ml/min
[2022-12-16 07:22] LABS: Blood Urea Nitrogen* 5 mg/dL (7-30); Calcium* 6.6 mg/dL (8.4-10.6); Glucose* 98 mg/dL (60-115); Magnesium* 1.4 mg/dL (1.5-2.6)
[2022-12-16 07:26] LABS: Potassium* 2.5 mmol/L (3.6-5.1)
--- NOTE | 2022-12-16 07:59 | CRLHL7_ITS ---
For Patients: As a result of the Century Cures Act, medical imaging exams and procedure reports are released immediately into your electronic medical record. You may view this report before your referring provider. If you have questions, please contact your health care provider. INDICATION: 87 year-old female. Dysphagia. Sensation of food sticking in the esophagus. TECHNIQUE: Limited single-contrast esophagram. FINDINGS: The study is somewhat limited as the patient is non ambulatory and cannot stand. The patient was imaged in the semi upright position. Thin barium was administered. No esophageal primary stripping wave. Findings should reflect a primary esophageal motility disorder. No stricture, mass, or obstruction. Poor/incomplete emptying of the esophagus in the semi upright position. No hernia confidently identified. The stomach is incompletely opacified but grossly unremarkable where seen. 2 minutes 29 seconds fluoroscopy time utilized. IMPRESSION: 1. Absent esophageal peristalsis. A standing column of barium was identified throughout most of the examination. 2. 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 3. No definite stricture mass or obstruction. Dictated by Eitan Polo MD @ 12/16/2022 11:18:27 AM (Electronically Signed)
--- NOTE | 2022-12-16 09:49 | PM.GSPN ---
Subjective Subjective Date Seen: 12/16/22 Interval history: Patient is doing well overall. She denies abdominal pain. She had multiple bowel movements yesterday. She is having issues with eating or drinking because the food gets stuck in her chest. Patient has had these symptoms for the last several months. Patient ambulated multiple times to the bathroom but not in the hallway. Patient also sustained a right volar forearm burn from a heating pad. She states that she accidentally left her arm over the heating pad for too long. Exam Narrative: Exam Narrative: Abdomen is soft, not distended, not tender to palpation. Laparoscopic incisions are healing well with no surrounding erythema. There is Resolving ecchymosis near the umbilical incision. Right arm: In the right volar forearm there is an area of burn that appears as edematous skin with no actual blistering but appearance is similar to blistering. This is most likely first or early second-degree burn. Const: Vital Signs, click to edit/add: Vital Signs - 24 hr 12/15/22 11:00 12/15/22 15:00 12/15/22 15:00 Temperature 98.7 F 98.3 F Pulse Rate [Left R adial] 104 H Pulse Rate [Pulse Oximeter] 102 H 90 Respiratory Rate 18 20 20 Blood Pressure [Ri ght Arm] 119/93 H 111/46 L Pulse Oximetry 93 94 Oxygen Delivery Me thod Room Air Room Air 12/15/22 20:31 12/16/22 00:56 12/16/22 03:40 Temperature 98.5 F 97.9 F 97.9 F Pulse Rate [Left R adial] Pulse Rate [Pulse Oximeter] 107 H 90 92 Respiratory Rate 20 20 18 Blood Pressure [Ri ght Arm] 141/76 H 129/77 121/87 Pulse Oximetry 94 92 92 Oxygen Delivery Me thod Room Air Room Air Room Air 12/16/22 07:00 Temperature 99.1 F Pulse Rate [Left R adial] Pulse Rate [Pulse Oximeter] 82 Respiratory Rate 18 Blood Pressure [Ri ght Arm] 105/55 L Pulse Oximetry 96 Oxygen Delivery Me thod Room Air Progress Note: A&P Assessment and plan (1) S/P laparoscopic cholecystectomy: Problem details: 87-year-old female s/p laparoscopic cholecystectomy POD 7. Overall patient is doing well from her surgery. She continues to be deconditioned and needs help ambulating. She is hypokalemic and hypomagnesemic and those are replaced by the hospitalist. Patient's burn has an appearance of blistering but I think it is due to her edematous skin And she does not actually have fluid-filled blisters. Her forearm was wrapped with an Jeffrey wrap to prevent scratching. Status: Acute
[2022-12-16] MEDS: POTASSIUM BICARB 25 MEQ EFFERVESCENT TAB 50 MEQ PO ×3 (11:46→16:08)
[2022-12-16] MEDS: APIXABAN 5 MG TABLET 2.5 MG PO (11:47)
[2022-12-16] MEDS: METOPROLOL SUCCINATE (XL) 50 MG TAB PO (11:48)
[2022-12-16] MEDS: MAGNESIUM SULFATE 2 GM/50 ML PIGGYBACK IVPB (11:49)
[2022-12-16] MEDS: TORSEMIDE 100 MG TABLET PO (11:53)
--- NOTE | 2022-12-16 12:47 | PM.IMPN1 ---
Progress Note: A&P Assessment and plan (1) S/P laparoscopic cholecystectomy: Problem details: 87-year-old female s/p laparoscopic cholecystectomy POD 7. Patient's burn has an appearance of blistering but I think it is due to her edematous skin And she does not actually have fluid-filled blisters. Her forearm was wrapped with an Jeffrey wrap to prevent scratching. Status: Acute (2) Esophageal dysmotility: Problem details: Barium esophagram shows no esophageal motility Status: Acute (3) CHF with unknown LVEF: Problem details: reviewed echo 09/13, normal EF. Continue increased diuresis due to volume overload. No obvious pulmonary edema. Status: Acute (4) Hypokalemia: Problem details: Increased potassium supplementation and monitor Status: Acute (5) Peritonitis: Problem details: Resolved Status: Acute (6) Ileus: Problem details: Resolved Status: Acute (7) Volume overload: Problem details: Weight is up. Increased torsemide today and monitor. Status: Acute (8) Physical deconditioning: Problem details: Patient has difficulty with mobility. Continue therapy. May need long-term rehab before returning home. Status: Acute (9) Atrial fibrillation with RVR: Problem details: Treat with oral metoprolol. Switch to metoprolol succinate from tartrate. Hold anticoagulation due to blood in stool pending possible upper endoscopy Status: Acute (10) Gastrointestinal bleeding: Problem details: Guaiac-positive stool. Stop Eliquis. Consider upper endoscopy with problems with esophageal dysmotility and GI bleeding. Status: Acute Plan Continue in hospital for ongoing evaluation management of bleeding, hypokalemia. Time Spent With Patient Total time spent: Total time spent today is 45 minutes, 30 minutes in coordination of care discussing with patient and other providers management of recovery from surgery, deconditioning, volume overload, hypokalemia, GI bleed Subjective Date Seen: 12/16/22 Interval history: 87-year-old female seen in followup of cholecystitis with cholecystectomy and peritonitis and ileus. She has improved with her pain gastrointestinal function. Now having some diarrhea. Stool was guaiac positive last evening. Hemoglobin is been stable. She is on Eliquis. Yesterday and today she talked to me about a sense of food getting stuck in her throat and having trouble swallowing. This is primarily been with solids though this morning she reports that even liquid felt like it was not moving down very well. She underwent barium esophagram which showed no esophageal motility. She has been able to eat with swallowing difficulties as noted above. She reports her breathing is okay. She has less bloating today. Exam Narrative: Exam Narrative: She is alert and appears in no distress. Speech is normal. Respirations are clear to auscultation. Cardiovascular: S1, S2, relatively regular rhythm. Abdomen: Bowel sounds active she has mild tenderness the area of her surgical incision but otherwise no significant tenderness. No peritonitis. Extremities with 1+ edema. Const: Vital Signs, click to edit/add: Vital Signs - 24 hr 12/15/22 15:00 12/15/22 15:00 12/15/22 20:31 Temperature 98.3 F 98.5 F Pulse Rate [Left R adial] 104 H Pulse Rate [Pulse Oximeter] 90 107 H Respiratory Rate 20 20 20 Blood Pressure [Ri ght Arm] 111/46 L 141/76 H Pulse Oximetry 94 94 Oxygen Delivery Me thod Room Air Room Air 12/16/22 00:56 12/16/22 03:40 12/16/22 07:00 Temperature 97.9 F 97.9 F 99.1 F Pulse Rate [Left R adial] Pulse Rate [Pulse Oximeter] 90 92 82 Respiratory Rate 20 18 18 Blood Pressure [Ri ght Arm] 129/77 121/87 105/55 L Pulse Oximetry 92 92 96 Oxygen Delivery Me thod Room Air Room Air Room Air 12/16/22 07:00 12/16/22 11:00 Temperature 98.9 F Pulse Rate [Left R adial] Pulse Rate [Pulse Oximeter] 82 86 Respiratory Rate 18 20 Blood Pressure [Ri ght Arm] 115/59 L Pulse Oximetry 98 Oxygen Delivery Co thod Room Air Labs Labs: Laboratory Results - last 24 hr 12/15/22 12/15/22 12/16/22 15:29 21:55 06:20 WBC 17.29 H RBC 4.08 Hgb 11.4 L Hct 34.6 MCV 85 MCH 28 MCHC 33 RDW Coeff of Marissa 14.7 Plt Count 443 H Neut % (Auto) 80.6 H Lymph % (Auto) 12.2 L [place] % (Auto) 5.8 Eos % (Auto) 0.5 Baso % (Auto) 0.1 Neut # (Auto) 13.90 H Lymph # (Auto) 2.10 [place] # (Auto) 1.00 H Eos # (Auto) 0.10 Baso # (Auto) 0.00 Sodium Potassium 3.2 L Chloride Carbon Dioxide BUN Creatinine Estimated Creat Clear Estimated GFR Glucose Calcium Magnesium Stl C.difficile Tox PCR Negative St C. diff Tox Epid 027 PRESUMPTIVE NEGATIVE 12/16/22 06:20 WBC RBC Hgb Hct MCV MCH MCHC RDW Coeff of Marissa Plt Count Neut % (Auto) Lymph % (Auto) [place] % (Auto) Eos % (Auto) Baso % (Auto) Neut # (Auto) Lymph # (Auto) [place] # (Auto) Eos # (Auto) Baso # (Auto) Sodium 134 L Potassium 2.5 L* Chloride 97 Carbon Dioxide 30 BUN 5 L Creatinine 0.8 Estimated Creat Clear 35.52 Estimated GFR 72 Glucose 98 Calcium 6.6 L Magnesium 1.4 L Stl C.difficile Tox PCR St C. diff Tox Epid 027
[2022-12-16] MEDS: diphenhydrAMINE 25 MG CAPSULE PO ×3 (13:32→23:04)
--- NOTE | 2022-12-16 15:15 | PC.SOCIAL ---
Addendum entered by TIMBO Snow 12/16/22 15:31: Updated pt.'s daughter. Will update pt. in the am. Original Note: Pt. has been accepted to the [facility] in [facility] when authorization from [employer] comes through.
[2022-12-16] MEDS: HYDROmorphone 2 MG TABLET PO (16:08)
[2022-12-16 19:35] LABS: Potassium* 2.9 mmol/L (3.6-5.1)
--- NOTE | 2022-12-16 19:35 | PC.NURSE ---
Pt is alert and oriented x3. Afebrile. Pt reports 6/10 pain in abdomen, pain managed with PRN medications. Pt reports SOB with movement. Pt denies chest pain and N/V. Rash was noted in AM assessment to arms and abdomen, MD was notified, PRN Benadryl. Abdominal dressing is CDI. Pt is up A1 with walker and gait belt. Pt is tolerating a full liquid diet. ???
[2022-12-16] MEDS: ATORVASTATIN CALCIUM 40 MG TABLET 80 MG PO (20:38)
[2022-12-16] MEDS: POTASSIUM CHLORIDE 10 MEQ/100 ML PIGGYBACK 100 MEQ IVPB (23:16)
[2022-12-17] VITALS (7 sets, daily range): BP systolic 97–141; BP diastolic 54–85; PULSE 89–117; RESP 18–20; TEMP 36.1–37.3; O2SAT 93–99
[2022-12-17] MEDS: POTASSIUM BICARB 25 MEQ EFFERVESCENT TAB 50 MEQ PO ×3 (00:42→08:49)
[2022-12-17] MEDS: diphenhydrAMINE 25 MG CAPSULE PO ×2 (05:03→13:17)
[2022-12-17] MEDS: Fluticasone-Umeclidin-Vilanter [Trelegy Ellipta] 1 EACH IH (05:55)
--- NOTE | 2022-12-17 06:53 | PC.NURSE ---
: pt pleasant. Pt refused oral K+, accepted IV K+ (pt said she had gotten it?IV before in the past and that she would be able to tolerate it). Pt unable to tolerate IV K d/t ?burning? and ?aching? and her arm feeling like it had been ?run over?, attempted to decrease drip rate and had NS y-sited in, attempted cold pack, attempted heat, pt unable to tolerate and was in tears, pt opted for PO effervesce K+. Area Secretary called Enio Steen OK?d refusal of IV and pt request for PO K+. 2nd dose of K+ was given after her AM blood draw. Pt HR 90s. HR increases to one teens with activity, PRN Metoprolol not given as HR not >110 at rest. Pt SOB with activity. Pt c/o upper abd pain with drinking fluids, states the pain doesn?t last long and declined need for pain medication. Pt wt is down 11kg from yesterday's wt, rechecked wt and got similar wt, Charge notified.
[2022-12-17 06:54] LABS: Basophils Percent Auto 0.2 % (0.0-3.0); Eosinophils Percent Auto 0.5 % (0.0-7.0); Hemoglobin* 11.4 gm/dL (12.0-16.0); Immature Granulocytes Pct Auto 0.4 %; Lymphocytes Percent Auto 15.4 % (20-44); Mean Corpuscular HGB Conc 33 gm/dL (32-36); Mean Corpuscular Hemoglobin 27 pg (26-34); Mean Corpuscular Volume 84 fL (80-100); Monocytes Percent Auto 7.2 % (0.0-11.0); Neutrophils Percent Auto 76.3 % (42.0-72.0); Platelet Count* 461 K/uL (140-440); RDW Coefficient of Variation % 14.6 % (11.5-15.5); Red Blood Count 4.16 m/uL (4.00-5.20); White Blood Count* 16.61 K/uL (4.50-11.00)
[2022-12-17 06:58] LABS: Slide Review Reflex No
[2022-12-17 07:04] LABS: Chloride* 92 mmol/L (96-114); Potassium* 3.3 mmol/L (3.6-5.1); Sodium* 134 mmol/L (135-149)
[2022-12-17 07:07] LABS: Carbon Dioxide* 37 mmol/L (20-32); Creatinine* 0.9 mg/dL (0.5-1.5); Est. Creatinine Clearance* 35.52; Estimated Glomerular Filt Rate 63 ml/min
[2022-12-17 07:08] LABS: Blood Urea Nitrogen* 7 mg/dL (7-30); Calcium* 6.8 mg/dL (8.4-10.6); Glucose* 129 mg/dL (60-115); Magnesium* 1.8 mg/dL (1.5-2.6)
[2022-12-17] MEDS: METOPROLOL SUCCINATE (XL) 50 MG TAB PO (08:49)
[2022-12-17] MEDS: OMEPRAZOLE 20 MG CAPSULE DR PO ×2 (08:49→21:26)
[2022-12-17] MEDS: TORSEMIDE 5 MG TABLET 10 MG PO (08:50)
[2022-12-17] MEDS: ACETAMINOPHEN 325 MG TABLET 650 MG PO (08:50)
[2022-12-17] MEDS: POTASSIUM CHLORIDE 10 MEQ CAPSULE ER PO (09:42)
--- NOTE | 2022-12-17 10:52 | PM.IMPN1 ---
Progress Note: A&P Assessment and plan (1) Acute cholecystitis: Problem details: Status post cholecystectomy. Postoperative ileus appears to have resolved. Advanced diet. Status: Acute (2) S/P laparoscopic cholecystectomy: Problem details: 87-year-old female s/p laparoscopic cholecystectomy POD 7. Patient's burn has an appearance of blistering but I think it is due to her edematous skin And she does not actually have fluid-filled blisters. Her forearm was wrapped with an Jeffrey wrap to prevent scratching. Status: Acute (3) Esophageal dysmotility: Problem details: Barium esophagram shows no esophageal motility Status: Acute (4) CHF with unknown LVEF: Problem details: reviewed echo 09/13, normal EF. Continue increased diuresis due to volume overload. No obvious pulmonary edema. Status: Acute (5) Hypokalemia: Problem details: Increased potassium supplementation and monitor Status: Acute (6) Peritonitis: Problem details: Resolved Status: Acute (7) Ileus: Problem details: Resolved Status: Acute (8) Volume overload: Problem details: Weight is up. Increased torsemide today and monitor. Status: Acute (9) Physical deconditioning: Problem details: Patient has difficulty with mobility. Continue therapy. Would benefit from nursing home rehab before returning home Status: Acute (10) Atrial fibrillation with RVR: Problem details: Treat with oral metoprolol. Switch to metoprolol succinate from tartrate. Hold anticoagulation due to blood in stool pending possible upper endoscopy Status: Acute (11) Gastrointestinal bleeding: Problem details: Guaiac-positive stool. Stop Eliquis. Consider upper endoscopy with problems with esophageal dysmotility and GI bleeding. Status: Acute (12) Urticaria: Problem details: Possibly a side effect of opioid medicine causing histamine release. Treat with Benadryl and monitor for worsening symptoms. Patient is weaning off opioids Status: Acute (13) Atrial fibrillation: Problem details: -rate controlled; eliquis resumed Status: Acute (14) CLL (chronic lymphocytic leukemia): Problem details: Under surveillance only. Has been reassured by Oncology in recent visits. Status: Acute Time Spent With Patient Total time spent: Total time spent today is 40 minutes, 25 minutes in coordination of care discussing with patient other providers ongoing evaluation management of swallowing difficulties GI bleeding deconditioning. Subjective Date Seen: 12/17/22 Interval history: 87-year-old female seen in followup of hospitalization for acute cholecystitis and peritonitis. Underwent cholecystectomy with a postoperative ileus. Ileus is now resolved. She had guaiac-positive stool with stable hemoglobin. Aspirin and Eliquis were held due to concerns about bleeding. She is on Eliquis for atrial fibrillation. Unknown indication for aspirin. I recommend upper endoscopy possibly as an outpatient depending on her clinical course. She had swallowing difficulties and had barium esophagram which showed no esophageal motility. She has been able to eat and drink. She was volume overloaded from her resuscitation and postoperative fluids for her peritonitis. She has been receiving torsemide which has brought her weight down and improved her edema. Is also contributed to her hypokalemia. She has been off antibiotics for a couple days now She has had significant ongoing problems with hypokalemia requiring large doses of potassium replacement. She developed urticaria yesterday. This is better today but she has required a couple doses of Benadryl in the last day. The cause for this is not entirely clear though it is possibly related to hydromorphone. She has a history of itchy rash from codeine and morphine in the past. Possibly histamine release phenomenon from opioids. She reports that she was not sleeping well last night and feels tired today. She has been able to eat. She has no shortness of breath. Her abdominal pain is much improved. Exam Narrative: Exam Narrative: She is alert and appears in no distress. Respirations are clear to auscultation except for rare basilar crackle. Cardiovascular: S1, S2, relatively regular rhythm. Abdomen: Bowel sounds active. Abdomen is soft with minimal tenderness and no mass. Extremities with 2 to 3+ edema bilaterally. Not wearing support hose Const: Vital Signs, click to edit/add: Vital Signs - 24 hr 12/16/22 11:00 12/16/22 15:00 12/16/22 15:00 Temperature 98.9 F 98.6 F Pulse Rate [Pulse Oximeter] 86 113 H 113 H Respiratory Rate 20 20 20 Blood Pressure [Ri ght Arm] 115/59 L 127/77 Pulse Oximetry 98 97 Oxygen Delivery Me thod Room Air Room Air Oxygen Flow Rate 12/16/22 19:00 12/16/22 22:14 12/16/22 22:19 Temperature 97.9 F 98.4 F Pulse Rate [Pulse Oximeter] 100 99 99 Respiratory Rate 18 18 18 Blood Pressure [Ri ght Arm] 131/92 H Pulse Oximetry 93 99 Oxygen Delivery Me thod Room Air Room Air Oxygen Flow Rate 0 12/17/22 02:36 12/17/22 08:00 12/17/22 08:00 Temperature 99.1 F 96.9 F L Pulse Rate [Pulse Oximeter] 103 H 97 97 Respiratory Rate 18 18 18 Blood Pressure [La ght Arm] 134/61 141/69 H Pulse Oximetry 99 99 Oxygen Delivery Me thod Room Air Room Air Oxygen Flow Rate 0 Documenting provider has reviewed patient's vital signs: yes Labs Labs: Laboratory Results - last 24 hr 12/16/22 12/17/22 12/17/22 18:50 05:49 05:49 WBC 16.61 H RBC 4.16 Hgb 11.4 L Hct 35.0 MCV 84 MCH 27 MCHC 33 RDW Coeff of Marissa 14.6 Plt Count 461 H Neut % (Auto) 76.3 H Lymph % (Auto) 15.4 L [place] % (Auto) 7.2 Eos % (Auto) 0.5 Baso % (Auto) 0.2 Neut # (Auto) 12.70 H Lymph # (Auto) 2.60 [place] # (Auto) 1.20 H Eos # (Auto) 0.10 Baso # (Auto) 0.00 Sodium 134 L Potassium 2.9 L* 3.3 L Chloride 92 L Carbon Dioxide 37 H BUN 7 Creatinine 0.9 Estimated Creat Clear 35.52 Estimated GFR 63 Glucose 129 H Calcium 6.8 L Magnesium 1.8
--- NOTE | 2022-12-17 11:43 | P.GSPN_ITS ---
Subjective Subjective Date Seen: 12/17/22 Interval history: Patient is doing well overall however she does not think that she is doing well. She complains of her legs not working well. She is tolerating regular diet. She is passing gas. She denies abdominal pain. Waiting for placement at the longterm. Exam Narrative: Exam Narrative: abdomen: Abdomen is soft, not distended, not tender to palpation. Laparoscopic incisions are healing well with no surrounding erythema. There is resolving ecchymosis at laparoscopic incisions. Const: Vital Signs, click to edit/add: Vital Signs - 24 hr 12/16/22 15:00 12/16/22 15:00 12/16/22 19:00 Temperature 98.6 F 97.9 F Pulse Rate [Pulse Oximeter] 113 H 113 H 100 Respiratory Rate 20 20 18 Blood Pressure [Ri ght Arm] 127/77 Pulse Oximetry 97 93 Oxygen Delivery Me thod Room Air Room Air Oxygen Flow Rate 12/16/22 22:14 12/16/22 22:19 12/17/22 02:36 Temperature 98.4 F 99.1 F Pulse Rate [Pulse Oximeter] 99 99 103 H Respiratory Rate 18 18 18 Blood Pressure [Ri ght Arm] 131/92 H 134/61 Pulse Oximetry 99 99 Oxygen Delivery Me thod Room Air Room Air Oxygen Flow Rate 0 12/17/22 08:00 12/17/22 08:00 Temperature 96.9 F L Pulse Rate [Pulse Oximeter] 97 97 Respiratory Rate 18 18 Blood Pressure [Ri ght Arm] 141/69 H Pulse Oximetry 99 Oxygen Delivery Me thod Room Air Oxygen Flow Rate 0 Progress Note: A&P Assessment and plan (1) S/P laparoscopic cholecystectomy: Status: Acute Assessment and Plan: 87-year-old female s/p laparoscopic cholecystectomy POD 8. Patient is recovering well from her surgery. Waiting for placement at the [facility] due to mobility issues. Patient could try some ensures to increase her calorie intake and protein intake. She continues to have hypokalemia that hospitalist is replacement.
--- NOTE | 2022-12-17 13:45 | PC.SOCIAL ---
Pt. has been accepted to the [facility] for admission and should be ready for discharge on Thursday. Pt.'s daughter Jalyn will arrive at 1pm to transport. Admissions at the [facility] is aware of the discharge time.
--- NOTE | 2022-12-17 15:32 | PC.NURSE ---
End of shift. Pt has been very pleasant. alert and oriented x3. Pt reports 0-2/10 pain in abdomen, pain managed with PRN Tylenol. Pt is SOB with activity. she has a poor appetite. she is only eating bite of food. she denies any chest pain. no N/V. no she had a rash to arms and abdomen, PRN Benadryl today per pt request. Abdominal dressing is CDI. Pt is up A1 with walker and gait belt.???
--- NOTE | 2022-12-17 18:02 | PC.NURSE ---
End of Shift ([id number]): Patient pleasant and cooperative. Patient vitally stable, lungs clear, BS WNL, IV intact. Patient denies pain. Patient abdominal lap sites x4, open to air and intact. Patient 1 assist, walker, gb. Patient urinating. Patient tolerating regular diet but not with much appetite. Ate 1 ice cream and 25% of mashed potatoes. Aqua K pad applied to patients abdomen. Patient with +2 pitting edema in LE's.
[2022-12-17] MEDS: ATORVASTATIN CALCIUM 40 MG TABLET 80 MG PO (21:26)
[2022-12-18] MEDS: diphenhydrAMINE 25 MG CAPSULE PO ×2 (00:40→09:28)
[2022-12-18 03:00] VITALS: BP 112/80; PULSE 108; RESP 20; TEMP 36.4; O2SAT 96
--- NOTE | 2022-12-18 06:11 | PC.NURSE ---
Shift note: Pt is doing well. Complained of itching once tonight and was effectively managed with PRN Benadryl. A/O,vitally stable. Pt has watery stool but denied abd pain.
[2022-12-18] MEDS: Fluticasone-Umeclidin-Vilanter [Trelegy Ellipta] 1 EACH IH (06:59)
[2022-12-18 07:00] VITALS: BP 106/72; PULSE 75; RESP 20; TEMP 36.8; O2SAT 98
[2022-12-18 07:12] LABS: Basophils Percent Auto 0.4 % (0.0-3.0); Eosinophils Percent Auto 1.1 % (0.0-7.0); Hematocrit 33.4 % (33.0-51.0); Hemoglobin* 10.8 gm/dL (12.0-16.0); Immature Granulocytes Pct Auto 0.3 %; Lymphocytes Percent Auto 16.8 % (20-44); Mean Corpuscular HGB Conc 32 gm/dL (32-36); Mean Corpuscular Hemoglobin 28 pg (26-34); Mean Corpuscular Volume 85 fL (80-100); Neutrophils Percent Auto 74.4 % (42.0-72.0); Platelet Count* 391 K/uL (140-440); RDW Coefficient of Variation % 14.7 % (11.5-15.5); Red Blood Count 3.93 m/uL (4.00-5.20); White Blood Count* 13.52 K/uL (4.50-11.00)
[2022-12-18 07:15] LABS: Slide Review Reflex No
[2022-12-18 07:28] LABS: Chloride* 97 mmol/L (96-114)
[2022-12-18 07:29] LABS: Potassium* 3.4 mmol/L (3.6-5.1); Sodium* 135 mmol/L (135-149)
[2022-12-18 07:31] LABS: Creatinine* 0.9 mg/dL (0.5-1.5); Est. Creatinine Clearance* 35.52; Estimated Glomerular Filt Rate 63 ml/min
[2022-12-18 07:32] LABS: Blood Urea Nitrogen* 9 mg/dL (7-30); Calcium* 6.7 mg/dL (8.4-10.6); Carbon Dioxide* 35 mmol/L (20-32); Glucose* 104 mg/dL (60-115)
[2022-12-18 07:35] LABS: C Reactive Protein* 5.6 mg/dL (0.5-1.0)
[2022-12-18] MEDS: ACETAMINOPHEN 325 MG TABLET 650 MG PO ×2 (09:27→21:45)
[2022-12-18] MEDS: POTASSIUM CHLORIDE 10 MEQ CAPSULE ER PO (09:28)
[2022-12-18] MEDS: METOPROLOL SUCCINATE (XL) 50 MG TAB PO (09:28)
[2022-12-18] MEDS: OMEPRAZOLE 20 MG CAPSULE DR PO ×2 (09:28→20:51)
[2022-12-18] MEDS: TORSEMIDE 5 MG TABLET 10 MG PO (09:41)
[2022-12-18 11:00] VITALS: BP 104/91; PULSE 107; RESP 20; TEMP 36.4; O2SAT 96
--- NOTE | 2022-12-18 11:18 | PC.SOCIAL ---
Completed preadmission screening for pt to admit to [facility] on 12/19/2022. Confirmation #[id number]. Faxed copy of PAS to [facility]. Social work will follow up as necessary.
[2022-12-18] MEDS: GI COCKTAIL (VISC LIDO/ANTACID) 30 ML PO (13:25)
[2022-12-18] MEDS: POTASSIUM BICARB 25 MEQ EFFERVESCENT TAB 50 MEQ PO (13:26)
--- NOTE | 2022-12-18 14:13 | PC.NURSE ---
Potassium 3.4 this am, pt received GI cocktail for heartburn and irritated esophagus prior to 50 MeQ of KCL effervescent orange drink which she tolerated w/o difficulty. Eval by PT, OT, Dr. Fong and myself on day shift. Activity level improved but patient continues to state she is tired and moving wears her out. Prn tylenol and prn benadryl given with am med pass. Pt visited with brother in [facility] and her dtr Manuela. Sats maintained on room air. Surgical lap wounds open to air. Plan EGD tomorrow at noon, pt to be NPO post 0400 am. Please check with hospitalist for IVF order when pt is NPO. Poor po intake d/to swallowing discomfort. Report will be provided to oncoming shift RN per protocol.
[2022-12-18 15:00] VITALS: BP 103/70; PULSE 94; RESP 18; TEMP 36.9; O2SAT 93
--- NOTE | 2022-12-18 18:06 | PM.IMPN1 ---
Progress Note: A&P Assessment and plan (1) S/P laparoscopic cholecystectomy: Problem details: Doing well Status: Acute (2) Ileus: Problem details: Resolved Status: Acute (3) Volume overload: Problem details: Weight is stable on home dose of torsemide. Diuresis over the past couple days has helped. Still has ankle edema which would best be treated with compression Status: Acute (4) Physical deconditioning: Problem details: Patient has difficulty with mobility. Continue therapy. Would benefit from half-way rehab before returning home Status: Acute (5) Esophageal dysmotility: Problem details: Barium esophagram shows no esophageal motility. Patient needs to eat very soft foods. If she eats solids to chew them thoroughly and wash them down. She needs to sit bolt upright when eating and swallowing. Status: Acute (6) Gastrointestinal bleeding: Problem details: Guaiac-positive stool. Stop Eliquis. Endoscopy tomorrow to evaluate for GI bleeding. If no high risk lesions resume Eliquis. Status: Acute (7) Urticaria: Problem details: Possibly a side effect of opioid medicine causing histamine release. Treat with Benadryl and monitor for worsening symptoms. Patient is weaning off opioids Status: Acute (8) Hypokalemia: Problem details: Increased potassium supplementation and monitor Status: Acute (9) Peritonitis: Problem details: Resolved Status: Acute (10) Atrial fibrillation with RVR: Problem details: Treat with oral metoprolol. Switch to metoprolol succinate from tartrate. Hold anticoagulation due to blood in stool pending possible upper endoscopy Status: Acute (11) Atrial fibrillation: Problem details: -rate controlled; eliquis restarted if no high-risk bleeding lesions. Status: Acute (12) CLL (chronic lymphocytic leukemia): Problem details: Under surveillance only. Has been reassured by Oncology in recent visits. Status: Acute (13) Acute cholecystitis: Problem details: Status post cholecystectomy. Postoperative ileus appears to have resolved. Advanced diet. Status: Acute (14) HTN (hypertension): Problem details: stable. Resume home medicines Status: Acute (15) COPD (chronic obstructive pulmonary disease): Problem details: -on room air. Doing well Status: Acute Plan Continue in hospital pending endoscopy. Possible discharge to half-way facility tomorrow after endoscopy. Time Spent With Patient Total time spent: Total time today is 35 minutes, 25 minutes in coordination of care discussing with patient and other providers postoperative care management of hypokalemia and GI bleeding and discharge planning Subjective Date Seen: 12/18/22 Interval history: 87-year-old female seen in followup of hospitalization for acute cholecystitis and peritonitis. Underwent cholecystectomy with a postoperative ileus. Ileus is now resolved. She had guaiac-positive stool with stable hemoglobin. Aspirin and Eliquis were held due to concerns about bleeding. She is on Eliquis for atrial fibrillation. Unknown indication for aspirin. I recommend upper endoscopy possibly as an outpatient depending on her clinical course. She had swallowing difficulties and had barium esophagram which showed no esophageal motility. She has been able to eat and drink. She was volume overloaded from her resuscitation and postoperative fluids for her peritonitis. She has been receiving torsemide which has brought her weight down and improved her edema. Is also contributed to her hypokalemia. She has been off antibiotics for a couple days now She has had significant ongoing problems with hypokalemia requiring large doses of potassium replacement. She developed urticaria 2 days ago. This is better today but she has required a couple doses of Benadryl in the last day. The cause for this is not entirely clear though it is possibly related to hydromorphone. She has a history of itchy rash from codeine and morphine in the past. Possibly histamine release phenomenon from opioids. Patient reports feeling much better today. She has more energy. Mood is brighter. She had not a walk in the hallway for the 1st time. She feels stronger. Her abdominal pain is better her urticaria is better. she is not taking hydromorphone for more than 24 hours Exam Narrative: Exam Narrative: She is alert and appears in no distress. Mood and affect are bright. Respirations are clear to auscultation. Cardiovascular: S1, S2, relatively regular rhythm. Abdomen is soft without tenderness or mass. Laparoscopic surgery sites are well healed. Extremities with 2+ edema. She is not wearing support hose. Const: Vital Signs, click to edit/add: Vital Signs - 24 hr 12/17/22 19:00 12/17/22 23:00 12/18/22 03:00 Temperature 98.4 F 97.9 F 97.6 F Pulse Rate [Pulse Oximeter] 96 98 108 H Respiratory Rate 20 20 20 Blood Pressure [Ri ght Arm] 100/70 112/68 112/80 Pulse Oximetry 93 94 96 Oxygen Delivery Me thod Room Air Room Air Room Air Oxygen Flow Rate 0 0 0 12/18/22 07:00 12/18/22 11:00 12/18/22 15:00 Temperature 98.2 F 97.5 F L Pulse Rate [Pulse Oximeter] 75 107 H 94 Respiratory Rate 20 20 Blood Pressure [Ri ght Arm] 106/72 104/91 H Pulse Oximetry 98 96 Oxygen Delivery Me thod Room Air Room Air Oxygen Flow Rate 12/18/22 15:00 Temperature 98.4 F Pulse Rate [Pulse Oximeter] 94 Respiratory Rate 18 Blood Pressure [[facility] Arm] 103/70 Pulse Oximetry 93 Oxygen Delivery Me thod Room Air Oxygen Flow Rate 0 Documenting provider has reviewed patient's vital signs: yes Labs Labs: Laboratory Results - last 24 hr 12/18/22 12/18/22 06:59 06:59 WBC 13.52 H RBC 3.93 L Hgb 10.8 L Hct 33.4 MCV 85 MCH 28 MCHC 32 RDW Coeff of Marissa 14.7 Plt Count 391 Neut % (Auto) 74.4 H Lymph % (Auto) 16.8 L [place] % (Auto) 7.0 Eos % (Auto) 1.1 Baso % (Auto) 0.4 Neut # (Auto) 10.10 H Lymph # (Auto) 2.30 [place] # (Auto) 0.90 Eos # (Auto) 0.10 Baso # (Auto) 0.10 Sodium 135 Potassium 3.4 L Chloride 97 Carbon Dioxide 35 H BUN 9 Creatinine 0.9 Estimated Creat Clear 35.52 Estimated GFR 63 Glucose 104 Calcium 6.7 L C-Reactive Protein 5.6 H
--- NOTE | 2022-12-18 18:26 | PC.NURSE ---
Shift note: Pt continue to complain of pain on swallowing but able to eat about 25% of dinner. Education on NPO after midnight for upper endoscopic procedure given and demonstrated understanding. No itching, nausea/vomiting reported. Doing well with A1 for ambulation with walker and GB.
[2022-12-18] MEDS: 0.9 % SODIUM CH + KCL 20 mEq/L 1,000 ML 75 ML IV (18:46)
[2022-12-18 19:00] VITALS: BP 112/69; PULSE 77; RESP 18; TEMP 37; O2SAT 99
[2022-12-18] MEDS: ATORVASTATIN CALCIUM 40 MG TABLET 80 MG PO (20:51)
[2022-12-18 23:00] VITALS: BP 114/81; PULSE 77; PULSE 86; RESP 16; RESP 18; TEMP 36.9; O2SAT 95
[2022-12-19 03:00] VITALS: BP 119/77; PULSE 66; RESP 18; TEMP 36.6; O2SAT 96
[2022-12-19 07:00] LABS: Basophils Absolute Auto 0.03 K/uL (0.00-0.30); Basophils Percent Auto 0.3 % (0.0-3.0); Eosinophils Absolute Auto 0.17 K/uL (0.00-0.50); Eosinophils Percent Auto 1.6 % (0.0-7.0); Hematocrit 31.6 % (33.0-51.0); Hemoglobin* 10.2 gm/dL (12.0-16.0); Immature Granulocytes Abs Auto 0.03 K/uL (0.00-0.30); Immature Granulocytes Pct Auto 0.3 %; Lymphocytes Absolute Auto 2.25 K/uL (0.90-2.90); Lymphocytes Percent Auto 21.5 % (20-44); Mean Corpuscular HGB Conc 32 gm/dL (32-36); Mean Corpuscular Hemoglobin 28 pg (26-34); Mean Corpuscular Volume 85 fL (80-100); Monocytes Percent Auto 7.4 % (0.0-11.0); Neutrophils Absolute Auto 7.22 K/uL (1.7-7.0); Neutrophils Percent Auto 68.9 % (42.0-72.0); Platelet Count* 432 K/uL (140-440); RDW Coefficient of Variation % 14.7 % (11.5-15.5); White Blood Count* 10.48 K/uL (4.50-11.00)
[2022-12-19] MEDS: Fluticasone-Umeclidin-Vilanter [Trelegy Ellipta] 1 EACH IH (07:00)
[2022-12-19 07:09] LABS: Chloride* 102 mmol/L (96-114); Potassium* 3.5 mmol/L (3.6-5.1); Sodium* 136 mmol/L (135-149)
[2022-12-19 07:11] LABS: Slide Review Reflex No
[2022-12-19 07:12] LABS: Blood Urea Nitrogen* 7 mg/dL (7-30); Carbon Dioxide* 31 mmol/L (20-32); Creatinine* 0.9 mg/dL (0.5-1.5); Est. Creatinine Clearance* 35.52; Estimated Glomerular Filt Rate 63 ml/min; Glucose* 100 mg/dL (60-115)
[2022-12-19 07:13] LABS: Calcium* 6.5 mg/dL (8.4-10.6)
--- NOTE | 2022-12-19 07:38 | PC.NURSE ---
Patient is alert and oriented x3, uses call light appropriately. Requires assist of one with transfers. continent of bowel and bladder. denies pain on assessment. Pt has scheduled endoscopy this morning, was NPO mid-night. Patient appears stable, call light with in reach.
--- NOTE | 2022-12-19 08:12 | W.ANESCHARGE ---
Anesthesia Charges Start Date/Time Anesthesia Start Date: 12/19/22 Anesthesia Start Time: 07:43 Stop Date/Time Anesthesia Stop Date: 12/19/22 Anesthesia Stop Time: 08:10 Summary Emergency: No Extremes of Age: Over 72-CPT [id number]
[2022-12-19 09:00] VITALS: BP 91/73; PULSE 116; RESP 18; RESP 20; TEMP 36.4; O2SAT 95
[2022-12-19 09:15] VITALS: BP 88/56; PULSE 108; RESP 20; TEMP 36.2; O2SAT 97
[2022-12-19] MEDS: IPRAT-ALBUT 0.5-2.5 MG/3 ML NEB 1 NEB IH (09:32)
[2022-12-19] MEDS: FLUCONAZOLE 100 MG TABLET 400 MG PO (09:47)
[2022-12-19] MEDS: OMEPRAZOLE 20 MG CAPSULE DR PO (09:47)
[2022-12-19 10:00] VITALS: BP 106/78; PULSE 101; RESP 20; O2SAT 97
[2022-12-19 11:00] VITALS: BP 111/68; PULSE 85; RESP 20; TEMP 36.4; O2SAT 98
[2022-12-19] MEDS: POTASSIUM CHLORIDE 10 MEQ CAPSULE ER PO (11:04)
[2022-12-19] MEDS: METOPROLOL SUCCINATE (XL) 50 MG TAB PO (11:04)
[2022-12-19] MEDS: TORSEMIDE 5 MG TABLET 10 MG PO (11:04)
--- NOTE | 2022-12-19 13:05 | PC.NURSE ---
PATIENT RETURNED FROM ENDOSCOPY REPORTING DYSPNEA AND PRODUCTIVE COUGH. O2 SATS AT THAT TIME 95-97%RA. PRODUCTIVE COUGH WITH MODERATE AMOUNT THICK SPUTUM. DUONEB ADMINISTERED PER MD AND RESPIRATORY CONSULT COMPLETED. PATIENT WAS ABLE TO EAT BREAKFAST AND STATED HER BREATHING FELT IMPROVED AFTER BREAKFAST. UP WITH SBA 1, WALKER AND GAIT BELT TO BATHROOM. DENIED PAIN. SALINE LOCK DC'D AND PATIENT DC'D TO [facility] VIA DAUGHTER.
--- NOTE | 2022-12-19 17:19 | PM.DS1 ---
DS: Providers Provider Date Seen: 12/19/22 Date of admission: 12/07/22 14:21 Primary care physician: Not a Local Provider Admitting Clinician: Po Story MD Attending Physician on discharge: Red Fong MD Date of Discharge: 12/19/22 DS: Diagnosis Discharge Diagnosis (1) S/P laparoscopic cholecystectomy: Status: Acute Problem details: Doing well after her peritonitis and ileus resolved (2) Ileus: Status: Acute Problem details: Postop ileus resolved (3) Volume overload: Status: Acute Problem details: Developed volume overload from fluid resuscitation. Now back to baseline. (4) Physical deconditioning: Status: Acute Problem details: Patient has difficulty with mobility. Continue therapy. [facility] facility rehab before returning home (5) Esophageal dysmotility: Status: Acute Problem details: Barium esophagram shows no esophageal motility. Patient needs to eat very soft foods. If she eats solids to chew them thoroughly and wash them down. She needs to sit bolt upright when eating and swallowing. (6) Gastrointestinal bleeding: Status: Acute Problem details: Guaiac-positive stool. Upper Endoscopy today on the day of discharge showed no site of bleeding but fairly extensive esophageal candidiasis. (7) Urticaria: Status: Acute Problem details: Possibly a side effect of opioid medicine causing histamine release. Treat with Benadryl and monitor for worsening symptoms. Patient is weaning off opioids (8) Hypokalemia: Status: Acute Problem details: Increased potassium supplementation and monitor. With esophageal dysmotility needs to be careful that pills, especially potassium, do not get stuck in her esophagus (9) Peritonitis: Status: Acute Problem details: Resolved with 1 week of IV antibiotic (10) Atrial fibrillation with RVR: Status: Acute Problem details: Treat with oral metoprolol. Switch to metoprolol succinate from tartrate. Resume anticoagulation with apixaban (11) Atrial fibrillation: Status: Acute Problem details: -rate controlled; eliquis restarted. (12) CLL (chronic lymphocytic leukemia): Status: Acute Problem details: Under surveillance only. Has been reassured by Oncology in recent visits. (13) Acute cholecystitis: Status: Acute Problem details: Status post cholecystectomy. Postoperative ileus appears to have resolved. (14) HTN (hypertension): Status: Acute Problem details: stable. Resume home medicines (15) COPD (chronic obstructive pulmonary disease): Status: Acute Problem details: -on room air. Doing well (16) Deja esophagitis: Status: Acute Problem details: Diflucan 200 mg daily for 3 weeks DS: Summary Hospital Course Hospital Course: 87-year-old female admitted to the hospital with abdominal pain. She was found to have acute cholecystitis. She was quite ill. Had IV antibiotics. Proceeded to laparoscopic cholecystectomy. Had postoperative ileus with peritonitis. Continued on IV antibiotics and IV fluids. Gradual improvement in her symptoms. Had some swallowing problems which for acute on chronic. Found to have fairly severe esophageal dysmotility as well as esophageal candidiasis. Had guaiac-positive stool but a stable hemoglobin. Upper endoscopy showed esophageal candidiasis without site of bleeding. COPD and atrial fibrillation relatively well controlled. Fluid resuscitation did cause some fluid overload for which she was treated with torsemide. She also had significant problems with hypokalemia. These were addressed with oral potassium. Status at Discharge Cognitive/behavioral status at discharge: Baseline Functional status at discharge: uses cane/walker Overall status at discharge: patient is progressing back to baseline Time Spent with Patient Time attestation: Total time spent providing and/or coordinating discharge services: Time spent: Greater than 30 minutes Exam Narrative: Exam Narrative: She is alert and appears in no distress. Respirations are clear to auscultation without wheezing. Breathing is unlabored. Cardiovascular: S1, S2, somewhat irregular rhythm. Abdomen is soft without significant tenderness surgical sites are well healed. Extremities with 2+ edema. No support hose. Const: Vital Signs, click to edit/add: Vital Signs - 24 hr 12/18/22 19:00 12/18/22 23:00 12/18/22 23:00 Temperature 98.6 F 98.4 F Pulse Rate [Pulse Oximeter] 77 77 86 Respiratory Rate 18 18 16 Blood Pressure [Ri ght Arm] 112/69 114/81 Pulse Oximetry 99 95 Oxygen Delivery Me thod Room Air Room Air Oxygen Flow Rate 12/19/22 03:00 12/19/22 09:00 12/19/22 11:00 Temperature 97.8 F 97.5 F L 97.5 F L Pulse Rate [Pulse Oximeter] 66 116 H 85 Respiratory Rate 18 18 20 Blood Pressure [Ri ght Arm] 119/77 91/73 111/68 Pulse Oximetry 96 95 98 Oxygen Delivery Me thod Room Air Room Air Room Air Oxygen Flow Rate 0 0 12/19/22 10:00 12/19/22 09:00 12/19/22 09:15 Temperature 97.1 F L Pulse Rate [Pulse Oximeter] 101 H 116 H 108 H Respiratory Rate 20 20 20 Blood Pressure [Ri ght Arm] 106/78 88/56 L Pulse Oximetry 97 97 Oxygen Delivery Me thod Room Air Room Air Oxygen Flow Rate Documenting provider has reviewed patient's vital signs: yes DS: Data Data Completed and Pending Labs on day of discharge: Labs from last 24 hours 12/19/22 12/19/22 06:20 06:20 WBC 10.48 RBC 3.70 L Hgb 10.2 L Hct 31.6 L MCV 85 MCH 28 MCHC 32 RDW Coeff of Marissa 14.7 Plt Count 432 Neut % (Auto) 68.9 Lymph % (Auto) 21.5 Owsley % (Auto) 7.4 Eos % (Auto) 1.6 Baso % (Auto) 0.3 Neut # (Auto) 7.22 H Lymph # (Auto) 2.25 Owsley # (Auto) 0.80 Eos # (Auto) 0.17 Baso # (Auto) 0.03 Sodium 136 Potassium 3.5 L Chloride 102 Carbon Dioxide 31 BUN 7 Creatinine 0.9 Estimated Creat Clear 35.52 Estimated GFR 63 Glucose 100 Calcium 6.5 L Discharge Plan Discharge Disposition: [facility] Date of Admission: 12/07/22 14:21 Attending Provider on Discharge: Rakesh Fong Consulting Providers: Zayra Cisneros Primary Care Provider: Provider,Not a Local Discharge Medications: New fluconazole [Diflucan] 100 mg Tablet 200 mg PO DAILY Qty: 20 0RF potassium chloride 10 mEq Capsule, Extended Release 10 meq PO TIDWM Qty: 90 0RF Rx Instructions: Patient SP sitting upright and drink adequate water or eat food after potassium pill metoprolol succinate 50 mg Tablet Extended Release 24 Hr 50 mg PO DAILY Qty: 30 0RF melatonin 3 mg Tablet 3 mg PO HS PRNQty: 30 0RF omeprazole 20 mg Capsule,Delayed Release(Dr/Ec) 20 mg PO DAILY Qty: 30 0RF magnesium 250 mg tablet 250 mg PO DAILY Qty: 30 0RF Continued Eliquis 2.5 mg tablet 2.5 mg PO BID Label Comments: TAKE 1 TABLET BY MOUTH TWICE DAILY torsemide 10 mg tablet 10 mg PO DAILY Trelejose Ellipta 100-62.5-25 mcg blister with device 1 inh INHALATION DAILY Label Comments: INHALE 1 PUFF BY MOUTH EVERY DAY atorvastatin [Lipitor] 80 mg tablet 80 mg PO HS multivitamin [Daily Multi-Vitamin] Tablet 1 tab PO DAILY albuterol sulfate 90 mcg/actuation aerosol powdr breath activated 2 inh inhalation Q6H PRN cholecalciferol (vitamin D3) 25 mcg (1,000 unit) capsule 75 mcg PO DAILY calcium carbonate [Tums Ultra] 400 mg calcium (1,000 mg) tablet,chewable 400 mg PO DAILY sennosides-docusate sodium [Senna with Docusate Sodium] 8.6-50 mg tablet 1 tab-cap PO DAILY Changed diphenhydramine HCl [Allergy Medication] 25 mg capsule 25 mg PO Q6H PRNQty: 30 0RF Discontinued metoprolol tartrate 50 mg tablet 50 mg PO DAILY Label Comments: TAKE 1 TABLET BY MOUTH EVERY DAY WITH MEALS aspirin [Aspirin Childrens] 81 mg tablet,chewable 81 mg PO DAILY Discharge Orders: Discharge Order (Routine); Ordered 12/19/22 Ordered By: Rakesh Fong Activity Level: Up with assist and Use Walker Discharge Diet: Regular Diet Detail: Diet should be mechanical soft food or well chewed food that is easy to swallow. It is important that the patient is sitting directly upright when swallowing. She has very poor esophageal motility and food will only go down with the assistance of gravity. Dysphagia Food: Level 6- Soft & Bite size Follow Up Appointments: Provider,Not a Local [Primary Care Provider] - Admit to: SNF Discharge Potential: Good Length of Stay: <30 days Can use facility standing orders?: Yes Code Status: Full Code TEDs: Bilateral Knee Rehab Potential: Good Therapy: Physical Therapy and Occupational Therapy Therapy Orders: Evaluate and Treat Oxygen: No Lab Orders: Lab in 5 days: Basic metabolic panel, magnesium.
== END 2022-12-19 12:40 | DRG 417 ==
LOC: ED 13:08 → MEDSURG 14:16
PROVIDERS: Family Medicine; Surgery; Admitting Provider Hospitalist; Emergency Provider Family Medicine; Visit Provider Hospitalist
PROC: 0FT44ZZ Resection of Gallbladder, Percutaneous Endoscopic Approach (ICD-10-PCS; CPT 47562; principal; 2022-12-09 11:00)
DX: K81.0 Acute cholecystitis (principal); K65.9 Peritonitis, unspecified; K56.7 Ileus, unspecified; I48.20 Chronic atrial fibrillation, unspecified; E87.1 Hypo-osmolality and hyponatremia; I13.0 Hypertensive heart and chronic kidney disease with heart failure and stage 1 through stage 4 chronic kidney disease, or unspecified chronic kidney disease; B37.81 Candidal esophagitis; K22.10 Ulcer of esophagus without bleeding; K92.1 Melena; C91.10 Chronic lymphocytic leukemia of B-cell type not having achieved remission; K82.A1 Gangrene of gallbladder in cholecystitis; I50.9 Heart failure, unspecified; N18.30 Chronic kidney disease, stage 3 unspecified; E87.6 Hypokalemia; E87.70 Fluid overload, unspecified; J44.9 Chronic obstructive pulmonary disease, unspecified; K22.4 Dyskinesia of esophagus; Z79.01 Long term (current) use of anticoagulants; L50.0 Allergic urticaria; T40.2X5A Adverse effect of other opioids, initial encounter; Y92.230 Patient room in hospital as the place of occurrence of the external cause; T22.211A Burn of second degree of right forearm, initial encounter; Y63.5 Inappropriate temperature in local application and packing; I69.331 Monoplegia of upper limb following cerebral infarction affecting right dominant side
CPT/HCPCS: 00731; 00790; 36415; 43239; 51702; 51798; 71045; 74176; 74177; 74220; 80048; 80053; 80076; 81001; 82077; 82248; 82330; 82803; 82977; 83690; 83735; 83880; 84100; 84132; 84145; 84484; 85025; 85379; 85610; 85730; 86140; 87086; 87186; 87205; 87493; 87635; 88304; 88305; 93005; 94640; 94664; 97110; 97116; 97162; 97165; 97530; 97535; 99100; 99284; 99285; G0378; A9270; C9113; J0330; J0360; J0610; J0780; J1100; J1170; J1650; J1940; J2370; J2405; J2543; J2704; J3010; J3475; J3480; J3490; J7030; J7050; J7120; Q9967

== ENCOUNTER 2023-12-06 13:25 | Emergency (ER) | payer OTHER, SELFPAY ==
[2023-12-06 13:37] LABS: Appearance Urine Clear (Clear); Bilirubin Urine Negative (Negative); Blood Urine Trace-intact (Negative); Color Urine Yellow (Yellow); Glucose Urine Negative (Negative); Ketones Urine Negative (Negative); Leukocyte Esterase Urine Negative (Negative); Nitrite Urine Negative (Negative); Protein Urine Negative (Negative); Specific Gravity Urine 1.015 (1.000-1.030); Urobilinogen Urine 0.2 (0.2-1.0); pH Urine 6.5 (5.0-8.5)
[2023-12-06 13:45] VITALS: BP 150/90; PULSE 67; RESP 20; TEMP 37.2; O2SAT 90; BMI 34.3
[2023-12-06 13:50] LABS: Bacteria Urine Few; RBC Urine 0-2 (0-2); Squamous Epithelial Cell Urine Few (None-Few); WBC Urine 0-2 (0-5)
--- NOTE | 2023-12-06 13:57 | CRLHL7_ITS ---
For Patients: As a result of the Cures Act, medical imaging exams and procedure reports are released immediately into your electronic medical record. You may view this report before your referring provider. If you have questions, please contact your health care provider. INDICATION: COVID positive, shortness of breath. TECHNIQUE: Chest 1 view. COMPARISON: Chest radiograph 12/10/2022. FINDINGS: No focal consolidation, pleural effusion, or pneumothorax. Stable cardiomegaly. Pulmonary vasculature is within normal limits. Aortic calcification. Degenerative changes of the shoulders. IMPRESSION: 1. No acute cardiopulmonary findings. 2. Stable cardiomegaly. Dictated by Michelle Shen MD @ 12/06/2023 3:09:37 PM (Electronically Signed)
--- OUTSIDE RECORDS SUMMARY | 2023-12-06 14:08 | XMS_ITS | Clinical Summary ---
Author Name Unknown Organization [facility] Address [place], [place] [address] Care Team Providers Care Section Chief Name Role Phone Bing Markham MD Primary Care Provider Allergies Active Allergy Reactions Criticality Noted Date Comments Alendronate Other - Describe In Comment Field Low 12/16/2021 Nauseated, joint pain Codeine Rash 04/10/2015 Morphine Rash 04/10/2015 Phenobarbital Itching 07/15/2019 Sulfa (Sulfonamide Antibiotics) Stomach Upset 04/10/2015 Medications Medication Sig Dispensed Refills Start Date End Date Status albuterol HFA (PROAIR HFA) 90 mcg/actuation inhaler Inhale 2 Puffs by mouth 4 times daily if needed. 0 04/10/2015 Active cholecalciferol (VITAMIN D3) 1,000 unit capsule Take 1 Capsule by mouth. 0 Active artificial tears, Cqwrp-[id number]-Xgm, 0.1-0.3-0.2 % ophthalmic solution Place 1 Drop into the eye(s). 0 Active ibuprofen (ADVIL; MOTRIN) 200 mg tablet Take 400 mg by mouth every 6 hours if needed. 0 Active calcium carbonate CHEWABLE (Tums Ultra) 400 mg calcium (1,000 mg) chew Chew 1 Tablet by mouth once daily. 0 10/02/2022 Active multivitamin (MVI) tablet Take 1 Tablet by mouth once daily. 0 10/02/2022 Active Eliquis 2.5 mg tabletIndications: Chronic atrial fibrillation (HC) Take 1 Tablet (2.5 mg) by mouth two times daily. 180 Tablet 3 03/09/2023 Active torsemide (DEMADEX) 10 mg tabletIndications: HTN (hypertension) TAKE 1 TABLET BY MOUTH TWICE DAILY 180 Tablet 0 07/09/2023 Active metoprolol succinate (TOPROL XL) 50 mg sustained-release tabletIndications: HTN (hypertension) TAKE 1 TABLET(50 MG) BY MOUTH EVERY DAY 90 Tablet 0 11/03/2023 Active fluticasone wdb-oszxnfnkfkqr-r ilanterol (Trelegy Ellipta) 100-62.5-25 mcg inhalerIndications :Chronic obstructive pulmonary disease, unspecified COPD type (HC) Inhale 1 Puff by mouth once daily. 180 Each 0 11/26/2023 Active fluticasone xsx-qwwawwfrmhcy-d ilanterol (Trelegy Ellipta) 100-62.5-25 mcg inhalerIndications :Chronic obstructive pulmonary disease, unspecified COPD type (HC) Inhale 1 Puff by mouth once daily. 180 Each 3 01/14/2023 11/24/2023 Discontinued (Reorder (E-cancel not sent)) Hospital, Clinic, or Other Facility Administered Medication Ordered Dose Route Frequency Start Date End Date Status denosumab (PROLIA) injection 60 mgIndications:Age-re lated osteoporosis without current pathological fracture 60 mg SubQ Q 6 MONTHS (24 WEEKS) 03/10/2023 02/09/2024 Active Active Problems Problem Noted Date Diagnosed Date Herpes zoster with ophthalmic complication 07/22 Overview: Jun 2023: right forehead and around eye. Given Valtrex. Depression, recurrent 03/09/2023 Chronic lymphocytic leukemia 01/14/2023 Severe obesity with body mas s index (BMI) of 35.0 to 39.9 with comorbidity 01/14/2023 Hypertensive kidney disease with stage 3a chronic kidney disease 01/14/2023 Cerebrovascular accident (CVA) 01/14/2023 Depressed mood 01/14/2023 Chronic atrial fibrillation 10/02/2022 COPD (chronic obstructive pulmonary disease) 08/2022 Age related osteoporosis 10/02/2022 HTN (hypertension) 10/02/2022 Chronic bilateral low back pain without sciatica 01/09/2022 Overview: Last Assessment & Plan: Continue as needed analgesics, minimize use of ibuprofen. Hx of small bowel obstruction 01/14/2021 Overview: Last Assessment & Plan: Patient states that 2 weeks ago she started having abdominal pain associated with nausea and multiple episodes of nonbilious nonbloody emesis, patient went to [facility] for further evaluation, vitals were stable, labs were significant for white blood cell 18k, CT abdomen/pelvis with IV contrast showed mild to distal small bowel obstruction, small infiltrate in the lingular and right lower lobe, patient was admitted for further evaluation, patient was seen by general surgery, NG tube was placed COVID 19 , was negative, patient was started on IV fluids and IV Levaquin chest x-ray showed a right upper lobe airspace opacity, CT chest showed right upper and right lower lobes infiltrates consistent with acute infectious/inflammatory process, small right pleural effusion. Patient passed bowel movement during her hospitalization and she was discharged on antibiotic. Patient is doing much better, denies having any abdominal pain, nausea, vomiting or constipation. 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 Phone Office Visit [facility] [address] [place] [address] Arianna Camilo PA Telehealth (URI) 12/02/2023 Telephone [facility] [address] [place] [address] Bing Markham MD Error-please disregard 11/24/2023 Refill [facility] [address] [place] [address] Bing Markham MD Refill Request (Trelegy Ellipta) 11/02/2023 Refill [facility] [address] [place] [address] Bing Markham MD Refill Request (Metoprolol Succinate) from Last 3 Months Immunizations Name Administration Dates Next Due AMB INFLUENZA IIV3 (AGE 65+ YRS) PF (Flu Clinic Only) 07/17/2022 COVID-19 vaccine (Moderna 100mcg/0.5mL) PF, MDV 07/11/2021,06/13/2021 Hepatitis B (Adult) 11/23/1994 Influenza, High-dose Quadrivalent Inactivated ,08/20/2020 Influenza, Inactivated AIIV4 (Age 65+ Years) Preserv Free 07/17/2022,10/08/2021 Pneumococcal Poly,23-Valent (Pneumovax) 11/23/19 02 Pneumococcal conj 7-Valent (Prevnar 7) 5 Tdap 04/16/2022 Family History Medical History Relation Name Comments Other Daughter Adopted Other Son Adopted Relation Name Status Comments Daughter Alive Son Alive Social History Tobacco Use Types Packs/Day Years Used Date Smoking Tobacco: Former Smokeless Tobacco: Never Tobacco Cessation:Counseling Given: Not Answered Alcohol Use Standard Drinks/Week Comments Yes 0 (1 standard drink = 0.6 oz pur e alcohol) occ PHQ-2 Answer Date Recorded PHQ-2 TOTAL SCORE 2 01/14/2023 Social Connections Answer Date Recorded Frequency of Communication with Friends and Fami ly Not on file 10/02/2022 Sex and Gender Information Value Date Recorded Sex Assigned at Not on file Gender Identity Not on file Sexual Orientation Not on file Obstetrics History Last Filed Vital Signs Vital Sign Reading Time Taken Comments Blood Pressure 98/65 07/20/2023 1:37 PM CDT Pulse 76 07/20/2023 1:37 PM CDT Temperature 37.2 ??C (98.9 ??F) 07/22/2019 2:39 PM CD T Respiratory Rate - - Oxygen Saturation 97% 07/20/2023 1:37 PM CDT Inhaled Oxygen Concentration - - Weight 94.7 kg (208 lb 11.2 oz) 07/20/2023 1:37 PM CDT Height 162 cm (5' 3.78) 01/14/2023 1:18 PM 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 Body Mass Index 36.07 01/14/2023 1:18 PM 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 Plan of Treatment Health Maintenance Due Date Last Done Comments Zoster (shingles) series for age 50+ (1 of 2) 1954 Medicare Wellness for age 65+ 2002 Pneumococcal series for age 65+ (2 of 2 - PCV) 11/23/2015 11/23/2014, 11/23/2001 COVID-19 vaccine series (3 - Moderna risk series) 08/08/2021 07/11/2021, 06/13/2021 Influenza for age 65+ 07/24/2023 07/17/2022 , 07/17/2022, 07/17/2022, Additional history exists BMI (ht and wt on same day) for age 18+ 01/14/2024 01/14/2023, 07/22/2019 Depression screening for age 12+ 01/14/2024 01/14/2023, 01/14/2023, 07/22/2019 Tetanus booster 04/16/2032 04/16/2022 DEXA/DXA scan for age 65+ Completed 2021 (Completed outside of [facility]) Tdap Completed 04/16/2022 Care Teams Section Chief Relationship Specialty Start Date End Date Bing Markham MD [address] [place] [address] PCP - General Family Practice 01/14/23
[2023-12-06] MEDS: IPRAT-ALBUT 0.5-2.5 MG/3 ML NEB 1 NEB IH (14:09)
--- NOTE | 2023-12-06 14:15 | ED_ITS ---
HPI - General Adult General Chief complaint: Shortness of Breath/Dyspnea Stated complaint: covid +, shortness of breath Time Seen by Provider: 12/06/23 13:26 Source: patient and family Mode of arrival: ambulatory Limitations: no limitations History of Present Illness HPI narrative: 88-year-old female coming in today complaining of shortness of breath and coughing for 5 days. Patient states that she also had a fever. She feels achy and tired. Appetite has been decreased. She had 1 episode of diarrhea. No urinary symptoms. No chest or abdominal pain. Cough is dry. Patient states that she had several family members that were positive for COVID-19. Patient does have a history of COPD. Related Data Home Medications Medication Instructions Recorded Confirmed apixaban 2.5 mg tablet (Eliquis) 2.5 mg PO BID 10/31/22 12/06/23 atorvastatin 80 mg tablet (Lipitor) 80 mg PO HS 10/31/22 12/06/23 fluticasone fur. 100 mcg-umeclid 1 inh inhalation DAILY 10/31/22 12/06/23 62.5 mcg-vilant 25 mcg inhalat.powder (Trelegy Ellipta) torsemide 10 mg tablet 10 mg PO DAILY 10/31/22 12/06/23 albuterol sulfate 90 mcg/actuation 2 inh inhalation Q6H PRN 12/07/22 12/06/23 breath activated powder inhaler calcium carbonate 400 mg calcium 400 mg PO DAILY 12/07/22 12/06/23 (1,000 mg) chewable tablet (Tums Ultra) cholecalciferol (vitamin D3) 25 75 mcg PO DAILY 12/07/22 12/06/23 mcg (1,000 unit) capsule multivitamin (Daily Multi-Vitamin 1 tab PO DAILY 12/07/22 12/06/23 tablet) sennosides 8.6 mg-docusate sodium 1 tab-cap PO DAILY 12/07/22 12/06/23 50 mg tablet (Senna with Docusate Sodium) Previous Rx's Medication Instructions Recorded diphenhydramine HCl 25 mg capsule 25 mg PO Q6H PRN #30 caps 12/19/22 (Allergy Medication) fluconazole 100 mg tablet 200 mg (2 x 100 mg) PO DAILY #20 12/19/22 (Diflucan) tabs magnesium 250 mg tablet 250 mg PO DAILY #30 tabs 12/19/22 melatonin 3 mg tablet 3 mg PO HS PRN #30 tabs 12/19/22 metoprolol succinate 50 mg 50 mg PO DAILY #30 tabs 12/19/22 tablet,extended release 24 hr omeprazole 20 mg capsule,delayed 20 mg PO DAILY #30 caps 12/19/22 release potassium chloride 10 mEq 10 meq PO TIDWM #90 caps 12/19/22 capsule,extended release ipratropium 0.5 mg-albuterol 3 mg 3 ml inhalation QID PRN #90 mL 12/06/23 (2.5 mg base)/3 mL nebulization soln prednisone 20 mg tablet 20 mg PO DAILY 3 days #3 tabs 12/06/23 Allergies Allergy/AdvReac Type Severity Reaction Status Date / Time codeine Allergy Mild itchy Verified 12/06/23 13:43 morphine Allergy Mild itchy Verified 12/06/23 13:43 oxycodone Allergy Mild Gastrointestinal Verified 12/06/23 13:43 Upset Sulfa (Sulfonamide Allergy Mild rash Verified 12/06/23 13:43 Antibiotics) Review of Systems Status of ROS: Reports: 10 or more systems reviewed and unremarkable except as noted in History and below [facility] Medical History Deja esophagitis ?B37.81 - Candidal esophagitis (ICD-10) Gastrointestinal bleeding ?K92.2 - Gastrointestinal hemorrhage, unspecified (ICD-10) Esophageal dysmotility ?K22.4 - Dyskinesia of esophagus (ICD-10) Physical deconditioning ?R53.81 - Other malaise (ICD-10) CHF with unknown LVEF ?I50.9 - Heart failure, unspecified (ICD-10) Atrial fibrillation with RVR ?I48.91 - Unspecified atrial fibrillation (ICD-10) CVA (cerebral vascular accident) ?I63.9 - Cerebral infarction, unspecified (ICD-10) 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 - Chronic lymphocytic leukemia of B-cell type not having achieved remission (ICD-10) HTN (hypertension) ?I10 - Essential (primary) hypertension (ICD-10) COPD (chronic obstructive pulmonary disease) ?J44.9 - Chronic obstructive pulmonary disease, unspecified (ICD-10) Atrial fibrillation ?I48.91 - Unspecified atrial fibrillation (ICD-10) Surgical History S/P laparoscopic cholecystectomy ?Z90.49 - Acquired absence of other specified parts of digestive tract (ICD- 10) Hx of total hysterectomy with removal of both tubes and ovaries ?Z90.710 - Acquired absence of both cervix and uterus (ICD-10) ?Z90.722 - Acquired absence of ovaries, bilateral (ICD-10) ?Z90.79 - Acquired absence of other genital organ(s) (ICD-10) Hx of appendectomy ?Z90.49 - Acquired absence of other specified parts of digestive tract (ICD- 10) Social History Narrative: in July of 2022. Lives in [facility]. Has family in [place] and here in [place]. Daughter Manuela and sister Abbey are her emergency contacts. Cellphone 4 Abbey is phone #[phone]. Highest level of school completed/degree received: Bachelor's degree Smoking Status: Never smoker Do you use any of these nicotine containing products: None How often do you have a drink containing alcohol: never How often do you have six or more drinks on one occasion: Never AUDIT-C Alcohol total score: 0 Non-prescribed substance use: denies use Caffeine: Yes (1 cup of coffee/day) service: No Exam Narrative: Exam Narrative: Elderly, well-developed patient in no acute distress. Alert and oriented. Answers questions appropriately. Mood and affect are appropriate. Thoughts are goal oriented and rational. No tangential or magical thinking noted. Patient speaks in full sentences without needing to catch her breath. She does appear ill but not toxic. HEENT: Normocephalic atraumatic. Pupils are equally round reactive to light. Extraocular muscles are intact. Conjunctivae are moist without any icterus noted. Moist mucous membranes. Posterior pharynx is normal. Neck is soft without any lymphadenopathy or thyromegaly. No masses are appreciated. Cardiovascular: Heart is regular rate and rhythm S1 and S2 are present without any murmurs. Lungs: Wheezing bilaterally. Abdomen: Soft and nontender nondistended with normal bowel sounds. Extremities: Bilateral lower extremities are without edema. Skin: Well perfused without any obvious rashes. Const: Vital Signs, click to edit/add: Vital Signs - 24 hr 12/06/23 13:45 Temperature 99 F Pulse Rate [Pulse Oximeter] 67 Respiratory Rate 20 Blood Pressure [Ri ght Upper Arm] 150/90 H Pulse Oximetry 90 Oxygen Delivery Me thod Room Air Course Course ED Course: Triple swab is positive for COVID-19. Chest x-ray, read by me, does not show any acute infiltrate. We did have the patient ambulate and she remained 93-94% on room air with ambulation. She did receive a DuoNeb while she was here and did feel much better afterwards. Wheezing resolved. Vital Signs Vital signs: Initial Vital Signs Temperature 99 F 12/06/23 13:45 Temperature Source Temporal Artery Scan 12/06/23 13:45 Pulse Rate 67 12/06/23 13:45 Pulse Rhythm Regular 12/06/23 13:45 Pulse Strength 3+ Normal 12/06/23 13:45 Respiratory Rate 20 12/06/23 13:45 Blood Pressure 150/90 H 12/06/23 13:45 Blood Pressure Mean 110 H 12/06/23 13:45 Blood Pressure Position Sitting 12/06/23 13:45 Pulse Oximetry 90 12/06/23 13:45 Oxygen Delivery Method Room Air 12/06/23 13:45 Vital Signs Temperature 99 F 12/06/23 13:45 Pulse Rate 67 12/06/23 13:45 Respiratory Rate 20 12/06/23 13:45 Blood Pressure 150/90 H 12/06/23 13:45 Pulse Oximetry 90 12/06/23 13:45 Oxygen Delivery Method Room Air 12/06/23 13:45 Temperature 99 F 12/06/23 13:45 Pulse Rate 67 12/06/23 13:45 Respiratory Rate 20 12/06/23 13:45 Blood Pressure 150/90 H 12/06/23 13:45 Pulse Oximetry 90 12/06/23 13:45 Oxygen Delivery Method Room Air 12/06/23 13:45 Medications Administered Medications: Discontinued Medications Generic Name Dose Route Start Last Admin Trade Name Freq PRN Reason Stop Dose Admin Albuterol/Ipratropium 1 neb 12/06/23 13:58 12/06/23 14:09 Iprat-Albut 0.5-2.5 Mg/3 Ml Neb 12/06/23 13:59 1 neb ONCE ONE Administration Medical Decision Making MDM Narrative Medical decision making narrative: 88-year-old female with COVID-19 and the probable exacerbation of her COPD. She is on day 5 of her symptoms. Paxlovid with potential interactions with her Eliquis atorvastatin and potentially her torsemide. At this time, since she is already on day 5, she is not hypoxic and she is not getting worse I do not recommend Paxlovid. With discussion and mutual decision making, patient also would not like to start Paxlovid at this time. At this time, we will set her up with a nebulizer hand DuoNebs at home, and give her 3 days of steroids as well. We discussed symptomatic treatment and reasons for follow-up. Medical Records Medical records reviewed: Yes I reviewed the patient's medical records Lab Data Lab results reviewed: Yes I reviewed the patient's lab results Labs: Lab Results 12/06/23 12/06/23 Range/Units 13:43 Unknown Urine Color Yellow (Yellow) Urine Appearance Clear (Clear) Urine pH 6.5 (5.0-8.5) Ur Specific [place] 1.015 (1.000-1.030) Urine Protein Negative (Negative) Urine Glucose (UA) Negative (Negative) Urine Ketones Negative (Negative) Urine Blood Trace-intact A (Negative) Urine Nitrite Negative (Negative) Urine Bilirubin Negative (Negative) Urine Urobilinogen 0.2 (0.2-1.0) Ur Leukocyte Esterase Negative (Negative) Urine RBC 0-2 (0-2) Urine WBC 0-2 (0-5) Urine WBC Clumps None (None) Ur Squamous Epith Cells Few (None-Few) Urine Bacteria Few A (None) SARS-CoV-2 (PCR) POSITIVE SARS-CoV-2 A (Negative) Influenza Type A (PCR) Negative PCR FLU A (Negative) Influenza Type B (PCR) Negative PCR FLU B (Negative) RSV (PCR) Negative PCR RSV (Negative) Imaging Data Chest x-ray: Attestation: I have reviewed the pertinent imaging results. Radiologist's impression: Chest 1 view. COMPARISON: Chest radiograph 12/10/2022. FINDINGS: No focal consolidation, pleural effusion, or pneumothorax. Stable cardiomegaly. Pulmonary vasculature is within normal limits. Aortic calcification. Degenerative changes of the shoulders. IMPRESSION: 1. No acute cardiopulmonary findings. 2. Stable cardiomegaly. Discharge Plan Discharge Clinical Impression: COVID-19, COPD exacerbation Patient Disposition: Home, Self-Care Condition: Stable Additional Instructions: Use nebulizer as as often as 4 times per day, as needed for shortness of breath and wheezing. Take daily steroid as prescribed for 3 days. If you feel that despite these treatments your breathing is getting worse, you should return to the ER. Otherwise, you are contagious and you should stay away from other people until you are feeling better. Do your best to stay well hydrated and rest. Prescriptions: New ipratropium-albuterol 0.5 mg-3 mg(2.5 mg base)/3 mL solution for nebulization 3 ml inhalation QID PRNQty: 90 0RF prednisone 20 mg tablet 20 mg PO DAILY 3 Days Qty: 3 0RF No Action Eliquis 2.5 mg tablet 2.5 mg PO BID Patient Comments: TAKE 1 TABLET BY MOUTH TWICE DAILY torsemide 10 mg tablet 10 mg PO DAILY Trelegy Ellipta 100-62.5-25 mcg blister with device 1 inh INHALATION DAILY Patient Comments: INHALE 1 PUFF BY MOUTH EVERY DAY atorvastatin [Lipitor] 80 mg tablet 80 mg PO HS multivitamin [Daily Multi-Vitamin] Tablet 1 tab PO DAILY albuterol sulfate 90 mcg/actuation aerosol powdr breath activated 2 inh inhalation Q6H PRN cholecalciferol (vitamin D3) 25 mcg (1,000 unit) capsule 75 mcg PO DAILY calcium carbonate [Tums Ultra] 400 mg calcium (1,000 mg) tablet,chewable 400 mg PO DAILY sennosides-docusate sodium [Senna with Docusate Sodium] 8.6-50 mg tablet 1 tab-cap PO DAILY fluconazole [Diflucan] 100 mg Tablet 200 mg PO DAILY Qty: 20 0RF potassium chloride 10 mEq Capsule, Extended Release 10 meq PO TIDWM Qty: 90 0RF Rx Instructions: Patient SP sitting upright and drink adequate water or eat food after potassium pill metoprolol succinate 50 mg Tablet Extended Release 24 Hr 50 mg PO DAILY Qty: 30 0RF melatonin 3 mg Tablet 3 mg PO HS PRNQty: 30 0RF omeprazole 20 mg Capsule,Delayed Release(Dr/Ec) 20 mg PO DAILY Qty: 30 0RF diphenhydramine HCl [Allergy Medication] 25 mg capsule 25 mg PO Q6H PRNQty: 30 0RF magnesium 250 mg tablet 250 mg PO DAILY Qty: 30 0RF Follow Up/Referrals: Provider,Not a Local [Primary Care Provider] - Stand Alone Forms: [employer] Info Instructions
[2023-12-06 14:25] LABS: PCR FLU A Negative PCR FLU A (Negative); PCR FLU B Negative PCR FLU B (Negative); PCR RSV Negative PCR RSV (Negative); SARS PCR* POSITIVE SARS-CoV-2 (Negative)
== END 2023-12-06 15:34 | disposition home or self-care (01) ==
PROVIDERS: Emergency Provider Family Medicine
DX: U07.1 COVID-19 (principal); J44.1 Chronic obstructive pulmonary disease with (acute) exacerbation
CPT/HCPCS: 71045; 81001; 87086; 87631; 94640; 99284